=== PATIENT | female | born 1940 | race Caucasian/White ===

== ENCOUNTER 2017-11-05 12:39 | Inpatient (IN) | payer MEDICARE ==
[2017-11-05 13:11] LABS: ABS Basophils 0.1 10^3/ul (0-0.2); ABS Eosinophils 0.2 10^3/ul (0-0.6); ABS Lymphocytes 2.6 10^3/ul (1.0-4.8); ABS Monocytes 0.8 10^3/ul (0-0.8); ABS Nucleated RBC 0 10^3/ul; Eosinophil % 2.6 % (0-6); Hematocrit 32 % (35-47); Hemoglobin 10.9 g/dl (12.0-16.0); Lymphocyte % 29.6 % (25-47); Mean Corpuscular HGB Conc 34 g/dl (31-36); Mean Corpuscular Hemoglobin 32 pg (27-31); Mean Corpuscular Volume 95 fL (80-97); Mean Platelet Volume 9.9 um3 (7.4-10.4); Nucleated Red Blood Cells % 0.1; Platelet Count 163 10^3/ul (150-450); Red Blood Count 3.41 10^6/ul (4.00-5.40); Red Cell Distribution Width 14 % (10.5-15); White Blood Count 8.6 10^3/ul (3.5-10.8)
[2017-11-05 13:16] LABS: INR 0.99 (0.77-1.02)
[2017-11-05 13:34] LABS: EGFR Non-African American 50.7 (>60)
[2017-11-05] MEDS ORDERED: nitroGLYCERIN DRIP* 25,000 MCG/250 ML BTL IV ONE (14:38)
[2017-11-05] MEDS ORDERED: Metoprolol Tartrate IV* 1 MG/ML 5 ML VIAL IV ONE (14:48)
--- NOTE | 2017-11-05 15:03 | RAD ---
Indication: 2 days chest pain and shortness of breath. Coronary artery disease. Comparison: June 11, 2017 CT abdomen and August 30, [address] Technique: Upright AP 1352 hours Report: No focal pulmonary lesion, compelling alveolar consolidation, pleural effusion, pneumothorax. Mild rarefaction of interstitial markings. The heart, pulmonary vasculature, and mediastinal contours are unremarkable. IMPRESSION: #. No evidence for acute intrathoracic disease. #. Rarefaction of the interstitial markings suspicious for potential chronic obstructive pulmonary disease.
[2017-11-05] MEDS ORDERED: Potassium Chloride LIQUID* 20 MEQ PACKET PO ONE (16:05)
[2017-11-05] MEDS ORDERED: Nitroglycerin 2% OINT* 1 GM PAK ONE (16:07)
[2017-11-05] MEDS: Nitroglycerin 2% OINT* 1 GM PAK TOPICAL SCH (16:10)
--- NOTE | 2017-11-05 17:03 | ECHO ---
Patient: DELMA SERNA [facility] Rec#: [id number] : 1940 Date: 11/05/2017 Age: 77y Height: 157.5 cm / 62.0 in Weight: 55.8 kg / 123.0 lbs Sex: F BSA: 1.6 Room#: ED 5 Admit Date#: 11/05/2017 Type: Inpatient Referring: Wyatt Gutierrez MD Reading: Angel Salazar MD Street Light Repairer Helper: Keesha Rodriguez RN RDCS CC: Nadya Zavala MD Transthoracic Echocardiogram Indication: Chest pain BP: 127/66 HR: 74 Rhythm: NSR Findings History: CAD with stent, A. fib, HTN, HLD, hypothyroidism, AAA. Technical Comments: The study quality is fair. Left Ventricle: The left ventricular chamber size is decreased. Mild concentric left ventricular hypertrophy is observed.Sigmoid septum up to 16 mm. There is increased basal septal hypertrophy noted without evidence of an increased gradient across the left ventricular outflow tract. Global left ventricular wall motion and contractility are within normal limits. The left ventricle appears hyperdynamic. The estimated ejection fraction is greater than 65%. Abnormal left ventricular diastolic function is observed. Abnormal left ventricular diastolic filling is observed, consistent with impaired relaxation. Left Atrium: The left atrial chamber size is normal. Right Ventricle: The right ventricular chamber size and systolic function are within normal limits. Right Atrium: The right atrial cavity size is normal. Aortic Valve: The aortic valve is trileaflet. The aortic valve leaflets are mildly thickened. There is no evidence of aortic regurgitation. There is no evidence of aortic stenosis. Mitral Valve: There is mitral annular calcification. The mitral valve leaflets are mildly thickened. There is trace to mild mitral regurgitation. There is no evidence of mitral stenosis. Chordal systolic anterior motion is visualized. Tricuspid Valve: The tricuspid valve leaflets are normal. There is trace to mild tricuspid regurgitation. No pulmonary hypertension is noted. There is no tricuspid stenosis. Pulmonic Valve: The pulmonic valve appears normal. There is a trace pulmonic regurgitation. There is no pulmonic stenosis. Pericardium: There is no significant pericardial effusion. A pericardial fat pad is visualized. Aorta: There is no dilatation of the ascending aorta. The aortic arch is not well visualized. There is no dilation of the aortic root. Pulmonary Artery: The main pulmonary artery appears normal. Venous: The inferior vena cava appears normal in size. There is a greater than 50% respiratory change in the inferior vena cava dimension. Conclusions Mild concentric left ventricular hypertrophy is observed; Sigmoid septum up to 16 mm. The left ventricle appears hyperdynamic. The estimated ejection fraction is greater than 65%. Abnormal left ventricular diastolic filling is observed, consistent with impaired relaxation. The aortic valve leaflets are mildly thickened. There is trace to mild mitral regurgitation. There is trace to mild tricuspid regurgitation. Similar to 4.25.18 Measurements Name Value Normal Range RVDdMajor (2D) 2.8 cm (2.2 - 4.4) RAd ISD 4CH 4.6 cm (3.4 - 4.9) RA (A4C)W 2.7 cm (2.9 - 4.6) IVSd (2D) 1.6 cm (0.6 - 1) LVPWd (2D) 1.2 cm (0.6 - 1) LVIDd (2D) 3.1 cm (3.6 - 5.4) LVIDs (2D) 2.2 cm - LV FS (2D) 29 % (25 - 45) Aortic Annulus 1.6 cm (1.4 - 2.6) Ao root diameter (2D) 2.6 cm (2.1 - 3.5) Ascending Ao 3.1 cm (2.1 - 3.4) LA dimension (AP) 2D 3.2 cm (2.3 - 3.8) LAd ISD 4CH 4.5 cm (2.9 - 5.3) LA ISD 4CH W 3.1 cm (2.5 - 4.5) Name Value Normal Range LA ESV SP 4CH (A/L) 28 ml - LA ESV SP 2CH (A/L) 30 ml - LA ESV BP (A/L) 30 ml - LA ESV BP (A/L) index 19 ml/m2 - LA ESV SP 4CH (MOD) 26 ml - LA ESV SP 2CH (MOD) 29 ml - Name Value Normal Range MV E-wave Vmax 0.7 m/sec - MV deceleration time 286 msec - MV A-wave Vmax 1.2 m/sec - MV E:A ratio 0.6 ratio - LV septal e' Vmax 0.05 m/sec - LV lateral e' Vmax 0.08 m/sec - LV E:e' septal ratio 14 ratio - LV E:e' lateral ratio 8.8 ratio - Name Value Normal Range AV Vmax 1.5 m/sec - AV VTI 33.6 cm - AV peak gradient 8.8 mmHg - AV mean gradient 5.4 mmHg - LVOT Vmax 1.2 m/sec - LVOT VTI 28.7 cm - LVOT peak gradient 5.4 mmHg - LVOT mean gradient 3.7 mmHg - Name Value Normal Range TR Vmax 2.6 m/sec - TR peak gradient 27 mmHg - RAP 3 mmHg - RVSP 30 mmHg - IVC diameter 1.3 cm - Name Value Normal Range PV Vmax 1 m/sec -
[2017-11-05] MEDS ORDERED: Al Hydrox/Mg Hydrox/Simet LIQ* 30 ML UDC PO PRN (17:09)
[2017-11-05] MEDS ORDERED: Ondansetron INJ* 2 MG/ML VIAL IV PRN (17:09)
[2017-11-05] MEDS ORDERED: Iodixanol* (CONTRAST) 320 MG/ML 100 ML SDV IV ONE ×2 (17:40→19:08)
--- NOTE | 2017-11-05 17:47 | ED ---
Rober Nino Angela, scribed for Wyatt Gutierrez MD on 11/05/17 at 1248 . HPI Chest Pain - HPI Summary HPI Summary: This pt is a 77 y/o female presenting to [facility] via EMS c/o chest pain. Pt reports she was ambulating at home today when she suddenly felt SOB at around 12 :00. She notes her chest pain is mid sternal and sometimes radiates to her back between her shoulder blades. EMS administered 324 mg aspirin and nitroglycerin with some relief. Pt notes she has had this chest pain in the past. PMHx includes s/p stent in 2003 (in [place] by Dr. Campbell). Her technical sme is Dr. Salazar. - History of Current Complaint Hx Obtained From: Patient Hx Last Menstrual Period: Years ago. Onset/Duration: Started Hours Ago, Still Present Timing: Lasting Hours Current Severity: Moderate Pain Intensity: 4 Pain Scale Used: 0-10 Numeric Chest Pain Location: Mid Sternal Character: Dull/Aching - Dull Aggravating Factor(s): Nothing Alleviating Factor(s): Nothing Associated Signs and Symptoms: Positive: Chest Pain. Negative: Nausea, Vomiting - Allergy/Home Medications Allergies/Adverse Reactions: Allergies Allergy/AdvReac Type Severity Reaction Status Date / Time albuterol Allergy Intermediate Hives Verified 11/05/17 16:08 tetanus toxoid, adsorbed Allergy Intermediate Rash Verified 11/05/17 16:08 Home Medications: Home Medications Aspirin EC TAB* [Ecotrin EC Low Dose 81 MG*] 81 mg PO DAILY 11/05/17 [History Confirmed 11/05/17] Cholecalciferol TAB* [Vitamin D TAB*] 1,000 unit PO DAILY 11/05/17 [History Confirmed 11/05/17] Digoxin TAB* [Lanoxin TAB*] 0.25 mg PO .FIVE TIMES A WEEK 11/05/17 [History Confirmed 11/05/17] Diltiazem CD CAP* [Cardizem CD CAP*] 240 mg PO DAILY 11/05/17 [History Confirmed 11/05/17] Levothyroxine TAB* [Synthroid TAB*] 75 mcg PO DAILY 11/05/17 [History Confirmed 11/05/17] LoraTADine TAB(NF) [Claritin 10 MG TAB(NF)] 10 mg PO DAILY 11/05/17 [History Confirmed 11/05/17] Rosuvastatin (NF) [Crestor (NF)] 2.5 mg PO QPM 11/05/17 [History Confirmed 11/05] Spironolactone TAB* [Aldactone TAB*] 25 mg PO DAILY 11/05/17 [History Confirmed 11/05/17] Ubidecarenone [Coq10] 100 mg PO DAILY 11/05/17 [History Confirmed 11/05/17] Valsartan TAB* [Diovan TAB*] 40 mg PO BID 11/05/17 [History Confirmed 11/05/17] PMH/Surg Hx/FS Hx/Imm Hx Endocrine/Hematology History: Reports: Hx Anticoagulant Therapy - Asa 81 mg a day. , Hx Thyroid Disease Denies: Hx Diabetes Cardiovascular History: Reports: Hx Angina, Hx Coronary Artery Disease - stent 2003, Hx Hypercholesterolemia, Hx Hypertension, Other Cardiovascular Problems/ Disorders - AORTIC ANEURYSM, HIATAL HERNIA Denies: Hx Congestive Heart Failure, Hx Deep Vein Thrombosis, Hx Myocardial Infarction, Hx Pacemaker/ICD Respiratory History: Denies: Hx Asthma, Hx Chronic Obstructive Pulmonary Disease (COPD), Hx Lung Cancer GI History: Reports: Other GI Disorders - hiatal hernia Denies: Hx Gall Bladder Disease, Hx Gastrointestinal Bleed, Hx Ulcer, Hx Urosepsis History: Denies: Hx Kidney Stones, Hx Renal Disease Musculoskeletal History: Reports: Hx Arthritis Sensory History: Reports: Hx Contacts or Glasses Denies: Hx Hearing Aid Opthamlomology History: Reports: Hx Contacts or Glasses Neurological History: Denies: Hx Dementia, Hx Migraine, Hx Seizures, Hx Transient Ischemic Attacks (TIA) Psychiatric History: Denies: Hx Anxiety, Hx Depression, Hx Panic Disorder, Hx Schizophrenia, Hx Bipolar Disorder - Cancer History Hx Chemotherapy: No Hx Radiation Therapy: No - Surgical History Surgery Procedure, Year, and Place: Right total hip. ACS MULTILINK - cardiac stent - 2003. carotid artery surgery. hiatal hernia repair- Infectious Disease History: Denies: Hx Clostridium Difficile, Hx Hepatitis, Hx Human Immunodeficiency Virus (HIV), Hx of Known/Suspected MRSA, Hx Shingles, Hx Tuberculosis, Hx Known/ Suspected VRE, Hx Known/Suspected VRSA, History Other Infectious Disease - Family History Known Family History: Positive: Cardiac Disease - Mother Family History: Father: CVA - Social History Alcohol Use: Rare Substance Use Type: Reports: None Smoking Status (MU): Never Smoked Tobacco Have You Smoked in the Last Year: No Review of Systems Negative: Fever, Chills Positive: Chest Pain Positive: Shortness Of Breath. Negative: Cough All Other Systems Reviewed And Are Negative: Yes Physical Exam - Summary Physical Exam Summary: Appearance: The patient is well-nourished in no acute distress and in no acute pain. Skin: The skin is warm and dry and skin color reflects adequate perfusion. HEENT: The head is normocephalic and atraumatic. The pupils are equal and reactive. The conjunctivae are clear and without drainage. Nares are patent and without drainage. Mouth reveals moist mucous membranes and the throat is without erythema and exudate. The external ears are intact. The ear canals are patent and without drainage. The tympanic membranes are intact. Neck: the neck is supple with full range of motion and non-tender. There are no carotid bruits. There is no neck vein distension. Respiratory: Chest is non-tender. Lungs are clear to auscultation and breath sounds are symmetrical and equal. Cardiovascular: Heart is regular rate and rhythm. Pt has a systolic ejection murmur. There is no peripheral edema and pulses are symmetrical and equal. Abdomen: The abdomen is soft and non-tender. There are normal bowel sounds heard in all four quadrants and there is no organomegaly palpated. Musculoskeletal: There is no back tenderness noted. Extremities are non-tender with full range of motion. There is good capillary refill. There is no peripheral edema or calf tenderness elicited. Neurological: Patient is alert and oriented to person, place and time. Psychiatric: The patient has an appropriate affect and does not exhibit any anxiety or depression. Triage Information Reviewed: Yes Vital Signs On Initial Exam: Initial Vitals Temp Pulse Resp BP Pulse Ox 97.7 F 89 18 138/81 96 11/05/17 12:58 11/05/17 12:58 11/05/17 12:58 11/05/17 12:58 11/05/17 12:58 Vital Signs Reviewed: Yes Diagnostics - Vital Signs Vital Signs Temp Pulse Resp BP Pulse Ox 11/05/17 17:41 61 18 125/63 96 11/05/17 12:58 97.7 F 89 18 138/81 96 - Laboratory Lab Results: Lab Results 06/29/18 06/29/18 06/29/18 Range/Units 13:01 13:01 13:01 WBC 8.6 (3.5-10.8) 10^3/ul RBC 3.41 L (4.00-5.40) 10^6/ul Hgb 10.9 L (12.0-16.0) g/dl Hct 32 L (35-47) % MCV 95 (80-97) fL MCH 32 H (27-31) pg MCHC 34 (31-36) g/dl RDW 14 (10.5-15) % Plt Count 163 (150-450) 10^3/ul MPV 9.9 (7.4-10.4) um3 Neut % (Auto) 58.5 (38-83) % Lymph % (Auto) 29.6 (25-47) % Gulf % (Auto) 8.7 H (0-7) % Eos % (Auto) 2.6 (0-6) % Baso % (Auto) 0.6 (0-2) % Absolute Neuts (auto) 5.0 (1.5-7.7) 10^3/ul Absolute Lymphs (auto) 2.6 (1.0-4.8) 10^3/ul Absolute Monos (auto) 0.8 (0-0.8) 10^3/ul Absolute Eos (auto) 0.2 (0-0.6) 10^3/ul Absolute Basos (auto) 0.1 (0-0.2) 10^3/ul Absolute Nucleated RBC 0 10^3/ul Nucleated RBC % 0.1 INR (Anticoag Therapy) 0.99 (0.77-1.02) Sodium 137 (135-145) mmol/L Potassium 3.9 (3.5-5.0) mmol/L Chloride 104 (101-111) mmol/L Carbon Dioxide 23 (22-32) mmol/L Anion Gap 10 (2-11) mmol/L BUN 21 (6-24) mg/dL Creatinine 1.05 H (0.51-0.95) mg/dL Est GFR ( Amer) 61.3 (>60) Est GFR (Non-Af Amer) 50.7 (>60) BUN/Creatinine Ratio 20.0 (8-20) Glucose 98 (70-100) mg/dL Lactic Acid (0.5-2.0) mmol/L Calcium 9.4 (8.6-10.3) mg/dL Total Bilirubin 0.50 (0.2-1.0) mg/dL AST 17 (13-39) U/L ALT 11 (7-52) U/L Alkaline Phosphatase 42 (34-104) U/L Troponin I 0.01 (<0.04) ng/mL Total Protein 6.8 (6.4-8.9) g/dL Albumin 3.8 (3.2-5.2) g/dL Globulin 3.0 (2-4) g/dL Albumin/Globulin Ratio 1.3 (1-3) TSH 2.45 (0.34-5.60) mcIU/mL Digoxin 1.2 (0.8-2.0) ng/ml 11/05/17 11/05/17 Range/Units 13:01 15:40 WBC (3.5-10.8) 10^3/ul RBC (4.00-5.40) 10^6/ul Hgb (12.0-16.0) g/dl Hct (35-47) % MCV (80-97) fL MCH (27-31) pg MCHC (31-36) g/dl RDW (10.5-15) % Plt Count (150-450) 10^3/ul MPV (7.4-10.4) um3 Neut % (Auto) (38-83) % Lymph % (Auto) (25-47) % Gulf % (Auto) (0-7) % Eos % (Auto) (0-6) % Baso % (Auto) (0-2) % Absolute Neuts (auto) (1.5-7.7) 10^3/ul Absolute Lymphs (auto) (1.0-4.8) 10^3/ul Absolute Monos (auto) (0-0.8) 10^3/ul Absolute Eos (auto) (0-0.6) 10^3/ul Absolute Basos (auto) (0-0.2) 10^3/ul Absolute Nucleated RBC 10^3/ul Nucleated RBC % INR (Anticoag Therapy) (0.77-1.02) Sodium (135-145) mmol/L Potassium (3.5-5.0) mmol/L Chloride (101-111) mmol/L Carbon Dioxide (22-32) mmol/L Anion Gap (2-11) mmol/L BUN (6-24) mg/dL Creatinine (0.51-0.95) mg/dL Est GFR ( Amer) (>60) Est GFR (Non-Af Amer) (>60) BUN/Creatinine Ratio (8-20) Glucose (70-100) mg/dL Lactic Acid 1.1 (0.5-2.0) mmol/L Calcium (8.6-10.3) mg/dL Total Bilirubin (0.2-1.0) mg/dL AST (13-39) U/L ALT (7-52) U/L Alkaline Phosphatase (34-104) U/L Troponin I 0.01 (<0.04) ng/mL Total Protein (6.4-8.9) g/dL Albumin (3.2-5.2) g/dL Globulin (2-4) g/dL Albumin/Globulin Ratio (1-3) TSH (0.34-5.60) mcIU/mL Digoxin (0.8-2.0) ng/ml Result Diagrams: 11/05/17 13:01 11/05/17 13:01 Lab Statement: Any lab studies that have been ordered have been reviewed, and results considered in the medical decision making process. - Radiology Chest XR Xray Interpretation: No Acute Changes - IMPRESSION: 1. No evidence for acute intrathoracic disease. 2. Rarefaction of the insterstitial markings suspicioius for potential chronic obstructive pulmonary disease. Dr. Gutierrez has reviewed this radiology report. Radiology Interpretation Completed By: Radiologist - EKG 12:40 Cardiac Rate: NL - at 96 bpm EKG Rhythm: Sinus Rhythm EKG Interpretation: Diffuse non-specific ST depressions 16:26 Cardiac Rate: NL - at 63 bpm EKG Rhythm: Sinus Rhythm EKG Interpretation: With resolution of the diffuse ST depressions. - Additional Comments Diagnostic Additional Comments: Transthoracic Echocardiogram, as read by Dr. Angel Salazar CONCLUSIONS: Mild concentric left ventricular hypertrophy is observed; Sigmoid septum up to 16 mm. The left ventricle appears hyperdynamic. The estimated ejection fraction is greater than 65%. Abnormal left ventricular diastolic filling is observed, consistent with impaired relaxation. The aortic valve leaflets are mildly thickened. There is trace to mild mitral regurgitation. There is trace to mild tricuspid regurgitation. Similar to 4.25.18. Chest Pain Course/Dx - Course Course Of Treatment: Ms. Araiza presented to the emergency department after about an hour of chest pain which came on while she was walking outside the house. She got some relief with nitroglycerin and aspirin in the ambulance. On arrival her vitals were stable and she and she had an immediate EKG which showed diffuse ST segment depression. She was on digoxin but has been for a long time and previous EKGs did not show this depression. Initial troponin was 0.[address] Salazar with my concern for ongoing chest pain although was much improved. She was started on nitroglycerin and given a dose of Lopressor and the hospitalist was contacted for admission. A repeat EKG showed normalization of her previous diffuse ST depressions. - Diagnoses Provider Diagnoses: Chest pain - Provider Notifications Discussed Care Of Patient With: Goldy Roy Time Discussed With Above Provider: 14:50 Instructed by Provider To: Admit As Inpatient - Critical Care Time Critical Care Time: 30-74 min Discharge - Sign-Out/Discharge Documenting (check all that apply): Discharge/Admit/Transfer - Admit - Discharge Plan Condition: Stable Disposition: ADMITTED TO [facility] Referrals: Nadya Martinez MD [Primary Care Provider] - - Billing Disposition and Condition Condition: STABLE Disposition: Admitted to [facility] The documentation as recorded by the Rober chavez Angela accurately reflects the service I personally performed and the decisions made by me, Wyatt Gutierrez MD.
[2017-11-05] MEDS ORDERED: Metoprolol Tartrate IV* 1 MG/ML 5 ML VIAL IV SCH (18:00)
[2017-11-05] MEDS ORDERED: Potassium Chlor TAB* 20 MEQ TAB.ER PO ONE (18:43)
--- NOTE | 2017-11-05 19:40 | RAD ---
INDICATION: Chest pain. Midsternal radiating to back. Assess for aortic dissection. COMPARISON: August 31, 2012 CT. TECHNIQUE: Multidetector CT images were obtained from the lung apices to the upper abdomen with 100 mL Visipaque 320 IV contrast. Pulmonary angiogram protocol. Multiplanar reformation including with maximum intensity projection. REPORT: Mild bilateral dependent subsegmental atelectasis. Negative for pleural effusions or pneumothorax. Negative for thoracic lymphadenopathy, cardiomegaly, pericardial effusion. The thoracic aorta measures up to 2.6 cm diameter at the root, 3.1 cm at the ascending segment at the level of the main pulmonary artery, 2.5 cm at the proximal arch, 2.5 cm at the distal arch, and 3.2 cm at the distal descending segment. Atherosclerotic plaque with foci of penetrating ulcers at the distal descending thoracic aorta. No intramural hematoma or periarterial hematoma evident. Negative for arterial dissection. Negative for hemodynamic significant aortic stenosis. Atherosclerotic plaque results in approximate 30% RIGHT and 90% LEFT ostial renal artery stenosis. No filling defects are identified from the main to the subsegmental pulmonary arteries to indicate presence of a pulmonary embolism. No suspicious visceral abnormality is at the visualized upper abdomen. Negative for suspicious focal osseous lesions. IMPRESSION: #. Negative for dissection of the thoracic aorta. Fusiform aneurysm of the distal descending thoracic aorta measuring up to 3.2 cm diameter increased from 3.0 cm previously. Significant atherosclerotic plaque with progression compared with the 2013 exam. Foci of penetrating ulcers at the distal descending thoracic aorta without evidence for intramural hematoma or periarterial hematoma. #. Hemodynamic significant LEFT renal artery stenosis with interval worsening. #. No evidence for pulmonary embolism.
[2017-11-05] MEDS: Metoprolol Tartrate IV* 1 MG/ML 5 ML VIAL IV SCH (20:06)
[2017-11-05] MEDS: Heparin VIAL(*) 5000 UNITS/ML VIAL (FIVE THOUSAND) SUBCUT SCH (20:06)
--- NOTE | 2017-11-05 20:48 | CONS ---
CARDIOLOGY CONSULTATION: ADDENDUM: DATE OF CONSULT: 11/05/17 MEDICATIONS: Her medications at home include: 1. CoQ10, 100 mg a day. 2. Cholecalciferol 1000 units a day. 3. Spironolactone 25 mg a day. 4. Levothyroxine. 5. Synthroid 75 mcg a day. 6. Diltiazem 240 mg a day. 7. Aspirin 81 mg a day. 8. Valsartan 40 mg once a day. 9. Rosuvastatin 2.5 mg daily for the last 2 months. 10. Claritin 10 mg a day. 11. Digoxin 0.25 mg 5 times a week. [id number] #: [id number]
[2017-11-05] MEDS: Valsartan TAB* 40 MG PO SCH ×2 (20:58→21:01)
[2017-11-05] MEDS: CMC:Rosuvastatin (NF) 5 MG TAB PO SCH (20:58)
--- NOTE | 2017-11-05 22:03 | CONS ---
EMR NOTE: DATE OF SERVICE: 11/05/17 REASON FOR EVALUATION: Chest pain, EKG changes. HISTORY OF PRESENT ILLNESS: This is a very pleasant 77-year-old woman, who is known to me from previous evaluation. She has a history of hypertension, coronary artery disease, and vascular disease. She was in her usual state of health until about Wednesday when she had some lettuce, which she felt did not taste right. She said yesterday morning, she had diarrhea and dry heaves and felt chilled, nauseated and sweaty for about 4 to 5 minutes. She felt unsteady as if a vertigo was developing. She took it easy the rest of the day and slept. This morning, she got up and went outside to check on some yard work. She said she felt poorly and was short of breath and had some tightness in her epigastric area. Because of those symptoms, she decided to drive to her house. En route to her house, she decided to stop at our office. She went to the office and was told to get an ambulance and was transported to the hospital. Blood pressure apparently was in the 80s. She got nitroglycerin with some relief of her symptoms, but she has persistent left scapular pain. She said her pain radiated to her back. Currently, her blood pressure is in the 120s. She denies any syncope. No orthopnea. No peripheral edema. No palpitations. She denies any fevers. She did have the chills, diarrhea, and dry heaves yesterday as mentioned above. No diarrhea today. She denies any strokes or mini strokes. No bleeding problems. She had an ultrasound back in September, which revealed a bilobed abdominal aortic aneurysm measuring up to 3.6 cm in transverse dimension, increased from 3.1 on the previous. She had a CT angio of the abdomen, revealed heavy calcification of the abdominal aorta. This was from 10/19/17; this was a CT angio. At the level of the diaphragmatic hiatus, it is aneurysmally dilated to 3.4 x 3.5. There is some circumferential thrombus in the suprarenal abdominal aorta, focal area of high- grade stenosis at the origin of the celiac axis, vfjj-ld-mudtvxge narrowing of the right renal artery, and coegmmeu-zm-jxhz grade stenosis of the left renal artery. PAST MEDICAL/SURGICAL HISTORY: Includes hypertension; hyperlipidemia; paroxysmal SVT; coronary arteriosclerosis, status post stenting of her LAD in 2003. She had recurrent chest pain and had a cath in July of 2011 that revealed a patent stent in her LAD and no significant obstruction. She has history of mitral regurgitation and 2/6 systolic ejection murmur at the left base. She has a history of renal artery stenosis. She had a Cypher stent placed in her LAD in June [address] [facility] [address] Salmeron. She has gastroesophageal reflux; hiatal hernia, status post surgery for the hiatal hernia in 2014; left carotid endarterectomy in March 2004; tonsillectomy; skin lesion resection in 2010 of her ear on the left. She had a right hip replacement in 2014. She had labile blood pressures and had an ambulatory blood pressure monitor in September, which revealed normal average blood pressures. ALLERGIES: Include DIPHTHERIA, ALBUTEROL, ZETIA, and multiple intolerances of statins with Zocor and Lipitor causing fatigue and myalgias. FAMILY HISTORY: Includes father due to a stroke and heart disease at 82. Mother due to heart disease at 77, of an abdominal aneurysm. SOCIAL HISTORY: She is as of last year, lives alone. She has a son, who accompanies her. 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 She reports rare alcohol use. Denies smoking. MEDICATIONS: Her medications at home include: 1. CoQ10, 100 mg a day. 2. Cholecalciferol 1000 units a day. 3. Spironolactone 25 mg a day. 4. Levothyroxine. 5. Synthroid 75 mcg a day. 6. Diltiazem 240 mg a day. 7. Aspirin 81 mg a day. 8. Valsartan 40 mg once a day. 9. Rosuvastatin 2.5 mg daily for the last 2 months. 10. Claritin 10 mg a day. 11. Digoxin 0.25 mg 5 times a week. REVIEW OF SYSTEMS: Review of systems x10 was negative except as above. PHYSICAL EXAM: She is a well-developed, well-nourished female appearing younger than her stated age. Blood pressure 127/78, pulse of 73, afebrile. No significant JVD. Carotids 2+ with a right carotid bruit. Extraocular muscles intact. Sclerae anicteric. Cardiac Exam: S1, S2 with a 2/6 systolic ejection murmur at the base. Chest was clear. No CVAT. Abdomen: Bowel sounds present, nontender. No hepatosplenomegaly. Femoral pulses intact without bruits. Distal pulses intact. No edema. Motor strength 5/5 bilaterally. Deep tendon reflexes 2/4. Alert and oriented x3. Skin turgor normal. DIAGNOSTIC STUDIES/LAB DATA: Include CBC with a hematocrit of 32; white count of 8.6; the hematocrit is down from 41 in April and 40 in March of 2016. Sodium was 139, potassium of 3.9, BUN of 21, creatinine of 1.05. Dig level was 1.2; it was 0.9 in August. Troponin was 0.01 at 1301. Chest x-ray by report revealed possible chronic obstructive pulmonary disease. EKG revealed sinus rhythm at [address]ressions up to 1 mm diffusely, consider ischemia , counterclockwise rotation. These are more pronounced compared to the previous EKG of September, possible dig effect versus ischemia. An echo was being performed at the bedside at the time of this dictation. Preliminary report revealed hyperdynamic LV function, no significant wall motion abnormalities on a quick survey. IMPRESSION AND PLAN: My impression is that Ms. Araiza has chest pain of unclear etiology after recent GI syndrome. She also is anemic and she has new EKG changes. The etiology of her symptoms is unclear. The EKG changes could represent ischemia or rate-related changes or digoxin-related changes; however, I think she deserves to be observed and ischemia needs to be excluded. For the time being, I would recommend the following: Would use p.r.n. IV beta-blockers to try to slow her heart rate and control her angina. We will use nitrates as needed to control her symptoms. consider hydrating her since her blood pressure appeared to be relatively normal to low normal. would try to maintain her potassium over 4 given her history of supraventricular tachycardia. would follow up for hematemesis, hematochezia given her drop in hematocrit. Would obtain an echo as you are doing to evaluate for wall motion abnormalities. If her troponins increase and her symptoms persist, consider cardiac catheterization. We would consider possibility of spasm since she had anginal-type symptoms back in 2011 and a negative cath. We will check blood pressure in the upper extremities. If she has persistent unexplained symptoms, consider CT scan of her chest and abdomen for abdominal aortic aneurysm. [id number]/[id number] #: [id number] [facility] CENTERKathy
[2017-11-06] MEDS: Metoprolol Tartrate IV* 1 MG/ML 5 ML VIAL IV SCH ×4 (00:31→10:23)
[2017-11-06] MEDS ORDERED: NS 0.9% 1000 ML* 1,000 ML IV SCH (00:45)
--- NOTE | 2017-11-06 00:49 | PN ---
Hospitalist Progress Note Date of Service: 11/06/17 Patient seen at the bedside updated on CTA chest exam reports. still waiting on ultrasound report. Patient reports that chest pain has improved since admission. Will continue with current plan. Patient was instructed to notify nursing staff if she develops any changes in her chest pain.
--- NOTE | 2017-11-06 01:09 | HP ---
CC: Dr. Zavala; Dr. Salazar * HISTORY AND PHYSICAL: DATE OF ADMISSION: 11/05/17 PROVIDER: Sybil Alamo NP PRIMARY CARE PHYSICIAN: Dr. Nadya Zavala. MY ATTENDING PHYSICIAN WHILE IN THE HOSPITAL: Dr. Ugo Roy * (dictated by Sybil Alamo NP). CHIEF COMPLAINT: Chest pain. HISTORY OF PRESENT ILLNESS: Ms. Araiza is a 77-year-old female with a past medical history significant for hypertension, coronary artery disease with stenting in the LAD in 2003, dyslipidemia, abdominal aortic aneurysm discovered in 2012, GERD, hypothyroid and paroxysmal SVT nonsustained. She presented to the emergency room today complaining of feeling terrible, states that she felt very fatigued and complained of left-sided chest pain radiating to her left shoulder blade. She reports that the tightness comes and goes in her chest and that she has had this chest pain on and off x2 weeks. She states that on Wednesday night, she was eating salad that did not taste very good and developed diarrhea that started morning at approximately 4 a.m. She reports that she had 5 episodes of diarrhea between 4 a.m. and 7 a.m. on . She reports that she rested the rest of the day, but continued not to feel well. She states that she had the dry heaves. She got dizzy and she broke out in a sweat. She reports that her blood pressure was low at home and her systolic blood pressure was 88. On , she reports that she was able to sleep all night and just took things slowly, she was moving slowly and continued to be fatigued. She does report today that on Wednesday, she went outside as she had people working at her house, she felt dizzy and short of breath with walking and so, she rested against a tree outside until it improved. She reports that at that time, she became very concerned and drove herself to her morphologist's office, Dr. Salazar, who called the ambulance and had her transported to the emergency room for further evaluation. The patient reports that she has just been feeling fatigued and increased shortness of breath over the past couple of days as well as having the episode of diarrhea. She does not report any further diarrhea. She does report that during her episodes of diarrhea, she does have hemorrhoids and that the hemorrhoids were bleeding. She denies any further bleeding. She denies any black or tarry stools. She does report that the bleeding was bright red, but only with the episodes of diarrhea and that the stool was brown in color. She denies any fever or chills. She denies any cough or congestions. She does report chest pain that is left sided, radiates to her left scapula and her posterior back. She also does complain of some right upper quadrant abdominal pain. She does report some nausea and dry heaving. She does report diarrhea that she had yesterday. She denies any LOCs. She denies any rashes or open lesions. Due to her continued chest pain, we were asked to see and evaluate her by the emergency room. PAST MEDICAL HISTORY: Significant for: 1. Hypertension. 2. Coronary artery disease with stent placed in the LAD in 2003. 3. Dyslipidemia. 4. Abdominal aortic aneurysm discovered in 2012. Last reported at 3.6 cm in 2018. 5. GERD. 6. Hypothyroid. 7. Paroxysmal SVT, nonsustained. PAST SURGICAL HISTORY: 1. Left carotid endarterectomy. 2. Hiatal hernia repair in 2012. 3. Right hip replacement. 4. Tonsillectomy. HOME MEDICATIONS: Include: 1. CoQ10. 2. Vitamin D 1000 units daily. 3. Aldactone 25 mg p.o. daily. 4. Levothyroxine 75 mcg p.o. daily. 5. Diltiazem 240 mg p.o. daily. 6. Aspirin 81 mg p.o. daily. 7. Valsartan 40 mg once daily. 8. Crestor 2.5 mg p.o. daily. 9. Claritin 10 mg p.o. daily. 10. Digoxin 0.25 mg 5 times a week. ALLERGIES TO MEDICATIONS: 1. TETANUS. 2. ALBUTEROL. FAMILY HISTORY: She does report mother with a history of coronary artery disease and father with a history of stroke. SOCIAL HISTORY: She denies any tobacco or drug use. She does report rare alcohol intake. She is . Surrogate decision maker in the event she is unable to make her own decisions is her son, Rhett Araiza. CODE STATUS: She is a full code. REVIEW OF SYSTEMS: There is no documented fever. She denies any significant weight change. There was no double vision. There was no ear discharge. She denies any rhinorrhea. She denies sore throat. She does report left-sided chest pain radiating to her left scapula. She denies any orthopnea or nocturnal dyspnea. She does report right upper quadrant abdominal pain and diarrhea, nausea and dry heaves. No vomiting. She denies hematuria or dysuria. She denies any focal weakness or sensory loss. She denies any visual changes. She denies difficulty swallowing. She does report generalized body aches. Denies any rashes or lesions. Denies any depression or anxiety. She does report hemorrhoids that were bleeding when she had her several episodes of diarrhea. No further bleeding has been noted. She does report shortness of breath with walking today. She denies any edema. She does report a loss of appetite x2 days. PHYSICAL EXAMINATION GENERAL: At this time, Ms. Araiza is a 77-year-old female, who appears well, in no acute distress, resting on the stretcher in the emergency room. VITAL SIGNS: Blood pressure 138/81, temperature was 97.7, heart rate was 89, respirations 18, and O2 saturation was 96%. HEENT: Head is atraumatic, normocephalic. Eyes: EOMs are intact. Sclerae anicteric and not pale. Oral mucosa appears to be dry. There is no oropharyngeal erythema. NECK: Supple. LUNGS: Clear to auscultation bilaterally. No rales or rhonchi. CARDIAC: S1, S2. Regular rate and rhythm. There is no rubs or gallops. ABDOMEN: Soft and nontender. Bowel sounds are present x4. She does complain of right upper quadrant pain with palpation. EXTREMITIES: Pulses are +2 throughout. She is able to move all 4 extremities with 5/5 strength. There is no edema. NEUROLOGIC: She is awake, alert and oriented x3. Her speech is clear. There is no focal deficits. SKIN: Intact. DIAGNOSTIC STUDIES AND LABORATORY DATA: WBCs were 8.6, RBCs 3.41, hemoglobin was 10.9, hematocrit was 32, platelet count was 163. INR was 0.99. Sodium 137 , potassium 3.9, chloride 104, carbon dioxide was 23, anion gap was 10, BUN was 21, creatinine 1.05, lactic acid was 1.1, calcium 9.4, TSH was 2.45, troponin was 0.01 and 0.01 on a repeat. Her digoxin level was 1.2. Chest x-ray, no evidence of acute intrathoracic disease, verification of interstitial marking is suspicious for potential chronic obstructive pulmonary disease. She had transthoracic echocardiogram. Conclusion: Mild concentric left ventricular hypertrophy is observed, sigmoid septum up to 16 mm. The left ventricular appears hyperdynamic. The estimated ejection fraction is greater than 65%, abnormal left ventricular diastolic filling is observed consistent with impaired relaxation. The aortic valve leaflets are mildly thickened. There is fxfjs-hm-cojf mitral regurgitation. There is qqsok-lt-aldi tricuspid regurgitation. She had a CTA of the chest and thorax. Radiologist impression: Negative for dissection of the thoracic artery. 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 Hemodynamics, significant left renal artery stenosis with interval worsening, no evidence of pulmonary embolism. EKG showed sinus rhythm at a rate of 63. ASSESSMENT AND PLAN: Ms. Araiza is a 77-year-old female that presented to the emergency room today with complaints of chest pain radiating to left scapula. We were asked to see and evaluate her due to her history of coronary artery disease with stenting and her continued chest pain. She will be admitted an inpatient for: 1. Chest pain. We will continue to trend her troponins to rule out acute coronary syndrome. We will repeat an EKG in the morning. She did have a transthoracic echocardiogram, which shows an ejection fraction of 65%. She will be continued on a beta-ayde, Lopressor 5 mg IV q.4 hours as per Cardiology recommendation. She did have a CT of the chest as per cardiology recommendations to rule out dissection, which was negative for dissection and pulmonary embolism. She will continue her home medications of Aldactone, diltiazem, valsartan and digoxin as well as aspirin 81 mg daily. She will be monitored on telemetry. Cardiology was consulted in the emergency room, Dr. Salazar,evaluated the patient at the bedside in the emergency room. 2. Right upper quadrant abdominal pain. I will do an ultrasound of the right upper quadrant to rule out cholecystitis that may be a contributing factor to her chest and left scapula pain. 3. Hypertension. She will continue on her Aldactone, valsartan, Cardizem and digoxin. 4. Coronary artery disease with stenting. She will continue her Crestor and aspirin. 5. Hypothyroidism. She will continue on levothyroxine 75 mcg p.o. daily. 6. Dyslipidemia. She will continue on her Crestor 2.5 mg p.o. daily. We will repeat a fasting lipid panel in the morning. 7. History of abdominal aortic aneurysm discovered in 2012. Last report was 3.6 cm. At this point, she does not have any abdominal pain, hypotension no further intervention at this time. 8. FEN. She will be placed on a heart-healthy, decaf-okay diet. 9. DVT prophylaxis. I will place her on heparin subcu. 10. Code status. She is a full code. TIME SPENT: Time spent on this admission was 60 minutes, greater than half that time was spent [id number] with the patient obtaining my history and physical, the other half of the time was spent going over my plan of care with the patient and implementing my plan of care. I have discussed this with my attending, Dr. Low Roy, and he is in agreement with my plan. YSBIL ALAMO, JOSE [id number]/[id number] #: [id number] RONNA
[2017-11-06] MEDS: Heparin VIAL(*) 5000 UNITS/ML VIAL (FIVE THOUSAND) SUBCUT SCH ×3 (05:40→20:25)
[2017-11-06] MEDS: Levothyroxine TAB* 75 MCG TAB PO SCH ×2 (05:40→10:26)
[2017-11-06] MEDS: Nitroglycerin 2% OINT* 1 GM PAK TOPICAL SCH ×2 (05:46→13:34)
[2017-11-06] MEDS ORDERED: Nitroglycerin 2% OINT* 1 GM PAK TOPICAL SCH (06:00)
[2017-11-06 06:08] LABS: ABS Basophils 0 10^3/ul (0-0.2); ABS Eosinophils 0.3 10^3/ul (0-0.6); ABS Lymphocytes 2.4 10^3/ul (1.0-4.8); ABS Monocytes 0.4 10^3/ul (0-0.8); ABS Neutrophils 2.8 10^3/ul (1.5-7.7); ABS Nucleated RBC 0 10^3/ul; Eosinophil % 5.1 % (0-6); Hematocrit 26 % (35-47); Hemoglobin 9.2 g/dl (12.0-16.0); Lymphocyte % 39.4 % (25-47); Mean Corpuscular HGB Conc 35 g/dl (31-36); Mean Corpuscular Hemoglobin 33 pg (27-31); Mean Corpuscular Volume 94 fL (80-97); Mean Platelet Volume 9.5 um3 (7.4-10.4); Nucleated Red Blood Cells % 0; Platelet Count 135 10^3/ul (150-450); Red Blood Count 2.77 10^6/ul (4.00-5.40); Red Cell Distribution Width 14 % (10.5-15)
[2017-11-06 06:27] LABS: EGFR Non-African American 67.4 (>60)
[2017-11-06] MEDS ORDERED: Iohexol 350* (CONTRAST) 500 ML MDV IV SCH (08:38)
[2017-11-06] MEDS ORDERED: Levothyroxine TAB* 75 MCG TAB PO SCH (09:00)
--- NOTE | 2017-11-06 09:10 | RAD ---
Indication: Right upper quadrant pain. Real-time sonography of the right upper quadrant was performed. The liver measures 15.5 cm in length. There are no focal lesions or intrahepatic duct dilatation noted. The common duct measures 0.3 cm. Right kidney measures 9.8 x 4.9 x 4.9 cm with no hydronephrosis the pancreas is unremarkable. IMPRESSION: No evidence of cholelithiasis or biliary duct dilatation is noted.
--- NOTE | 2017-11-06 10:00 | RAD ---
Indication: Anemia. Decreased hemoglobin. Contrast: Administered 99.0 ml of OMNIPAQUE 350 mg/ml CTA of the abdomen and pelvis performed after IV contrast administration. Coronal and sagittal reconstructed images were obtained. There is atherosclerotic descending thoracic aorta with multiple plaques noted. The proximal abdominal aorta demonstrates peripheral thrombus and plaque. Atherosclerotic aorta is noted. No evidence of abdominal aortic aneurysm is noted. Renal arteries and superior mesenteric arteries demonstrates atherosclerosis but appear grossly patent. No retroperitoneal adenopathy is noted. No evidence of retroperitoneal hematoma is identified. The liver is normal in size. No focal lesions or intrahepatic ductal dilatation is noted. Vicarious excretion of contrast is noted in gallbladder. Common duct is not dilated. Pancreas demonstrates no mass or pancreatic duct dilatation. Spleen is normal in size. No adrenal masses are noted. The kidneys demonstrate symmetric nephrograms without hydronephrosis. CT of the pelvis demonstrates diverticulosis without definite evidence of diverticulitis. The uterus and ovaries are unremarkable. The urinary bladder is unremarkable. No free fluid is identified. The colon is filled with stool. Patient is status post right hip arthroplasty. IMPRESSION: There is ectasia of the descending thoracic aorta at the inlet measuring up to 3.1 cm in greatest dimension. There is peripheral soft plaque which appears irregular in the distal thoracic and proximal abdominal aorta. No evidence of retroperitoneal hematoma is noted. No other masses or fluid collections are identified. Patient is status post right hip replacement.
[2017-11-06] MEDS: Cholecalciferol TAB* 1000 UNITS PO SCH (10:27)
[2017-11-06] MEDS: Diltiazem CD CAP* 240 MG PO SCH (10:27)
[2017-11-06] MEDS: Aspirin EC TAB* 81 MG TAB.EC PO SCH (10:27)
[2017-11-06] MEDS: Cetirizine* 10 MG TAB PO SCH (10:27)
[2017-11-06] MEDS: Spironolactone TAB* 25 MG PO SCH (10:27)
[2017-11-06] MEDS: COENZYME Q10 ENTER STREGNTH PO SCH (10:28)
[2017-11-06] MEDS: Valsartan TAB* 40 MG PO SCH (10:28)
[2017-11-06] MEDS: DIRECTIONS PO SCH (10:28)
[2017-11-06] MEDS ORDERED: Calcium CHLORIDE 10% SYRINGE* 0.34 GM in D5W 100 ML BAG* 100 ML IV ONE (11:24)
[2017-11-06 14:14] LABS: ABS Basophils 0 10^3/ul (0-0.2); ABS Eosinophils 0.4 10^3/ul (0-0.6); ABS Lymphocytes 2.9 10^3/ul (1.0-4.8); ABS Monocytes 0.5 10^3/ul (0-0.8); ABS Neutrophils 3.6 10^3/ul (1.5-7.7); ABS Nucleated RBC 0 10^3/ul; Eosinophil % 4.9 % (0-6); Hematocrit 27 % (35-47); Hemoglobin 9.4 g/dl (12.0-16.0); Lymphocyte % 39.1 % (25-47); Mean Corpuscular HGB Conc 34 g/dl (31-36); Mean Corpuscular Hemoglobin 33 pg (27-31); Mean Corpuscular Volume 95 fL (80-97); Mean Platelet Volume 9.7 um3 (7.4-10.4); Nucleated Red Blood Cells % 0; Platelet Count 146 10^3/ul (150-450); Red Blood Count 2.89 10^6/ul (4.00-5.40); Red Cell Distribution Width 14 % (10.5-15); White Blood Count 7.3 10^3/ul (3.5-10.8)
[2017-11-06] MEDS: Acetaminophen TAB* 325 MG PO PRN ×2 (15:20→23:21)
[2017-11-06] MEDS: CMC:Rosuvastatin (NF) 5 MG TAB PO SCH (17:58)
--- NOTE | 2017-11-06 18:57 | PN ---
Subjective Date of Service: 11/06/17 Interval History: Pt seen and examined. Meds and labs reviewed. ROS: Denied ANDRADE/dizziness, F/C, N/V, CP, SOB, increased cough, sputum production , abd pain, diarrhea, constipation, dysuria, myalgias, arthralgias, throat pain , and new skin lesions. The rest of the 14 point ROS are unremarkable. PHYSICAL EXAM: GEN APPEARANCE: Awake, not in acute distress HEENT: NC/AT, PERRLA, moist oral mucosa, (-) throat erythema NECK: Soft, supple, (-) cervical LAD, (-)JVD HEART: S1S2 WNL, RRR, No MRG CHEST: CTA, BL, GAE, No W/R/R ABD: Soft, ND/NT, NABS 4x Q EXT: No C/C/E SKIN: Warm to touch PSYCH: No active psychosis, hallucinations, depression, SI/HI Objective Active Medications: Acetaminophen (Tylenol Tab*) 650 mg PO Q4H PRN PRN Reason: FEVER/PAIN Last Admin: 11/06/17 15:20 Dose: 650 mg Al Hydrox/Mg Hydrox/Simethicone (Maalox Plus*) 30 ml PO Q6H PRN PRN Reason: INDIGESTION Aspirin (Aspirin Ec Tab*) 81 mg PO DAILY [facility] Last Admin: 11/06/17 10:27 Dose: 81 mg Cetirizine HCl (Zyrtec*) 10 mg PO DAILY [facility] Last Admin: 11/06/17 10:27 Dose: 10 mg Cholecalciferol (Vitamin D Tab*) 1,000 units PO DAILY [facility] Last Admin: 11/06/17 10:27 Dose: 1,000 units Coenzyme Q10 (Coenzyme Q10 (Nf)) 1 cap PO DAILY [facility] Last Admin: 11/06/17 10:28 Dose: Not Given Digoxin (Lanoxin Tab*) 0.25 mg PO MoTuWeThFr@0900 [facility] Diltiazem HCl (Cardizem Cd Cap*) 240 mg PO DAILY [facility] Last Admin: 11/06/17 10:27 Dose: 240 mg Heparin Sodium (Porcine) (Heparin Vial(*)) 5,000 units SUBCUT Q12HR [facility] Iohexol (Omnipaque 350 (Contrast)-) 100 ml IV ONCE [facility] Stop: 11/08/17 08:37 Last Admin: 11/06/17 09:31 Dose: 100 ml Levothyroxine Sodium (Synthroid Tab*) 75 mcg PO DAILY [facility] Last Admin: 11/06/17 10:26 Dose: Not Given Nitroglycerin (Nitroglycerin 2% Oint*) 1 inch TOPICAL 0600,1200 [facility]; Protocol Last Admin: 11/06/17 13:34 Dose: 1 inch Ondansetron HCl (Zofran Inj*) 4 mg IV Q4H PRN PRN Reason: NAUSEA/VOMITING Rosuvastatin Calcium (Crestor (Nf)) 2.5 mg PO QPM [facility]; Protocol Last Admin: 11/06/17 17:58 Dose: 2.5 mg Spironolactone (Aldactone Tab*) 25 mg PO DAILY [facility] Last Admin: 11/06/17 10:27 Dose: 25 mg Valsartan (Diovan Tab*) 40 mg PO DAILY [facility] Last Admin: 11/06/17 10:28 Dose: 40 mg Vital Signs - 8 hr 11/06/17 11/06/17 11:43 15:33 Temperature 98.0 F 98.0 F Pulse Rate 77 74 Respiratory 12 12 Rate Blood Pressure 128/66 120/65 (mmHg) O2 Sat by Pulse 97 96 Oximetry Oxygen Devices in Use Now: None Result Diagrams: 11/06/17 14:07 11/06/17 05:53 Additional Lab and Data: Lab Results 11/05/17 11/05/17 11/05/17 Range/Units 13:01 13:01 13:01 WBC 8.6 (3.5-10.8) 10^3/ul RBC 3.41 L (4.00-5.40) 10^6/ul Hgb 10.9 L (12.0-16.0) g/dl Hct 32 L (35-47) % MCV 95 (80-97) fL MCH 32 H (27-31) pg MCHC 34 (31-36) g/dl RDW 14 (10.5-15) % Plt Count 163 (150-450) 10^3/ul MPV 9.9 (7.4-10.4) um3 Neut % (Auto) 58.5 (38-83) % Lymph % (Auto) 29.6 (25-47) % [place] % (Auto) 8.7 H (0-7) % Eos % (Auto) 2.6 (0-6) % Baso % (Auto) 0.6 (0-2) % Absolute Neuts (auto) 5.0 (1.5-7.7) 10^3/ul Absolute Lymphs (auto) 2.6 (1.0-4.8) 10^3/ul Absolute Monos (auto) 0.8 (0-0.8) 10^3/ul Absolute Eos (auto) 0.2 (0-0.6) 10^3/ul Absolute Basos (auto) 0.1 (0-0.2) 10^3/ul Absolute Nucleated RBC 0 10^3/ul Nucleated RBC % 0.1 INR (Anticoag Therapy) 0.99 (0.77-1.02) Sodium 137 (135-145) mmol/L Potassium 3.9 (3.5-5.0) mmol/L Chloride 104 (101-111) mmol/L Carbon Dioxide 23 (22-32) mmol/L Anion Gap 10 (2-11) mmol/L BUN 21 (6-24) mg/dL Creatinine 1.05 H (0.51-0.95) mg/dL Est GFR ( Amer) 61.3 (>60) Est GFR (Non-Af Amer) 50.7 (>60) BUN/Creatinine Ratio 20.0 (8-20) Glucose 98 (70-100) mg/dL Lactic Acid (0.5-2.0) mmol/L Calcium 9.4 (8.6-10.3) mg/dL Total Bilirubin 0.50 (0.2-1.0) mg/dL AST 17 (13-39) U/L ALT 11 (7-52) U/L Alkaline Phosphatase 42 (34-104) U/L Troponin I 0.01 (<0.04) ng/mL Total Protein 6.8 (6.4-8.9) g/dL Albumin 3.8 (3.2-5.2) g/dL Globulin 3.0 (2-4) g/dL Albumin/Globulin Ratio 1.3 (1-3) TSH 2.45 (0.34-5.60) mcIU/mL Digoxin 1.2 (0.8-2.0) ng/ml 06/29/18 06/29/18 Range/Units 13:01 15:40 WBC (3.5-10.8) 10^3/ul RBC (4.00-5.40) 10^6/ul Hgb (12.0-16.0) g/dl Hct (35-47) % MCV (80-97) fL MCH (27-31) pg MCHC (31-36) g/dl RDW (10.5-15) % Plt Count (150-450) 10^3/ul MPV (7.4-10.4) um3 Neut % (Auto) (38-83) % Lymph % (Auto) (25-47) % [place] % (Auto) (0-7) % Eos % (Auto) (0-6) % Baso % (Auto) (0-2) % Absolute Neuts (auto) (1.5-7.7) 10^3/ul Absolute Lymphs (auto) (1.0-4.8) 10^3/ul Absolute Monos (auto) (0-0.8) 10^3/ul Absolute Eos (auto) (0-0.6) 10^3/ul Absolute Basos (auto) (0-0.2) 10^3/ul Absolute Nucleated RBC 10^3/ul Nucleated RBC % INR (Anticoag Therapy) (0.77-1.02) Sodium (135-145) mmol/L Potassium (3.5-5.0) mmol/L Chloride (101-111) mmol/L Carbon Dioxide (22-32) mmol/L Anion Gap (2-11) mmol/L BUN (6-24) mg/dL Creatinine (0.51-0.95) mg/dL Est GFR ( Amer) (>60) Est GFR (Non-Af Amer) (>60) BUN/Creatinine Ratio (8-20) Glucose (70-100) mg/dL Lactic Acid 1.1 (0.5-2.0) mmol/L Calcium (8.6-10.3) mg/dL Total Bilirubin (0.2-1.0) mg/dL AST (13-39) U/L ALT (7-52) U/L Alkaline Phosphatase (34-104) U/L Troponin I 0.01 (<0.04) ng/mL Total Protein (6.4-8.9) g/dL Albumin (3.2-5.2) g/dL Globulin (2-4) g/dL Albumin/Globulin Ratio (1-3) TSH (0.34-5.60) mcIU/mL Digoxin (0.8-2.0) ng/ml Assess/Plan/Problems-Billing Assessment: - Patient Problems (1) Chest pain Current Visit: Yes Status: Acute Code(s): R07.9 - CHEST PAIN, UNSPECIFIED SNOMED Code(s): 53709189 Comment: -Resolved -Ruled out for dissection and PE with CTA of chest -For stress test on Wednesday given history of CAD -D/W Dr. Clemente (2) CAD (coronary artery disease) Current Visit: Yes Status: Acute Code(s): I25.10 - ATHSCL HEART DISEASE OF [place] CORONARY ARTERY W/O ANG PCTRS SNOMED Code(s): 09186156 Comment: -Continue ASA, Valsartan, Spirinolactone -Unclear why pt not on Beta-ayde at home; will defer with Dr. Clemente (3) Anemia of chronic disease Current Visit: Yes Status: Acute Code(s): D63.8 - ANEMIA IN OTHER CHRONIC DISEASES CLASSIFIED ELSEWHERE SNOMED Code(s): 544911526 Comment: -Slight drop in H&H discussed with Dr. Clemente is likely dilutional in the setting of anemia of chronic disease -All differentials dropped and I/Os today is +[phone] at the writing of this note -Repeat CBC later in the afternoon shows stable H&H with no report of bleeding -BUN/Crea ratio not suggestive of UGIB and certainly repeat CBC does not seem consistent with significant active bleed without any report of bleeding (4) Hypocalcemia Current Visit: Yes Status: Acute Code(s): E83.51 - HYPOCALCEMIA SNOMED Code(s): 3755351 Comment: -Corrected -Continue watchful waiting (5) RUQ pain Current Visit: Yes Status: Acute Code(s): R10.11 - RIGHT UPPER QUADRANT PAIN SNOMED Code(s): 194000498 Comment: -Resolved -RUQ U/S and LFTs unremarkable (6) Hypothyroidism Current Visit: Yes Status: Acute Code(s): E03.9 - HYPOTHYROIDISM, UNSPECIFIED SNOMED Code(s): 62534512 Comment: -Continue Synthroid (7) DVT prophylaxis Current Visit: Yes Status: Acute Code(s): DVO9091 - SNOMED Code(s): 439746070 Comment: -Given advanced age, will decrease frequency of Heparin SQ to q12 Status and Disposition: -For stress test on Wednesday
[2017-11-07] MEDS: Nitroglycerin 2% OINT* 1 GM PAK TOPICAL SCH ×2 (06:00→12:56)
[2017-11-07] MEDS: DIRECTIONS PO SCH (07:38)
[2017-11-07] MEDS: COENZYME Q10 ENTER STREGNTH PO SCH (07:38)
[2017-11-07] MEDS: Levothyroxine TAB* 75 MCG TAB PO SCH (07:43)
[2017-11-07] MEDS: Aspirin EC TAB* 81 MG TAB.EC PO SCH (08:18)
[2017-11-07] MEDS: Cetirizine* 10 MG TAB PO SCH (08:18)
[2017-11-07] MEDS: Spironolactone TAB* 25 MG PO SCH (08:18)
[2017-11-07] MEDS: Diltiazem CD CAP* 240 MG PO SCH (08:18)
[2017-11-07] MEDS: Valsartan TAB* 40 MG PO SCH (08:18)
[2017-11-07] MEDS: Heparin VIAL(*) 5000 UNITS/ML VIAL (FIVE THOUSAND) SUBCUT SCH ×2 (08:18→19:37)
[2017-11-07] MEDS: Cholecalciferol TAB* 1000 UNITS PO SCH (08:18)
[2017-11-07] MEDS: Acetaminophen TAB* 325 MG PO PRN (08:36)
--- NOTE | 2017-11-07 17:09 | PN ---
Subjective Date of Service: 11/07/17 Interval History: Pt seen and examined. Meds and labs reviewed. ROS: Denied ANDRADE/dizziness, F/C, N/V, CP, SOB, increased cough, sputum production , abd pain, diarrhea, constipation, dysuria, myalgias, arthralgias, throat pain , and new skin lesions. The rest of the 14 point ROS are unremarkable. PHYSICAL EXAM: GEN APPEARANCE: Awake, not in acute distress HEENT: NC/AT, PERRLA, moist oral mucosa, (-) throat erythema NECK: Soft, supple, (-) cervical LAD, (-)JVD HEART: S1S2 WNL, RRR, No MRG CHEST: CTA, BL, GAE, No W/R/R ABD: Soft, ND/NT, NABS 4x Q EXT: No C/C/E SKIN: Warm to touch PSYCH: No active psychosis, hallucinations, depression, SI/HI Objective Active Medications: Acetaminophen (Tylenol Tab*) 650 mg PO Q4H PRN PRN Reason: FEVER/PAIN Last Admin: 11/07/17 08:36 Dose: 650 mg Al Hydrox/Mg Hydrox/Simethicone (Maalox Plus*) 30 ml PO Q6H PRN PRN Reason: INDIGESTION Aspirin (Aspirin Ec Tab*) 81 mg PO DAILY [facility] Last Admin: 11/07/17 08:18 Dose: 81 mg Cetirizine HCl (Zyrtec*) 10 mg PO DAILY [facility] Last Admin: 11/07/17 08:18 Dose: 10 mg Cholecalciferol (Vitamin D Tab*) 1,000 units PO DAILY [facility] Last Admin: 11/07/17 08:18 Dose: 1,000 units Coenzyme Q10 (Coenzyme Q10 (Nf)) 1 cap PO DAILY [facility] Last Admin: 11/07/17 07:38 Dose: Not Given Digoxin (Lanoxin Tab*) 0.25 mg PO MoTuWeThFr@0900 [facility] Diltiazem HCl (Cardizem Cd Cap*) 240 mg PO DAILY [facility] Last Admin: 11/07/17 08:18 Dose: 240 mg Heparin Sodium (Porcine) (Heparin Vial(*)) 5,000 units SUBCUT Q12HR [facility] Last Admin: 11/07/17 08:18 Dose: 5,000 units Iohexol (Omnipaque 350 (Contrast)-) 100 ml IV ONCE [facility] Stop: 11/08/17 08:37 Last Admin: 11/06/17 09:31 Dose: 100 ml Levothyroxine Sodium (Synthroid Tab*) 75 mcg PO 0600 [facility] Nitroglycerin (Nitroglycerin 2% Oint*) 1 inch TOPICAL 0600,1200 [facility]; Protocol Last Admin: 11/07/17 12:56 Dose: 1 inch Ondansetron HCl (Zofran Inj*) 4 mg IV Q4H PRN PRN Reason: NAUSEA/VOMITING Pharmacy Profile Note (Nitro Patch/Oint Remove*) 1 note TOPICAL 1800 [facility]E Rosuvastatin Calcium (Crestor (Nf)) 2.5 mg PO QPM [facility]; Protocol Last Admin: 11/06/17 17:58 Dose: 2.5 mg Spironolactone (Aldactone Tab*) 25 mg PO DAILY [facility] Last Admin: 11/07/17 08:18 Dose: 25 mg Valsartan (Diovan Tab*) 40 mg PO DAILY [facility] Last Admin: 11/07/17 08:18 Dose: 40 mg Vital Signs - 8 hr 11/07/17 11/07/17 11/07/17 12:00 14:25 15:22 Temperature 98.8 F 99.7 F Pulse Rate 66 59 Respiratory 16 16 Rate Blood Pressure 109/97 125/58 102/54 (mmHg) O2 Sat by Pulse 98 97 Oximetry Oxygen Devices in Use Now: None Result Diagrams: 11/06/17 14:07 11/06/17 05:53 Additional Lab and Data: Lab Results 11/05/17 11/05/17 11/05/17 Range/Units 13:01 13:01 13:01 WBC 8.6 (3.5-10.8) 10^3/ul RBC 3.41 L (4.00-5.40) 10^6/ul Hgb 10.9 L (12.0-16.0) g/dl Hct 32 L (35-47) % MCV 95 (80-97) fL MCH 32 H (27-31) pg MCHC 34 (31-36) g/dl RDW 14 (10.5-15) % Plt Count 163 (150-450) 10^3/ul MPV 9.9 (7.4-10.4) um3 Neut % (Auto) 58.5 (38-83) % Lymph % (Auto) 29.6 (25-47) % [place] % (Auto) 8.7 H (0-7) % Eos % (Auto) 2.6 (0-6) % Baso % (Auto) 0.6 (0-2) % Absolute Neuts (auto) 5.0 (1.5-7.7) 10^3/ul Absolute Lymphs (auto) 2.6 (1.0-4.8) 10^3/ul Absolute Monos (auto) 0.8 (0-0.8) 10^3/ul Absolute Eos (auto) 0.2 (0-0.6) 10^3/ul Absolute Basos (auto) 0.1 (0-0.2) 10^3/ul Absolute Nucleated RBC 0 10^3/ul Nucleated RBC % 0.1 INR (Anticoag Therapy) 0.99 (0.77-1.02) Sodium 137 (135-145) mmol/L Potassium 3.9 (3.5-5.0) mmol/L Chloride 104 (101-111) mmol/L Carbon Dioxide 23 (22-32) mmol/L Anion Gap 10 (2-11) mmol/L BUN 21 (6-24) mg/dL Creatinine 1.05 H (0.51-0.95) mg/dL Est GFR ( Amer) 61.3 (>60) Est GFR (Non-Af Amer) 50.7 (>60) BUN/Creatinine Ratio 20.0 (8-20) Glucose 98 (70-100) mg/dL Lactic Acid (0.5-2.0) mmol/L Calcium 9.4 (8.6-10.3) mg/dL Total Bilirubin 0.50 (0.2-1.0) mg/dL AST 17 (13-39) U/L ALT 11 (7-52) U/L Alkaline Phosphatase 42 (34-104) U/L Troponin I 0.01 (<0.04) ng/mL Total Protein 6.8 (6.4-8.9) g/dL Albumin 3.8 (3.2-5.2) g/dL Globulin 3.0 (2-4) g/dL Albumin/Globulin Ratio 1.3 (1-3) TSH 2.45 (0.34-5.60) mcIU/mL Digoxin 1.2 (0.8-2.0) ng/ml 11/05/17 11/05/17 Range/Units 13:01 15:40 WBC (3.5-10.8) 10^3/ul RBC (4.00-5.40) 10^6/ul Hgb (12.0-16.0) g/dl Hct (35-47) % MCV (80-97) fL MCH (27-31) pg MCHC (31-36) g/dl RDW (10.5-15) % Plt Count (150-450) 10^3/ul MPV (7.4-10.4) um3 Neut % (Auto) (38-83) % Lymph % (Auto) (25-47) % [place] % (Auto) (0-7) % Eos % (Auto) (0-6) % Baso % (Auto) (0-2) % Absolute Neuts (auto) (1.5-7.7) 10^3/ul Absolute Lymphs (auto) (1.0-4.8) 10^3/ul Absolute Monos (auto) (0-0.8) 10^3/ul Absolute Eos (auto) (0-0.6) 10^3/ul Absolute Basos (auto) (0-0.2) 10^3/ul Absolute Nucleated RBC 10^3/ul Nucleated RBC % INR (Anticoag Therapy) (0.77-1.02) Sodium (135-145) mmol/L Potassium (3.5-5.0) mmol/L Chloride (101-111) mmol/L Carbon Dioxide (22-32) mmol/L Anion Gap (2-11) mmol/L BUN (6-24) mg/dL Creatinine (0.51-0.95) mg/dL Est GFR ( Amer) (>60) Est GFR (Non-Af Amer) (>60) BUN/Creatinine Ratio (8-20) Glucose (70-100) mg/dL Lactic Acid 1.1 (0.5-2.0) mmol/L Calcium (8.6-10.3) mg/dL Total Bilirubin (0.2-1.0) mg/dL AST (13-39) U/L ALT (7-52) U/L Alkaline Phosphatase (34-104) U/L Troponin I 0.01 (<0.04) ng/mL Total Protein (6.4-8.9) g/dL Albumin (3.2-5.2) g/dL Globulin (2-4) g/dL Albumin/Globulin Ratio (1-3) TSH (0.34-5.60) mcIU/mL Digoxin (0.8-2.0) ng/ml Assess/Plan/Problems-Billing Assessment: - Patient Problems (1) Chest pain Current Visit: Yes Status: Acute Code(s): R07.9 - CHEST PAIN, UNSPECIFIED SNOMED Code(s): 29941653 Comment: -Resolved -Ruled out for dissection and PE with CTA of chest -For stress test on tomorrow given history of CAD -D/W Dr. Clemente (2) CAD (coronary artery disease) Current Visit: Yes Status: Acute Code(s): I25.10 - ATHSCL HEART DISEASE OF [place] CORONARY ARTERY W/O ANG PCTRS SNOMED Code(s): 76162171 Comment: -Continue ASA, Valsartan, Spirinolactone -Unclear why pt not on Beta-ayde at home; will defer with Dr. Clemente (3) Anemia of chronic disease Current Visit: Yes Status: Acute Code(s): D63.8 - ANEMIA IN OTHER CHRONIC DISEASES CLASSIFIED ELSEWHERE SNOMED Code(s): 526085223 Comment: -Slight drop in H&H discussed with Dr. Clemente is likely dilutional in the setting of anemia of chronic disease; please see previous note for details -Repeat CBC in AM after lab holiday (4) Hypocalcemia Current Visit: Yes Status: Acute Code(s): E83.51 - HYPOCALCEMIA SNOMED Code(s): 1892436 Comment: -Corrected -Continue watchful waiting (5) RUQ pain Current Visit: Yes Status: Acute Code(s): R10.11 - RIGHT UPPER QUADRANT PAIN SNOMED Code(s): 410215579 Comment: -Resolved -RUQ U/S and LFTs unremarkable (6) Hypothyroidism Current Visit: Yes Status: Acute Code(s): E03.9 - HYPOTHYROIDISM, UNSPECIFIED SNOMED Code(s): 77111190 Comment: -Continue Synthroid -TSH Normal (7) DVT prophylaxis Current Visit: Yes Status: Acute Code(s): TKA8343 - SNOMED Code(s): 707072202 Comment: -Given advanced age, will decrease frequency of Heparin SQ to q12 Status and Disposition: -For stress test tomorrow
[2017-11-07] MEDS: CMC:Rosuvastatin (NF) 5 MG TAB PO SCH (17:53)
[2017-11-07] MEDS ORDERED: Nitro Patch/OINT Remove TOPICAL SCH (18:00)
--- NOTE | 2017-11-08 02:57 | PN ---
Progress Note - Progress Note Date of Service: 11/08/17 Note: Called with report of 3 loose stools with blood patient reports recent history of the same check CBC now and follow
[2017-11-08 03:52] LABS: ABS Basophils 0.1 10^3/ul (0-0.2); ABS Eosinophils 0.3 10^3/ul (0-0.6); ABS Lymphocytes 3.5 10^3/ul (1.0-4.8); ABS Monocytes 0.5 10^3/ul (0-0.8); ABS Neutrophils 3.9 10^3/ul (1.5-7.7); ABS Nucleated RBC 0 10^3/ul; Eosinophil % 3.7 % (0-6); Hematocrit 27 % (35-47); Lymphocyte % 42.2 % (25-47); Mean Corpuscular HGB Conc 34 g/dl (31-36); Mean Corpuscular Hemoglobin 32 pg (27-31); Mean Corpuscular Volume 95 fL (80-97); Mean Platelet Volume 9.3 um3 (7.4-10.4); Nucleated Red Blood Cells % 0.1; Platelet Count 170 10^3/ul (150-450); Red Cell Distribution Width 14 % (10.5-15); White Blood Count 8.2 10^3/ul (3.5-10.8)
[2017-11-08] MEDS: Levothyroxine TAB* 75 MCG TAB PO SCH (05:07)
[2017-11-08] MEDS: Nitroglycerin 2% OINT* 1 GM PAK TOPICAL SCH (06:30)
[2017-11-08 06:36] LABS: ABS Basophils 0 10^3/ul (0-0.2); ABS Eosinophils 0.2 10^3/ul (0-0.6); ABS Lymphocytes 2.3 10^3/ul (1.0-4.8); ABS Monocytes 0.4 10^3/ul (0-0.8); ABS Neutrophils 3.5 10^3/ul (1.5-7.7); ABS Nucleated RBC 0 10^3/ul; Eosinophil % 3.2 % (0-6); Hematocrit 25 % (35-47); Hemoglobin 8.4 g/dl (12.0-16.0); Lymphocyte % 35.6 % (25-47); Mean Corpuscular HGB Conc 34 g/dl (31-36); Mean Corpuscular Hemoglobin 32 pg (27-31); Mean Corpuscular Volume 95 fL (80-97); Mean Platelet Volume 9.6 um3 (7.4-10.4); Nucleated Red Blood Cells % 0; Platelet Count 147 10^3/ul (150-450); Red Blood Count 2.59 10^6/ul (4.00-5.40); Red Cell Distribution Width 14 % (10.5-15); White Blood Count 6.4 10^3/ul (3.5-10.8)
[2017-11-08 07:08] LABS: EGFR Non-African American 56.2 (>60)
[2017-11-08] MEDS ORDERED: Regadenoson* 0.4 MG/5 ML SYRINGE ONE (07:33)
[2017-11-08] MEDS: Diltiazem CD CAP* 240 MG PO SCH (08:22)
[2017-11-08] MEDS: Valsartan TAB* 40 MG PO SCH (08:22)
[2017-11-08] MEDS: Aspirin EC TAB* 81 MG TAB.EC PO SCH (08:22)
[2017-11-08] MEDS: Cholecalciferol TAB* 1000 UNITS PO SCH (08:23)
[2017-11-08] MEDS: Cetirizine* 10 MG TAB PO SCH (08:23)
[2017-11-08] MEDS: Spironolactone TAB* 25 MG PO SCH (08:24)
[2017-11-08] MEDS: Heparin VIAL(*) 5000 UNITS/ML VIAL (FIVE THOUSAND) SUBCUT SCH (08:26)
[2017-11-08] MEDS: COENZYME Q10 ENTER STREGNTH PO SCH (08:55)
[2017-11-08] MEDS: DIRECTIONS PO SCH (08:55)
[2017-11-08] MEDS: Digoxin TAB* 0.25 MG PO SCH (10:13)
--- NOTE | 2017-11-08 10:32 | RAD ---
Edited for charges. HISTORY: chest pain on presentation COMPARISONS: September 02, 2012 TECHNIQUE: A 1 day stress/rest myocardial perfusion study was performed, with pharmacologic stress. The stress portion was monitored by Dr. Milton. Gated SPECT imaging was performed, with CT-based attenuation correction DOSE: Stress: Technetium 99m tetrofosmin, 25.4 millicuries, injected at 9:11 AM on November 08, 2017 Rest: Technetium 99m tetrofosmin, 1029 millicuries, injected at 6:28 AM on November 08, 2017 Pharmacologic agent: Lexiscan FINDINGS: CARDIAC MONITORING: EKG evidence of ischemia with stress. EF: 86% TID: 1.06 MOTION: Normal motion, with normal wall thickening. PERFUSION: There are no fixed or reversible perfusion defects. OTHER: None IMPRESSION: NO FIXED OR REVERSIBLE PERFUSION DEFECTS. ASSESSMENT: LOW RISK. Based on imaging criteria from ACC/AHA 2002. Guideline Update for the Management of Patient's with Chronic Stable Angina, table 23. Noninvasive Risk Stratification. CPT II Codes: 9976A1Z MTDD
[2017-11-08] MEDS: Omeprazole CAP* 20 MG PO SCH ×2 (11:57→20:35)
[2017-11-08 17:04] LABS: Hematocrit 26 % (35-47); Hemoglobin 8.6 g/dl (12.0-16.0)
[2017-11-08] MEDS: CMC:Rosuvastatin (NF) 5 MG TAB PO SCH (17:33)
--- NOTE | 2017-11-08 17:34 | PN ---
Subjective Date of Service: 11/08/17 Interval History: Patient underwent a stress test without chest pain which was normal. Patient has been having increased fatigue for several weeks with bloody BMs since last week . No known anemia. Denies CP, SOB, F/C, Occasional lower abdominal pain, N/V, dizziness, palpitations or other pain. Continued bloody diarrhea but decreasing. Family History: Unchanged from Admission Social History: Unchanged from Admission Past Medical History: Unchanged from Admission Objective Active Medications: Acetaminophen (Tylenol Tab*) 650 mg PO Q4H PRN PRN Reason: FEVER/PAIN Last Admin: 11/07/17 08:36 Dose: 650 mg Al Hydrox/Mg Hydrox/Simethicone (Maalox Plus*) 30 ml PO Q6H PRN PRN Reason: INDIGESTION Cetirizine HCl (Zyrtec*) 10 mg PO DAILY [facility] Last Admin: 11/08/17 08:23 Dose: 10 mg Cholecalciferol (Vitamin D Tab*) 1,000 units PO DAILY [facility] Last Admin: 11/08/17 08:23 Dose: 1,000 units Coenzyme Q10 (Coenzyme Q10 (Nf)) 1 cap PO DAILY [facility] Last Admin: 11/08/17 08:55 Dose: Not Given Digoxin (Lanoxin Tab*) 0.25 mg PO [id number]@0900 [facility] Last Admin: 11/08/17 10:13 Dose: 0.25 mg Heparin Sodium (Porcine) (Heparin Vial(*)) 5,000 units SUBCUT Q12HR [facility] Last Admin: 11/08/17 08:26 Dose: 5,000 units Levothyroxine Sodium (Synthroid Tab*) 75 mcg PO 0600 [facility] Last Admin: 11/08/17 05:07 Dose: 75 mcg Omeprazole (Prilosec Cap*) 20 mg PO BID [facility] Last Admin: 11/08/17 11:57 Dose: 20 mg Ondansetron HCl (Zofran Inj*) 4 mg IV Q4H PRN PRN Reason: NAUSEA/VOMITING Rosuvastatin Calcium (Crestor (Nf)) 2.5 mg PO QPM [facility]; Protocol Last Admin: 11/07/17 17:53 Dose: 2.5 mg Spironolactone (Aldactone Tab*) 25 mg PO DAILY [facility] Last Admin: 11/08/17 08:24 Dose: 25 mg Valsartan (Diovan Tab*) 40 mg PO DAILY [facility] Last Admin: 11/08/17 08:22 Dose: 40 mg Vital Signs - 8 hr 11/08/17 11/08/17 11/08/17 10:13 11:07 11:44 Temperature 98.4 F Pulse Rate 66 66 71 Respiratory 16 Rate Blood Pressure 101/61 147/52 (mmHg) O2 Sat by Pulse 100 Oximetry 11/08/17 15:42 Temperature 97.7 F Pulse Rate 75 Respiratory 16 Rate Blood Pressure 129/53 (mmHg) O2 Sat by Pulse 100 Oximetry Oxygen Devices in Use Now: None Appearance: Patient is a pale 77yo female who appears stated age and is sitting in the bed in NAD. Eyes: No Scleral Icterus, PERRLA Ears/Nose/Mouth/Throat: NL Teeth, Lips, Gums, Clear Oropharnyx, Mucous Membranes Moist Neck: NL Appearance and Movements; NL JVP, Trachea Midline Respiratory: Symmetrical Chest Expansion and Respiratory Effort, Clear to Auscultation Cardiovascular: NL Sounds; No Murmurs; No JVD, RRR, No Edema Abdominal: NL Sounds; No Tenderness; No Distention, No Hepatosplenomegaly, - - Rectal exam shows no hemorrhoids, fissures, mass, or red blood. Loose maroon stool in rectal vault. Lymphatic: No Cervical Adenopathy Extremities: No Edema, No Clubbing, Cyanosis Skin: No Rash or Ulcers, No Nodules or Sclerosis Neurological: Alert and Oriented x 3, NL Sensation, NL Muscle Strength and Tone , - - CN II-XII intact. Result Diagrams: 11/08/17 16:59 11/08/17 06:16 Additional Lab and Data: Lab Results 11/05/17 11/05/17 11/05/17 Range/Units 13:01 13:01 13:01 WBC 8.6 (3.5-10.8) 10^3/ul RBC 3.41 L (4.00-5.40) 10^6/ul Hgb 10.9 L (12.0-16.0) g/dl Hct 32 L (35-47) % MCV 95 (80-97) fL MCH 32 H (27-31) pg MCHC 34 (31-36) g/dl RDW 14 (10.5-15) % Plt Count 163 (150-450) 10^3/ul MPV 9.9 (7.4-10.4) um3 Neut % (Auto) 58.5 (38-83) % Lymph % (Auto) 29.6 (25-47) % Mingo % (Auto) 8.7 H (0-7) % Eos % (Auto) 2.6 (0-6) % Baso % (Auto) 0.6 (0-2) % Absolute Neuts (auto) 5.0 (1.5-7.7) 10^3/ul Absolute Lymphs (auto) 2.6 (1.0-4.8) 10^3/ul Absolute Monos (auto) 0.8 (0-0.8) 10^3/ul Absolute Eos (auto) 0.2 (0-0.6) 10^3/ul Absolute Basos (auto) 0.1 (0-0.2) 10^3/ul Absolute Nucleated RBC 0 10^3/ul Nucleated RBC % 0.1 INR (Anticoag Therapy) 0.99 (0.77-1.02) Sodium 137 (135-145) mmol/L Potassium 3.9 (3.5-5.0) mmol/L Chloride 104 (101-111) mmol/L Carbon Dioxide 23 (22-32) mmol/L Anion Gap 10 (2-11) mmol/L BUN 21 (6-24) mg/dL Creatinine 1.05 H (0.51-0.95) mg/dL Est GFR ( Amer) 61.3 (>60) Est GFR (Non-Af Amer) 50.7 (>60) BUN/Creatinine Ratio 20.0 (8-20) Glucose 98 (70-100) mg/dL Lactic Acid (0.5-2.0) mmol/L Calcium 9.4 (8.6-10.3) mg/dL Total Bilirubin 0.50 (0.2-1.0) mg/dL AST 17 (13-39) U/L ALT 11 (7-52) U/L Alkaline Phosphatase 42 (34-104) U/L Troponin I 0.01 (<0.04) ng/mL Total Protein 6.8 (6.4-8.9) g/dL Albumin 3.8 (3.2-5.2) g/dL Globulin 3.0 (2-4) g/dL Albumin/Globulin Ratio 1.3 (1-3) TSH 2.45 (0.34-5.60) mcIU/mL Digoxin 1.2 (0.8-2.0) ng/ml 11/05/17 11/05/17 Range/Units 13:01 15:40 WBC (3.5-10.8) 10^3/ul RBC (4.00-5.40) 10^6/ul Hgb (12.0-16.0) g/dl Hct (35-47) % MCV (80-97) fL MCH (27-31) pg MCHC (31-36) g/dl RDW (10.5-15) % Plt Count (150-450) 10^3/ul MPV (7.4-10.4) um3 Neut % (Auto) (38-83) % Lymph % (Auto) (25-47) % Mingo % (Auto) (0-7) % Eos % (Auto) (0-6) % Baso % (Auto) (0-2) % Absolute Neuts (auto) (1.5-7.7) 10^3/ul Absolute Lymphs (auto) (1.0-4.8) 10^3/ul Absolute Monos (auto) (0-0.8) 10^3/ul Absolute Eos (auto) (0-0.6) 10^3/ul Absolute Basos (auto) (0-0.2) 10^3/ul Absolute Nucleated RBC 10^3/ul Nucleated RBC % INR (Anticoag Therapy) (0.77-1.02) Sodium (135-145) mmol/L Potassium (3.5-5.0) mmol/L Chloride (101-111) mmol/L Carbon Dioxide (22-32) mmol/L Anion Gap (2-11) mmol/L BUN (6-24) mg/dL Creatinine (0.51-0.95) mg/dL Est GFR ( Amer) (>60) Est GFR (Non-Af Amer) (>60) BUN/Creatinine Ratio (8-20) Glucose (70-100) mg/dL Lactic Acid 1.1 (0.5-2.0) mmol/L Calcium (8.6-10.3) mg/dL Total Bilirubin (0.2-1.0) mg/dL AST (13-39) U/L ALT (7-52) U/L Alkaline Phosphatase (34-104) U/L Troponin I 0.01 (<0.04) ng/mL Total Protein (6.4-8.9) g/dL Albumin (3.2-5.2) g/dL Globulin (2-4) g/dL Albumin/Globulin Ratio (1-3) TSH (0.34-5.60) mcIU/mL Digoxin (0.8-2.0) ng/ml Microbiology and Other Data: Microbiology 11/08/17 12:00 Stool Occult Blood (RAOUL) - Final Stool Assess/Plan/Problems-Billing Assessment: Patient is a 78yo female with a PMH of CAD, HTN, SVT here with chest pain radiating to her back with a negative stress test who is having BRBPR and anemia and is currently being treated conservatively for lower GI bleed. - Patient Problems (1) GI bleed Current Visit: Yes Status: Acute Code(s): K92.2 - GASTROINTESTINAL HEMORRHAGE, UNSPECIFIED SNOMED Code(s): 08876663 Comment: Painless BRBPR. Hemoglobin 8.6 in evening check, baseline around 13.1. Recent ASA use for shoulder pain. Baby aspirin held due to bleeding. Trending up, bleeding slowing down. Likely Diverticular source. Distant colonoscopy with recent multiple negative Cologard testing. Outpatient Colonoscopy if no intervention needed in hospital. PPI and Hold anticoagulants. (2) CAD (coronary artery disease) Current Visit: Yes Status: Acute Code(s): I25.10 - ATHSCL HEART DISEASE OF [place] CORONARY ARTERY W/O ANG PCTRS SNOMED Code(s): 39575715 Comment: Continue Valsartan, Spirinolactone Low risk stress test. History of Stent. ASA held in setting of GI bleed. Discussed with Dr. Clemente. (3) SVT (supraventricular tachycardia) Current Visit: Yes Status: Acute Code(s): I47.1 - SUPRAVENTRICULAR TACHYCARDIA SNOMED Code(s): 7478341 Comment: No recurrences. Unknown etiology. (4) Chest pain Current Visit: Yes Status: Acute Code(s): R07.9 - CHEST PAIN, UNSPECIFIED SNOMED Code(s): 64450987 Comment: Resolved, Low risk stress test. Possibly due to strain from anemia. (5) Hypothyroidism Current Visit: Yes Status: Acute Code(s): E03.9 - HYPOTHYROIDISM, UNSPECIFIED SNOMED Code(s): 39874922 Comment: Continue Synthroid TSH Normal (6) DVT prophylaxis Current Visit: Yes Status: Acute Code(s): ZOE6773 - SNOMED Code(s): 387928398 Comment: SCDs in setting of GI bleed. Status and Disposition: Inpatient for GI bleed.
--- NOTE | 2017-11-08 22:54 | PN ---
Progress Note - Progress Note Date of Service: 11/08/17 Note: Called with decreased BP Start NS 150cc/hr for 1 liter Follow
[2017-11-08] MEDS ORDERED: NS 0.9% 1000 ML* 1,000 ML IV SCH (23:00)
[2017-11-09] MEDS: Levothyroxine TAB* 75 MCG TAB PO SCH (06:14)
[2017-11-09 06:15] LABS: ABS Basophils 0 10^3/ul (0-0.2); ABS Eosinophils 0.2 10^3/ul (0-0.6); ABS Lymphocytes 2.3 10^3/ul (1.0-4.8); ABS Monocytes 0.5 10^3/ul (0-0.8); ABS Neutrophils 3.7 10^3/ul (1.5-7.7); ABS Nucleated RBC 0 10^3/ul; Eosinophil % 3.6 % (0-6); Hematocrit 19 % (35-47); Hemoglobin 6.6 g/dl (12.0-16.0); Lymphocyte % 34.2 % (25-47); Mean Corpuscular HGB Conc 34 g/dl (31-36); Mean Corpuscular Hemoglobin 33 pg (27-31); Mean Corpuscular Volume 96 fL (80-97); Mean Platelet Volume 9.8 um3 (7.4-10.4); Nucleated Red Blood Cells % 0.1; Platelet Count 134 10^3/ul (150-450); Red Blood Count 2.02 10^6/ul (4.00-5.40); Red Cell Distribution Width 14 % (10.5-15); White Blood Count 6.7 10^3/ul (3.5-10.8)
[2017-11-09] MEDS: Omeprazole CAP* 20 MG PO SCH (08:16)
[2017-11-09] MEDS: Cholecalciferol TAB* 1000 UNITS PO SCH (08:16)
[2017-11-09] MEDS: Cetirizine* 10 MG TAB PO SCH (08:17)
[2017-11-09] MEDS: COENZYME Q10 ENTER STREGNTH PO SCH (08:18)
[2017-11-09] MEDS: DIRECTIONS PO SCH (08:18)
[2017-11-09] MEDS: Digoxin TAB* 0.25 MG PO SCH (08:23)
[2017-11-09] MEDS ORDERED: Diltiazem CD CAP* 240 MG PO SCH (09:00)
[2017-11-09] MEDS ORDERED: Magnesium Sulfate 2 GM IV* 2 GM/50 ML BAG IVPB ONE (09:31)
[2017-11-09] MEDS ORDERED: Iodixanol* (CONTRAST) 320 MG/ML 100 ML SDV IV ONE ×2 (12:40→13:31)
[2017-11-09] MEDS ORDERED: Midazolam* 1 MG/ML 10 ML VIAL (10 MG) ONE (12:43)
[2017-11-09] MEDS ORDERED: fentaNYL* 50 MCG/ML 2 ML VIAL (100 MCG VIAL) ONE (12:43)
[2017-11-09 15:43] VITALS: BP 124/48
--- NOTE | 2017-11-09 16:46 | TRS ---
CC: Dr. Willy Treviño, [facility]; Dr. Nadya Martinez* DATE OF ADMISSION: 11/05/2017. DATE OF TRANSFER: 11/09/2017. PRIMARY CARE PHYSICIAN: Dr. Nadya Martinez. MY ATTENDING PHYSICIAN WHILE IN THE HOSPITAL: Dr. Tracie Gómez* (dictated by IZAIAH Knowles). ACCEPTING PHYSICIAN: Dr. Willy Treviño, [facility]. PRIMARY DISCHARGE DIAGNOSES: 1. Acute GI bleed. 2. Chest pain. SECONDARY DISCHARGE DIAGNOSES: 1. History of coronary artery disease, status post stenting. 2. Hypertension. 3. Dyslipidemia. 4. Abdominal aortic aneurysm, 3.6 cm. 5. GERD. 6. Hypothyroidism. 7. Paroxysmal SVT. 8. Status post left carotid endarterectomy. 9. Renal artery stenosis. STUDIES DONE WHILE IN THE HOSPITAL: 1. Chest x-ray, 11/05/2017, read as: No evidence for acute intrathoracic disease. Rarefaction of the interstitial markings suspicious for potential chronic obstructive pulmonary disease. 2. Electrocardiogram, 11/05/2017, showed normal sinus rhythm, ST segment depression in V2, V3, V4, V5, and V6, approximately 1 mV, as well as 1, 2, and aVL, normal axis, rate of 96, QTC 431, ST depressions were not present on previous examination. 3. Repeat EKG showed resolution of ST segment depressions, no other changes. 4. Repeat EKG from 11/06/2017 showed no significant changes from previous exam. 5. Transthoracic echocardiogram from 11/05/2017, read as: Mild concentric left ventricular hypertrophy is observed. Sigmoid septum up to 16 mm. The left ventricle appears hyperdynamic. The estimated ejection fraction is greater than 65%. Abnormal left ventricular diastolic filling is observed, consistent with impaired relaxation. The aortic valve leaflets are mildly thickened. There is trace to mild mitral regurgitation. There is trace to mild tricuspid regurgitation. Similar to 09/01/2017. 6. Chest/thorax CT from 11/05/2017, read as: Negative for dissection of the thoracic aorta. Fusiform aneurysm of the distal descending thoracic aorta measuring up to 3.2 cm in diameter, increased from 3.0 cm previously. Significant atherosclerotic plaque with progression compared with the 2013 exam. Foci of penetrating ulcers at the distal descending thoracic aorta without evidence for intramural hematoma or periarterial hematoma. Hemodynamic significant left renal artery stenosis with interval worsening. No evidence for pulmonary embolism. 7. Gallbladder ultrasound from 11/05/2017, read as: No evidence of cholelithiasis or biliary duct dilatation is noted. 8. Abdomen and pelvis CTA from 11/06/2017, read as: There is ectasia of the descending thoracic aorta at the inlet measuring up to 3.1 cm in greatest dimension. There is peripheral soft plaque which appears irregular in the distal thoracic and proximal abdominal aorta. No evidence of retroperitoneal hematoma is noted. There are no other masses or fluid collections identified. Patient is status post right hip replacement. 9. Nuclear medicine scan from 11/08/2017, read as: Low risk. No fixed or reversible perfusion defects. ER 86 percent. Normal motion, normal wall thickening. MEDICATIONS AT TRANSFER: 1. CoQ10 100 mg p.o. daily. 2. Vitamin D 1,000 units p.o. daily. 3. Spironolactone 25 mg p.o. daily. 4. Levothyroxine 75 mcg p.o. daily. 5. Diltiazem 240 mg p.o. daily. 6. Rosuvastatin 2.5 mg p.o. q.p.m. 7. Loratadine 10 mg p.o. daily. 8. Digoxin 0.25 mg p.o. 5 times a week. 9. Tylenol 650 mg p.o. q.4 hours as needed. 10. Maalox 30 ml p.o. q.6 hours as needed. 11. Omeprazole 20 mg p.o. b.i.d. 12. Zofran 4 mg IV q.4 hours as needed. Medications discontinued at transfer: 1. Valsartan 40 mg p.o. b.i.d. 2. Aspirin 81 mg p.o. daily. 3. Spironolactone 25 mg p.o. daily. HOSPITAL COURSE: This is a brief summary of the patient's presentation, for more details please see the history and physical from Sybil Alamo NP on . In brief, the patient is a 77-year-old female with a past medical history stated above who presented to the emergency department after feeling terrible. She had left-sided chest pain radiating to her left shoulder blade. On Wednesday night, November 03, she had a salad that she thought might have been spoiled and developed diarrhea on morning. She had five episodes of diarrhea in the morning. She did not feel well after this. She had dry heaves , broke out into a sweat. Her blood pressure was low with her systolic being 88. On , she has shortness of breath with walking and felt dizzy and needed to rest, much decreased interval to her normal ability. With her previous episode of diarrhea, she had several episodes which were mixed with bright red blood which she attributed to hemorrhoidal bleeding. The patient stopped at her director of teaching and learning's office, Dr. Salazar, and her blood pressure was found to be very high with her systolic blood pressure around 220 per patient report. The patient has intermittent right upper quadrant pain and intermittent lower abdominal pain. The patient's blood pressure was brought down with Lopressor IV. The patient was continued on her home medications of Aldactone, Diltiazem, Losartan, Digoxin, and aspirin. The patient was seen in consultation by Dr. Angel Salazar who believed that her chest pain might have been ischemic in origin. The patient was started on a nitro patch. The patient's chest pain resolved with administration of the nitro patch. The patient was continued on the nitro patch during this stay and had no repeat chest pain. The patient was kept in the hospital over the weekend for a stress test on Wednesday. The patient had no episodes of bright red blood per rectum. On her first day in the hospital, the patient's hemoglobin decreased from initially 10.9 to 9.2 with a repeat of 9.4. The patient had no events from November 06 to November 07, including no bright red blood per rectum. The patient had bright red blood per rectum again in the draft roller picker of 11/08/2017. The patient's hemoglobin dropped from 9.0 to 8.4 on 06/2017. A repeat in the evening showed an increase to 8.6. The patient was asymptomatic at this time. The patient had a nuclear medicine stress test which did not provoke chest pain and was read as above. One 11/08/2017, the patient continued to have small amounts of blood in her stool, but no diarrhea. The patient had had recent Cologuard testing with previous negative colonoscopy. The patient's aspirin and Heparin were held. The patient was monitored on the morning of November 09. The patient overnight from November 08 to November 09 had hypotension with her blood pressure dropping as low as 88/47 on the evening of 11/08/2017. The patient responded to fluid and the patient's blood pressure normalized. The patient's hemoglobin in the morning of 2017 was 6.6. The patient was started on Omeprazole b.i.d. GI consult was obtained with Dr. Jitendra Lopez. The patient started to have increasing amounts of bright red blood per rectum, likely of diverticular origin and had a flexible sigmoidoscopy which showed blood between the hepatic flexure and the rectum. The patient was hypotensive with systolics in the 70s after she was initially sedated for her sigmoidoscopy. This resolved with fluid administration. In the afternoon of 11/09/2017, the patient was stable, but necessitated transfer to a higher level of care due to the possible need for emergent interventional radiology or surgical intervention for her lower GI bleed. This was discussed with Dr. Willy Treviño of the hospitalists at [facility] who accepted the patient for transfer. PHYSICAL EXAMINATION ON THE DATE OF DISCHARGE: General: The patient is a 77- year-old, pale female who appears stated age and sitting comfortably in the bed in no acute distress. Vital Signs at the time of discharge: Temperature 97.8, pulse rate 66, respiratory rate 16, oxygen saturation 100 percent on room air, blood pressure 102/46. HEENT: Head normocephalic, atraumatic. Sclerae anicteric. No conjunctival injection. Nasal mucosa moist. Oral mucosa moist. No pharyngeal erythema, discharge, or exudate. Oral mucosa pale. Neck: Supple , nontender. No lymphadenopathy. No carotid bruit auscultated. No JVD. Cardiac: Regular rate and rhythm. No clicks, murmurs, gallops, and rubs. Pulses 2+ in bilateral dorsalis pedis, posterior tibialis, and radial areas. Respiratory: Clear to auscultation bilaterally. No wheezes, rales, or rhonchi. Good air exchange bilaterally. Abdomen: Soft, nontender, nondistended with bowel sounds present. Normoactive in all four quadrants. No hepatosplenomegaly. No abdominal bruits auscultated. No hepatojugular reflux. Genitourinary: No suprapubic or CVA tenderness. Skin: Clean, dry, intact. No rash. Neuro: Cranial nerves II through XII intact. No focal deficits. Alert and oriented times three. Psychiatric: Very pleasant and cooperative. LABORATORY DATA ON THE DAY OF DISCHARGE: White blood cell count 6.7, hemoglobin 6.6, hematocrit 19, MCV 96, MCH 33, platelet count 134; sodium 141, potassium 4.1, chloride 112, carbon dioxide 24, anion gap 5, BUN 18, creatinine 0.92, glucose 103, calcium 7.7, magnesium 1.8. DISCHARGE PLAN: The patient will be transferred to [facility]. The patient is currently being transfused her third unit of four ordered. The patient will continue to receive transfusion while on transport. The patient has bleeding of lower GI origin, likely diverticular. This will likely self- resolve; however, gastroenterology and general surgery, as well as possible interventional radiology should be available. Of note, the patient had known atherosclerotic vascular disease in her femoral arteries which may make interventional radiology intervention difficult. Would recommend obtaining records from [facility] for records if intervention is planned. A CTA of the abdomen to further characterize bleeding was deferred due to possible need for it to be repeated at [facility]. Tagged RBC scan unable to be performed due until the morning of due to recent nuclear stress test. The patient is currently on a clear liquid diet. The patient should follow-up with her primary care provider within one week from discharge. The patient should be monitored closely for decompensation. The patient has been discussed with the director of teaching and learning prescription eyeglass maker, Dr. Demond Clemente, and he is in agreement with plan. The patient should engage in activity as tolerated. TIME SPENT: Approximately 60 minutes were spent on this discharge, 30 of which were spent [id number] with the patient obtaining a history and physical and discussing treatment plan. IZAIAH KNOWLES [id number]/[facility] #: [id number] RONNA
--- NOTE | 2017-11-09 16:54 | CONS ---
GASTROENTEROLOGY CONSULT: DATE: 11/09/17 CONSULTING PHYSICIANS: Dr. Nadya Martinez, Dr. Angel Salazar.* REASON FOR CONSULT: Rectal bleeding over the last 5 days. HISTORY OF PRESENT ILLNESS: This 77-year-old woman says she awakened early morning, 11/04/17, with an explosive stool that had lots of blood come out. She had a second and then a third passage, each seeming voluminous to her. Later in the morning, she was sweaty and had a feeling of "knots in my chest." She also had some dry heaves and was dizzy. During the day, her blood pressure was 88 systolic and she consulted with cardiology office and rested. She had no more stools that day. Overnight, she was okay, but then in the manufacturing quality manager hours, again she had more loose bloody stools and was dizzy. She again complained of a knot in the chest. She was sent to the emergency room by ambulance and was admitted. She did have a span of 18 or 24 hours where she did not have any bloody stools. As an inpatient, she had a cardiac workup and her nuclear stress test was negative. There were no acute cardiac findings. She reports she has continued to have some intermittent bloody stools. Her hemoglobin, which had been 13.9 on 05/05/17 and 10.9 on admission, drifted down to 8.4 the morning of 11/08/17. However, it was slightly up the next draw 12 hours later. She had a bloody stool around 4 a.m. on 11/09/17, but none in the next 6 hours. She says the pattern has been in the manufacturing quality manager hours to have a crescencio of loose bloody stools. This morning, her hemoglobin was 6.6. She has not been transfused. She states she has had a colonoscopy many years ago in the [facility] system. She had a flexible sigmoidoscopy with Dr. Bowden in 1997. Intolerant of the oral preps. After that, she elected to just have stool test done, results of which are not immediately available. PAST MEDICAL HISTORY: 1. Left carotid endarterectomy - she follows with Dr. Emery in [place]. 2. Coronary disease, status post LAD stent, 2003. 3. Right total hip replacement, January 2015, and she was transfused after that. 4. Hiatal hernia repair, 2012, at [facility] in [place]. 5. Tonsillectomy. 6. Abdominal aortic aneurysm - being followed, 3.6 cm in 2018. 7. Hypothyroidism. 8. Episodic paroxysmal SVT. MEDICATIONS: As an outpatient of GI relevance: Aspirin 81; diltiazem 240; digoxin 0.25 five days a week; Crestor 2.5. FAMILY HISTORY: Her mother had coronary disease and father with CVA. SOCIAL HISTORY: She is , her dying of malignancy last year. 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 REVIEW OF SYSTEMS: No history of seizures, CVA, TB, hemoptysis, hepatitis, colon polyps, renal stones, recent falls or fractures. PHYSICAL EXAM: She is a slightly pale woman, lying in bed, conversing with her [id number], in no acute distress. She is somewhat pale, but completely dressed and prepared for the day and alert and preferring to talk about social interactions that are relevant to her. HEENT exam is unremarkable. She has no adenopathy. Her lungs are clear. Heart sounds are regular. The abdomen is symmetric with increased bowel sounds, soft, and without focal tenderness. Rectal shows bloody secretions. Extremities show no edema. Neurologic is nonfocal. DIAGNOSTIC STUDIES/LAB DATA: This morning, hemoglobin 6.6, hematocrit 19, platelets 134. BUN 18 and values since admission have been uniformly 21 or below, unchanged from a long established baseline. Troponins have been 0.01 x3. LFTs normal. Ferritin 102, saturation 19%, iron 58. Creatinine 0.92. TSH 2.45. Digoxin 1.2. Imaging - CTA showed her vascular ectasia of the abdominal aorta with soft plaque. There is no focal lesion in organs. IMPRESSION: This 77-year-old woman has had off-again, on-again lower gastrointestinal bleed. There is no sign of an upper gastrointestinal component and she does not have any peptic symptoms to begin with. When she was first seen mid morning, it was possibly bleeding had diminished. A couple of hours later, she accelerated to pass a crescencio of loose bloody stools and an unprepped colonoscopy is planned as paradoxically the more voluminous bleed sometimes self- prepare the colon for diagnostic findings to be present. [id number]/[facility] #: [id number] RONNA
--- NOTE | 2017-11-09 19:47 | PRO ---
DATE: 11/09/17 REFERRING PHYSICIAN: Dr. Martinez.* PROCEDURE: Colonoscopy to the ileocecal level. INDICATION: This 77-year-old woman noted rectal bleeding on the morning of . It has occurred sporadically since then chiefly in the morning as a crescencio of loose frankly bloody stools. Her BUN has not gone up. ENDOSCOPIST: Dr. Lopez. MEDICATIONS: Midazolam 6, fentanyl 75. FINDINGS: She is a slightly pale, older woman, not complaining of any abdominal pain. She has active bowel sounds. The abdomen is soft. There is no focal tenderness. Rectal is normal. Initial views show normal rectal mucosa with a scant amount of bloody mucus covering may be 5% of mucosa. Sigmoid is rather narrow and convoluted with fair amount of maneuvering required to get around. There is 2+ diverticulosis in the sigmoid and the extent of bloody secretions increases. It coats the thomas increasingly as the estimated descending is entered. Near the estimated splenic, there is more freshness to the blood in the lumen. It has scattered throughout and there is no focality to it. No acute area of blood clot or acute welling up of blood is seen. There is just a sense of freshness to the blood in the region either in the proximal descending splenic or transverse. Nursing hand checks were helpful. Abruptly in the estimated proximal transverse, normal unstained mucosa is seen and normal greenish brown stool is seen. This is clearly somewhere in the proximal transverse, possibly mid transverse. The scope was straightened and passed into the right colon where again there was no fresh blood. There was no mass. Views of cecum were minimal, but there was no blood standing there. Coming back, attempt to lavage and suction repeatedly was done to see if there could be isolated fresh adherent clot or acute welling up of blood. Nothing of that sort could be identified. There was just a sense that the fresh blood was somewhere 15 cm either side of the splenic flexure. Coming back through the sigmoid colon, the diverticula were seen clearly there ( not actually in the transverse ?) and there was no acute blood clot. The rectum appeared normal. IMPRESSION: 1. Sigmoid diverticulosis - cannot rule out involvement of other sites. 2. Gastrointestinal bleed - estimated to be from the mid sigmoid to the mid to proximal transverse. Exact site not specified. A nuclear medicine bleeding scan was considered, but nuclear cardiac stress test was done yesterday precluding that. A CT angiogram is being considered, but she will be transferred to a facility where therapeutic angiography is available and that test is left for them to consider. [id number]/[facility] #: [id number] MTDD
== END 2017-11-09 16:34 | disposition short-term general hospital (02) | DRG 378 ==
LOC: ED 12:39 → MEDTELE 17:09
PROVIDERS: ADMIT Internal Medicine; ATTEND Internal Medicine
PROC: 30233N1 Transfusion of Nonautologous Red Blood Cells into Peripheral Vein, Percutaneous Approach (ICD-10-PCS; principal; 2017-11-05)
PROC: 0DJD8ZZ Inspection of Lower Intestinal Tract, Via Natural or Artificial Opening Endoscopic (ICD-10-PCS; 2017-11-05)
DX: K57.31 Diverticulosis of large intestine without perforation or abscess with bleeding (principal); I47.1 Supraventricular tachycardia; R07.9 Chest pain, unspecified; I25.10 Atherosclerotic heart disease of native coronary artery without angina pectoris; J44.9 Chronic obstructive pulmonary disease, unspecified; I10 Essential (primary) hypertension; M19.90 Unspecified osteoarthritis, unspecified site; Z96.641 Presence of right artificial hip joint; E78.5 Hyperlipidemia, unspecified; K21.9 Gastro-esophageal reflux disease without esophagitis; E03.9 Hypothyroidism, unspecified; K64.9 Unspecified hemorrhoids; I08.1 Rheumatic disorders of both mitral and tricuspid valves; I70.1 Atherosclerosis of renal artery; D63.8 Anemia in other chronic diseases classified elsewhere; I71.4 Abdominal aortic aneurysm, without rupture; I71.2 Thoracic aortic aneurysm, without rupture; I95.9 Hypotension, unspecified; E83.51 Hypocalcemia; Z82.49 Family history of ischemic heart disease and other diseases of the circulatory system; Z85.118 Personal history of other malignant neoplasm of bronchus and lung; Z72.89 Other problems related to lifestyle; Z82.3 Family history of stroke; Z95.5 Presence of coronary angioplasty implant and graft; Z88.7 Allergy status to serum and vaccine; Z88.8 Allergy status to other drugs, medicaments and biological substances
CPT/HCPCS: 36415; 71045; 71275; 74174; 76705; 78452; 80048; 80053; 80061; 80162; 82272; 82330; 82607; 82728; 82746; 83540; 83550; 83605; 83735; 84100; 84443; 84484; 85014; 85018; 85025; 85610; 86850; 86900; 86901; 86922; 93005; 93017; 93306; 99156; 99157; 99284; A9270-GY; A9502; J1644; J2250; J2785; J3010; J3475; J3490; P9040; Q9967

== ENCOUNTER 2018-07-06 09:35 | Emergency (ER) | payer MEDICARE ==
--- OUTSIDE RECORDS SUMMARY | 2018-07-06 09:43 | XMS REPORT | Continuity of Care Document ---
:1940 External Reference #:[id number] Author Name Zac Miller Care Team Providers Name Role Phone Nadya Zavala MD Primary Care Physician Unavailable Payers Date Identification Numbers Payment Provider Subscriber Effective: 2006 Policy Number: [id number] Medicare [place] PayID: [id number] [address] [place] [address] Policy Number: [id number] [facility] [place] PayID: [id number] [address] [place] [address] Effective: 2006 Policy Number: [id number] Medicare Blue Ppo [place] Expires: 2007 PayID: [id number] [address] [address] [place] [address] Advance Directives Description No Information Available Problems Date Description Provider Status Onset: 04/21/2011 Benign essential hypertension Angel Nguyen M.D. Active Onset: 08/27/2011 Tachycardia Cathie Zavala N.P. Active Onset: 08/31/2011 Mitral valve disorder Angel Nguyen M.D. Active Onset: 08/31/2011 Chest pain Angel Nguyen M.D. Active Onset: 08/31/2011 Palpitations Angel Nguyen M.D. Active Onset: 09/02/2011 Coronary arteriosclerosis Angel Nguyen M.D. Active Onset: 12/07/2011 Paroxysmal supraventricular Angel Nguyen M.D. Active tachycardia Onset: 01/13/2012 Hyperlipidemia Cathie Zavala N.P. Active Onset: 09/07/2012 Essential hypertension Angel Nguyen M.D. Active Onset: 11/06/2017 Right upper quadrant pain Abhinav Blackburn MD Onset: 11/07/2017 Anemia of chronic disease Abhinav Blackburn MD Onset: 11/08/2017 Gastrointestinal hemorrhage IZAIAH Marino Active Onset: 11/08/2017 Hypothyroidism IZAIAH Marino Active Family History Date Family Member(s) Observation Comments Father due to Stroke () : (age 82 Father due to Heart Years) Disease Mother due to Heart () Disease : (age 77 Mother due to Vascular htn of Abdominal Years) Disease Aneurysm Siblings 2 Social History Type Date Description Comments Sex Unknown Marital Status 2017 Lives With Alone Occupation Retired ETOH Use Rarely consumes alcohol Tobacco Use Start: Unknown Patient has never smoked Recreational Drug Use Denies Drug Use Smoking Status Reviewed: 07/04/18 Patient has never smoked Exercise Type/Frequency Exercises regularly Allergies, Adverse Reactions, Alerts Date Description Reaction Status Severity Comments 05/20/2005 DT vaccination Active 12/10/2011 Albuterol heart racing Active 04/04/2012 Zetia myalgias Active Medications Medication Date Status Form Strength Qnty SIG Indications Ordering Provider Rosuvastatin Calcium 12/02 Active Tablets 5mg 90tab 1 tablet E78.00 s by mouth F. every Mauser, night M.DKalli Co Q10 Maximum 06/11 Active Capsules 200mg 200ca 1 by Angel ps mouth F. daily Jimi Nguyen Digoxin 06/19 Active Tablets 250mcg 100ta take 1 bs tablet F. by mouth Marie, 3 times M.DKalli a week wed Diovan 09/07 Active Tablets 40mg 180ta 1 by Angel bs mouth F. daily Jimi Nguyen Levothyroxine Sodium Active Tablets 75mcg 1 po qd Diltiazem CD Active Caps ER 240mg 90cap 1 po qd 24HR s F. Mauser, M.D. Vitamin D3 Active Capsules 60cap 1 po qd Unknown / s Meclizine HCL Active Tablets 12.5mg as / needed Repatha 06/21 Hx Soln 140mg/ml 6ml inject Prefill once F. - Syringe every 2 Mauser, 06/21 weeks. M.D Spironolactone 08/26 Hx Tablets 25mg 90tab 2 by s mouth F. - every Mauser, 09/19 day .D. Pravastatin Sodium 04/08 Hx Tablets 20mg 90tab 05/11 s tablet F. - by mouth user, 12/02 once M.D. every other day Atorvastatin Calcium 06/11 Hx Tablets 10mg 90tab 2 by s mouth F. - every Mauser, 04/03 day at .D. bedtime (pt held for past 3 days due to myalgias ) Atorvastatin Calcium 10/23 Hx Tablets 10mg 90tab 1 by s mouth F. - every Mauser, 06/11 day .D Atorvastatin Calcium 08/26 Hx Tablets 20mg 60tab take 2 s tablet F. - at , 10/23 bedtime .D Digoxin 02/28 Hx Tablets 125mcg 90tab Take 1 s tab by F. - mouth on , 06/19 odd days M.D. and 2 tabs by mouth on even days. Klor-Con 10 02/28 Hx Tablets 10Meq 90tab 3 tabs ER s by mouth F. - every Mauser, 03/30 day ( . last taken 4 months ago) Atorvastatin Calcium 07/07 Hx Tablets 10mg 90tab 2 by s mouth F. - every Mauser, 08/27 day M.D. Losartan Potassium 09/07 Hx Tablets 160mg 90tab 1 po qd s F. - Mauser, 09/07 M.D. Aspirin 09/07 Hx Tablets 81mg 1 po qd Ordering - Provider 12/06 Diovan 07/07 Hx Tablets 40mg 100ta 1 po qd bs Valeria Nguyen, 09/05 M.D. Lipitor 06/23 Hx Tablets 10mg 1 po qhs FKalli Nguyen, 09/05 M.D. Diovan 06/10 Hx Tablets 40mg 90tab 1 po qod s Valeria Nguyen, 07/07 M.D. Lipitor 04/04 Hx Tablets 20mg 90tab 1 po qhs s hold as Valeria Winkler, 06/23 2.1. M.D. Calan SR 12/20 Hx Tablets 120mg 30tab 1 po qd ER s Valeria Nguyen, 12/20 M.D. Calan SR 12/20 Hx Tablets 180mg 90tab 1 tab po ER s qam Valeria Nguyen, 04/04 M.D. Micro-K 12/17 Hx Capsules 10Meq 60cap 2 po qd ER s Valeria Nguyen, 01/12 M.D. Diltiazem CD 12/06 Hx Caps ER 120mg 200ca 2 po qd 24HR ps Valeria Nguyen, 12/20 M.D. Levothyroxine Sodium 12/06 Hx Tablets 75mcg 1 po qd Kalli Tonia Campbell M.D. 12/06 Atenolol 09/08 Hx Tablets 25mg 30tab 1/2 po s qd Valeria Nguyen, 12/06 M.D. Diltiazem CD 08/30 Hx Caps ER 120mg 100ca 1 po qd 24HR ps Valeria Nguyen, 12/06 M.D. Atenolol 08/30 Hx Tablets 25mg 100ta 1 po qd bs Valeria Nguyen, 09/08 M.D. Levoxyl 08/16 Hx Tablets 75mcg 1 po qd Tonia Campbell M.D. 12/06 Atenolol 08/16 Hx Tablets 25mg 60tab 1 po qd s 08/18/11 F. - and Mauser, 08/3008/19/11 M.D. and then 1 / tablets qd Digoxin 08/16 Hx Tablets 0.125mg 90tab Take 1 s tab by F. - mouth on Mause, 02/28 odd days M.D. and 2 tabs by mouth on even days. Atenolol 07/30 Hx Tablets 25mg 60tab 2 po qd s F. - Mauser, 08/16.D Atenolol 07/15 Hx Tablets 25mg 100ta 1 po qd bs F. - Mauser, 07/30.D Crestor 06/15 Hx Tablets 10mg 45tab 1 and s 05/11 F. - tablets Mauser, 04/04 po qd . Crestor 06/12 Hx Tablets 5mg 1 05/11 tablets F. - po qd Mauser, 06/15.D Atenolol 04/13 Hx Tablets 50mg 100ta 05/11 po bs qd F. - Mauser, 07/15.D Crestor 04/13 Hx Tablets 10mg 1 po qd F. - Mauser, 06/12.D Isosorbide 02/27 Hx Tablets 30mg 30tab 1 po qd Angel Mononitrate ER ER 24HR s F. - Mauser, 04/13.D. Septra DS 08/13 Hx Tablets 800-160mg 6tabs 1 po bid 599.0 Jose Angel King Tonia Campbell M.D. 12/11 Amoxicillin 08/29 Hx Capsules 250mg 30cap tid po Jose Angel King s for 10 Shannan, - tejinder M.D. 01/06 Crestor 03/08 Hx Tablets 10mg 90tab 1 po qd s Valeria Nguyen, 04/13 M.D. Hydrochlorothiazide 01/16 Hx Tablets 12.5mg 1 po qam prshadia Nguyen, 01/06 M.D. Crestor 12/31 Hx Tablets 5mg 30tab 1 po qd Jose Angel E. Tonia Connor M.D. 03/08 Nexium 12/04 Hx Capsules 40mg 90cap [address] shaun Nguyen, 04/04 M.D. Hydrochlorothiazide 11/20 Hx Tablets 12.5mg 30tab 1 po qd shaun Nguyen, 01/16 M.D. Exforge 10/15 Hx Tablets 10-160mg 90tab 1 po qd shaun Nguyen, 08/30 M.D. Crestor 10/15 Hx Tablets 20mg / po qd Valeria Nguyen, 11/20 M.D. Allopurinol 07/09 Hx Tablets 100mg 90tab 1 po qd Jose Angel E. Tonia Connor M.D. 07/09 Aspirin 07/09 Hx Chewtabs 81mg 1 po qd Jose Angel E. Tonia Campbell M.D. 09/01 Crestor 02/02 Hx Tablets 20mg 90tab 1 po qd shaun Nguyen, 10/15 M.D. Lotrel 07/05 Hx Capsules 5-10mg 90cap 1 po qd shaun Nguyen, 07/06 M.D. Exforge 06/06 Hx Tablets 5-160mg 90tab 1 po qd shaun Nguyen, 10/15 M.D. Cozaar 12/21 Hx Tablets 100mg 45tab 100 mg Jose Angel E. s in am Shannan, - and 50 M.D. 06/06 mg in Niaspan 12/09 Hx Tablets 1000mg 90tab 1 PO qd ER s pt Valeria Nguyen, 12/11 for now M.D. Avapro 09/27 Hx Tablets 150mg 30tab 1 po qd s FKalli - Mauser, 12/21 M.D. Norvasc 07/12 Hx Tablets 5mg 4tabs 1 po am 2 days F. - and 1 Mauser, 11/30 day M.D. before the stress teset and the day of stress test. Niaspan Extended 04/30 Hx Tablets 500mg 30tab 1 po qpm s F. - Mauseandrew, 12/09 M.D. Lipitor 07/27 Hx Tablets 80mg 90tab 1 po qd s FKalli Nguyen, 02/02 M.D. Cozaar 05/20 Hx Tablets 50mg 30tab 1 PO qd s FKalli Nguyen, 09/27 M.D. Atenolol 05/20 Hx Tablets 50mg 90tab 1 po qd Jose Angel E. Tonia Connor M.D. 04/13 Lipitor 05/20 Hx Tablets 20mg 30tab 1 po qd s FKalli Randall Mauser, 05/20 M.D. Zetia 05/20 Hx Tablets 10mg 90tab 1 PO qd s FKalli Nguyen, 06/01 M.D. Aspirin Enteric 05/20 Hx Tablets 81mg 1 po qD Angel F. Tonia Nguyen, 07/09 M.D. Lipitor 05/20 Hx Tablets 40mg 90tab 1 po qpm s FKalli Nguyen, 07/27 M.D. Plavix Hx Tablets 75mg 90tab 1 PO qd Angel s Valeria Nguyen, 07/07 M.D. Nexium Hx Capsules 40mg 90cap 1 PO qd Jose Angel E. /0000 Tonia Connor M.D. 01/16 Levoxyl Hx Tablets 50mcg 90tab 1 PO qd Joes Angel E. /0000 Tonia Connor M.D. 08/16 Nexium Hx Packet 40mg 90uni 1 PO qd Jose Angel E. /0000 Tonia Trinidad M.D. 06/06 Klor-Con M20 Hx Tablets 20Meq 30tab 1 po qd Angel /0000 ER s FKalli Nguyen, 04/04 M.D. Aloa Hx OTC acid Unknown 0000 buffer - daily 04/04 Diovan Hx Tablets 160mg 90tab 1 po qd Angel /0000 s hold as F. - of Marie, 06/13 2.1.13 M.D. Aspirin Hx Tablets 81mg 90tab 1 po qd Angel /0000 s F. - Marie, 09/05 M.D. Famotidine Hx Tablets 40mg 30tab 1 po qd Unknown / s - 06/10 Ondansetron HCL Hx Tablets 4mg 30tab one by Unknown /0000 s mouth - every 8 06/10 hours needed for nausea Tums Hx Chewtabs 500mg prn Unknown /0000 - 06/10 [facility] Lutein Hx Capsules 40mg 1 by Unknown /0000 mouth - every /2018 Amoxicillin Hx Tablets 875mg take one Unknown /0000 tablet - by mouth 09/27 twice a day (will be done in two days) Immunizations Description No Information Available Vital Signs Date Vital Result Comment 07/04/2018 3:02pm Height 63 inches 5'3" Heart Rate 72 /min BP Systolic Sitting 148 mmHg BP Diastolic Sitting 80 mmHg Ejection Fraction 65% 11/05/17 echo 06/17/2018 2:16pm Height 63 inches 5'3" Weight 122.00 lb per weight watcher scale. Declined weight Heart Rate 68 /min BP Systolic Sitting 150 mmHg right arm BP Diastolic Sitting 60 mmHg right arm BP Systolic Standing 150 mmHg right arm BP Diastolic Standing 68 mmHg right arm BMI (Body Mass Index) 21.6 kg/m2 Ejection Fraction >65% Echocardiogram 11/05/17 12/07/2017 8:11am Height 63 inches 5'3" Weight 123.00 lb Heart Rate 64 /min BP Systolic 124 mmHg BP Diastolic 64 mmHg BMI (Body Mass Index) 21.8 kg/m2 Ejection Fraction >65 echo 11/05/17 09/28/2017 1:57pm Height 63 inches 5'3" Weight 124.00 lb Heart Rate 72 /min reg BP Systolic Sitting 110 mmHg BP Diastolic Sitting 60 mmHg Respiratory Rate 16 /min BMI (Body Mass Index) 22.0 kg/m2 Ejection Fraction 65-70% as of 08/2017 echo 09/02/2017 1:40pm Height 63 inches 5'3" Heart Rate 68 /min BP Systolic Sitting 122 mmHg Rue reg cuff BP Diastolic Sitting 80 mmHg Rue reg cuff BP Systolic Standing 124 mmHg Rue reg cuff BP Diastolic Standing 80 mmHg Rue reg cuff Respiratory Rate 16 /min 08/26/2017 8:18am Height 63 inches 5'3" Weight 124.00 lb Heart Rate 68 /min BP Systolic 180 mmHg BP Diastolic 120 mmHg BMI (Body Mass Index) 22.0 kg/m2 Ejection Fraction 60-65% echo 04-04-2014 04/05/2017 8:29am Height 63 inches 5'3" Weight 121.00 lb per pt Heart Rate 76 /min BP Systolic Sitting 158 mmHg LA reg cuff BP Diastolic Sitting 96 mmHg LA reg cuff BP Systolic Standing 152 mmHg la repeat sitting BP Diastolic Standing 72 mmHg la repeat sitting BMI (Body Mass Index) 21.4 kg/m2 Ejection Fraction 60%-65% echo 04/04/14 12/02/2016 11:05am Height 63 inches 5'3" Heart Rate 62 /min BP Systolic Sitting 134 mmHg LA reg cuff BP Diastolic Sitting 82 mmHg LA reg cuff Ejection Fraction 60% - 65% echo 04/04/14 10/26/2016 9:01am Height 63 inches 5'3" Weight 119.00 lb with shoes Heart Rate 66 /min BP Systolic 152 mmHg LA reg cuff BP Diastolic 96 mmHg LA reg cuff BMI (Body Mass Index) 21.1 kg/m2 Ejection Fraction 60% - 65% echocardiogram 04/04/14 03/31/2016 12:58pm Height 63 inches 5'3" Weight 121.25 lb per pt Heart Rate 66 /min BP Systolic Sitting 104 mmHg LA reg cuff BP Diastolic Sitting 58 mmHg LA reg cuff BMI (Body Mass Index) 21.5 kg/m2 12/31/2015 10:14am Height 63 inches 5'3" Weight 123.38 lb with shoes Heart Rate 80 /min BP Systolic Sitting 160 mmHg LA reg cuff BP Diastolic Sitting 90 mmHg LA reg cuff BP Systolic Standing 152 mmHg La reg cuff BP Diastolic Standing 90 mmHg La reg cuff Respiratory Rate 17 /min BMI (Body Mass Index) 21.9 kg/m2 Ejection Fraction 60-65% date 04/04/14 ECHO 06/11/2015 12:43pm Height 63 inches 5'3" Weight 123.00 lb without shoes Heart Rate 70 /min BP Systolic Sitting 130 mmHg Ra reg cuff BP Diastolic Sitting 60 mmHg Ra reg cuff Respiratory Rate 17 /min BMI (Body Mass Index) 21.8 kg/m2 08/27/2014 1:19pm Height 63 inches 5'3" Weight 124.00 lb Heart Rate 74 /min BP Systolic 130 mmHg LA reg BP Diastolic 62 mmHg LA reg BMI (Body Mass Index) 22.0 kg/m2 04/10/2014 11:04am Height 63 inches 5'3" Weight 124.00 lb without shoes Heart Rate 64 /min regular BP Systolic Sitting 116 mmHg right arm reg cuff BP Diastolic Sitting 72 mmHg right arm reg cuff BP Systolic Standing 118 mmHg right arm reg cuff BP Diastolic Standing 70 mmHg right arm reg cuff Respiratory Rate 18 /min BMI (Body Mass Index) 22.0 kg/m2 02/26/2014 3:33pm Height 63 inches 5'3" Weight 124.00 lb Heart Rate 68 /min BP Systolic 152 mmHg LA reg BP Diastolic 72 mmHg LA reg BMI (Body Mass Index) 22.0 kg/m2 07/07/2013 3:19pm Height 63 inches 5'3" Weight 123.00 lb per pt at weight watcher Heart Rate 68 /min BP Systolic Sitting 180 mmHg BP Diastolic Sitting 80 mmHg BMI (Body Mass Index) 21.8 kg/m2 12/30/2012 12:11pm Height 63 inches 5'3" Weight 123.00 lb Heart Rate 72 /min BP Systolic Sitting 150 mmHg BP Diastolic Sitting 70 mmHg Respiratory Rate 16 /min BMI (Body Mass Index) 21.8 kg/m2 09/07/2012 11:20am Height 63 inches 5'3" Weight 125.00 lb Heart Rate 70 /min BP Systolic 124 mmHg BP Diastolic 66 mmHg BMI (Body Mass Index) 22.1 kg/m2 07/14/2012 10:28am Height 63 inches 5'3" Heart Rate 63 /min BP Systolic 150 mmHg BP Diastolic 80 mmHg 07/07/2012 11:51am Height 63 inches 5'3" Heart Rate 68 /min BP Systolic 140 mmHg BP Diastolic 68 mmHg Respiratory Rate 16 /min 06/10/2012 9:43am Height 63 inches 5'3" Weight 129.00 lb Heart Rate 72 /min BP Systolic 118 mmHg BP Diastolic 64 mmHg BMI (Body Mass Index) 22.8 kg/m2 05/13/2012 10:51am Height 63 inches 5'3" Weight 137.25 lb per pt Heart Rate 76 /min BP Systolic 120 mmHg BP Diastolic 68 mmHg BMI (Body Mass Index) 24.3 kg/m2 04/04/2012 3:55pm Height 63 inches 5'3" Heart Rate 77 /min BP Systolic 160 mmHg BP Diastolic 68 mmHg Respiratory Rate 16 /min 01/13/2012 9:55am Height 63 inches 5'3" Weight 149.00 lb per pt Heart Rate 88 /min BP Systolic 124 mmHg BP Diastolic 70 mmHg BMI (Body Mass Index) 26.4 kg/m2 12/30/2011 1:53pm Height 63 inches 5'3" Heart Rate 78 /min reg BP Systolic Sitting 160 mmHg BP Diastolic Sitting 90 mmHg 12/07/2011 1:06pm Height 63 inches 5'3" Weight 152.00 lb pt would not let me weigh her Heart Rate 72 /min BP Systolic Sitting 168 mmHg BP Diastolic Sitting 70 mmHg Respiratory Rate 20 /min BMI (Body Mass Index) 26.9 kg/m2 09/28/2011 10:20am Height 63 inches 5'3" Weight 153.00 lb per pt Heart Rate 66 /min BP Systolic 130 mmHg BP Diastolic 76 mmHg BMI (Body Mass Index) 27.1 kg/m2 09/09/2011 1:14pm Height 63 inches 5'3" Weight 153.00 lb stated Heart Rate 64 /min BP Systolic Sitting 144 mmHg BP Diastolic Sitting 82 mmHg BMI (Body Mass Index) 27.1 kg/m2 09/02/2011 10:30am Height 63 inches 5'3" Weight 154.00 lb stated Heart Rate 54 /min BP Systolic 130 mmHg BP Diastolic 60 mmHg Respiratory Rate 16 /min BMI (Body Mass Index) 27.3 kg/m2 08/31/2011 11:44am Height 63 inches 5'3" Heart Rate 63 /min BP Systolic Sitting 154 mmHg BP Diastolic Sitting 86 mmHg 08/27/2011 2:32pm Heart Rate 48 /min regularly irregular BP Systolic Sitting 110 mmHg BP Diastolic Sitting 62 mmHg 08/17/2011 2:58pm Height 62 inches 5'2" Weight 151.00 lb per pt did not want to weight today Heart Rate 59 /min BP Systolic 112 mmHg BP Diastolic 64 mmHg BMI (Body Mass Index) 27.6 kg/m2 07/16/2011 10:02am Height 62 inches 5'2" Weight 155.00 lb per pt at weight watchers Heart Rate 63 /min BP Systolic 120 mmHg BP Diastolic 72 mmHg BMI (Body Mass Index) 28.3 kg/m2 04/13/2011 2:20pm Height 62 inches 5'2" Weight 150.00 lb Heart Rate 58 /min BP Systolic 130 mmHg BP Diastolic 82 mmHg BMI (Body Mass Index) 27.4 kg/m2 12/11/2010 1:39pm Height 62 inches 5'2" Weight 155.00 lb at weight watchers Heart Rate 61 /min BP Systolic Sitting 124 mmHg BP Diastolic Sitting 80 mmHg BMI (Body Mass Index) 28.3 kg/m2 08/13/2010 11:29am Heart Rate 68 /min BP Systolic Sitting 128 mmHg BP Diastolic Sitting 70 mmHg 01/06/2010 9:01am Heart Rate 78 /min BP Systolic Sitting 130 mmHg BP Diastolic Sitting 72 mmHg 09/25/2009 11:13am Heart Rate 56 /min BP Systolic 134 mmHg BP Diastolic 72 mmHg Respiratory Rate 16 /min 08/29/2009 2:11pm Heart Rate 64 /min BP Systolic Sitting 140 mmHg BP Diastolic Sitting 86 mmHg Body Temperature 98.6 F 01/16/2009 10:10am Height 62 inches 5'2" Heart Rate 64 /min BP Systolic Sitting 124 mmHg L BP Diastolic Sitting 74 mmHg L 01/03/2009 9:16am Height 62 inches 5'2" Weight 150.00 lb Heart Rate 60 /min BP Systolic Sitting 144 mmHg BP Diastolic Sitting 76 mmHg BMI (Body Mass Index) 27.4 kg/m2 11/20/2008 10:05am Height 62 inches 5'2" Weight 154.50 lb Heart Rate 70 /min BP Systolic Sitting 140 mmHg BP Diastolic Sitting 80 mmHg BP Systolic Standing 140 mmHg BP Diastolic Standing 80 mmHg BMI (Body Mass Index) 28.3 kg/m2 10/15/2008 8:42am Height 62 inches 5'2" Weight 151.00 lb Heart Rate 63 /min BP Systolic Sitting 144 mmHg BP Diastolic Sitting 84 mmHg BP Systolic Standing 140 mmHg BP Diastolic Standing 80 mmHg BMI (Body Mass Index) 27.6 kg/m2 10/20/2007 9:21am Height 62 inches 5'2" Weight 150.00 lb Heart Rate 60 /min BP Systolic Sitting 138 mmHg BP Diastolic Sitting 70 mmHg BMI (Body Mass Index) 27.4 kg/m2 07/11/2007 10:07am Height 62 inches 5'2" Heart Rate 68 /min BP Systolic Sitting 150 mmHg BP Diastolic Sitting 82 mmHg Respiratory Rate 16 /min 06/06/2007 2:07pm Height 62 inches 5'2" Heart Rate 60 /min BP Systolic Sitting 180 mmHg BP Diastolic Sitting 94 mmHg Respiratory Rate 16 /min 04/20/2007 3:45pm Height 62 inches 5'2" Heart Rate 72 /min BP Systolic Sitting 148 mmHg BP Diastolic Sitting 76 mmHg 11/30/2006 8:59am Height 62 inches 5'2" Heart Rate 62 /min reg BP Systolic Sitting 180 mmHg BP Diastolic Sitting 100 mmHg 05/31/2006 3:37pm Height 62 inches 5'2" Heart Rate 62 /min BP Systolic Sitting 150 mmHg BP Diastolic Sitting 90 mmHg BP Systolic Standing 160 mmHg BP Diastolic Standing 94 mmHg 05/20/2005 9:59am Height 62 inches 5'2" Weight 150.00 lb patient declines to be weighed. Weight at Heart Rate 64 /min weight watchers 10 150 lbs BP Systolic Sitting 170 mmHg left arm, right arm 180/90 BP Diastolic Sitting 90 mmHg left arm, right arm 180/90 BP Systolic Standing 170 mmHg BP Diastolic Standing 96 mmHg BMI (Body Mass Index) 27.4 kg/m2 Results Test Date Facility Test Result H/L Range Note Laboratory test 06/17/2018 [facility] Digoxin 1.1 ng/ml N 0.8- 2.[address] [place] [address] [phone] CBC Auto Diff 06/17/2018 [facility] White Blood 8.9 10^3/uL N 3.5-10.[address] [place] [address] [phone] Red Blood Count 4.28 10^6/uL N 4.00-5.40 Hemoglobin 13.4 g/dL N 12.0-16.0 Hematocrit 40 % N 35-47 Mean Corpuscular Volume 94 fL N 80-97 Mean Corpuscular Hemoglobin 31 pg N 27-31 Mean Corpuscular HGB Conc 33 g/dL N 31-36 Red Cell Distribution Width 15 % N 10.5-15 Platelet Count 205 10^3/uL N 150-450 Mean Platelet Volume 10.0 fL N 7.4-10.4 Abs Neutrophils 4.9 10^3/uL N 1.5-7.7 Abs Lymphocytes 2.9 10^3/uL N 1.0-4.8 Abs Monocytes 0.7 10^3/uL N 0-0.8 Abs Eosinophils 0.3 10^3/uL N 0-0.6 Abs Basophils 0.1 10^3/uL N 0-0.2 Abs Nucleated RBC 0 10^3/uL Granulocyte % 55.0 % Lymphocyte % 32.9 % Monocyte % 8.1 % Eosinophil % 3.4 % Basophil % 0.6 % Nucleated Red Blood Cells % 0.1 Laboratory test 06/17/2018 [facility] TSH (Thyroid 1.97 mcIU/mL N 0.34-5.[address] Stim Horm) [place] [address] [phone] Lipid Panel - 06/17/2018 [facility] Creatine 92 U/L N 10-[address] Kinase(CK) [place] [address] [phone] Comp Metabolic 06/17/2018 [facility] Sodium 139 mmol/L N 135- [address] [place] [address] [phone] Potassium 3.9 mmol/L N 3.5-5.0 Chloride 103 mmol/L N 101-111 Co2 Carbon Dioxide 28 mmol/L N 22-32 Anion Gap 8 mmol/L N 2-11 Glucose 80 mg/dL N 70-100 Blood Urea Nitrogen 20 mg/dL N 6-24 Creatinine 0.84 mg/dL N 0.51-0.95 BUN/Creatinine Ratio 23.8 High 8-20 Calcium 9.7 mg/dL N 8.6-10.3 Total Protein 7.2 g/dL N 6.4-8.9 Albumin 4.5 g/dL N 3.2-5.2 Globulin 2.7 g/dL N 2-4 Albumin/Globulin Ratio 1.7 N 1-3 Total Bilirubin 0.40 mg/dL N 0.2-1.0 Alkaline Phosphatase 51 U/L N 34-104 Alt 14 U/L N 7-52 Ast 17 U/L N 13-39 Egfr Non- 65.4 >60 Egfr 79.1 >60 1 Lipid Profile 06/17/2018 [facility] Triglycerides 153 mg/dL 2 (Trig/Chol/HDL) [address] [place] [address] [phone] Cholesterol 180 mg/dL 3 HDL Cholesterol 42.1 mg/dL 4 LDL Cholesterol 107 mg/dL 5 BUN/Creat/GFR 06/14/2018 [facility] Poc Blood Urea 17 mg/dL N 8-[address] [place] [address] [phone] Poc Creatinine 0.8 mg/dL N 0.6-1.3 6 Poc BUN/Creatinine Ratio 21.3 High 8-20 Egfr Non- 69.2 >60 Egfr 83.7 >60 7 CBC Auto Diff 12/08/2017 [facility] White Blood 5.9 10^3/uL N 3.5-10.[address] [place] [address] [phone] Red Blood Count 3.81 10^6/uL Low 4.00-5.40 Hemoglobin 11.9 g/dL Low 12.0-16.0 Hematocrit 35 % N 35-47 Mean Corpuscular Volume 93 fL N 80-97 Mean Corpuscular Hemoglobin 31 pg N 27-31 Mean Corpuscular HGB Conc 34 g/dL N 31-36 Red Cell Distribution Width 15 % N 10.5-15 Platelet Count 210 10^3/uL N 150-450 Mean Platelet Volume 10.0 um3 N 7.4-10.4 Abs Neutrophils 3.4 10^3/uL N 1.5-7.7 Abs Lymphocytes 1.7 10^3/uL N 1.0-4.8 Abs Monocytes 0.5 10^3/uL N 0-0.8 Abs Eosinophils 0.2 10^3/uL N 0-0.6 Abs Basophils 0.1 10^3/uL N 0-0.2 Abs Nucleated RBC 0 10^3/uL Granulocyte % 58.4 % N 38-83 Lymphocyte % 28.6 % N 25-47 Monocyte % 7.8 % High 0-7 Eosinophil % 4.1 % N 0-6 Basophil % 1.1 % N 0-2 Nucleated Red Blood Cells % 0 Lipid Panel - 12/08/2017 [facility] Creatine 49 U/L N 10-[address] Kinase(CK) [place] [address] [phone] Comp Metabolic 12/08/2017 [facility] Sodium 141 N 135-145 Panel 101 mmol/[place] [address] [phone] Potassium 4.3 mmol/L N 3.5-5.0 Chloride 107 mmol/L N 101-111 Co2 Carbon Dioxide 29 mmol/L N 22-32 Anion Gap 5 mmol/L N 2-11 Glucose 88 mg/dL N 70-100 Blood Urea Nitrogen 13 mg/dL N 6-24 Creatinine 0.85 mg/dL N 0.51-0.95 BUN/Creatinine Ratio 15.3 N 8-20 Calcium 9.3 mg/dL N 8.6-10.3 Total Protein 7.0 g/dL N 6.4-8.9 Albumin 4.1 g/dL N 3.2-5.2 Globulin 2.9 g/dL N 2-4 Albumin/Globulin Ratio 1.4 N 1-3 Total Bilirubin 0.40 mg/dL N 0.2-1.0 Alkaline Phosphatase 55 U/L N 34-104 Alt 10 U/L N 7-52 Ast 15 U/L N 13-39 Egfr Non- 64.7 >60 Egfr 78.3 >60 8 Lipid Profile 12/08/2017 [facility] Triglycerides 92 mg/dL 9 (Trig/Chol/HDL) [address] [place] [address] [phone] Cholesterol 154 mg/dL 10 HDL Cholesterol 40.1 mg/dL 11 LDL Cholesterol 96 mg/dL 12 Laboratory test 12/08/2017 [facility] Magnesium 2.1 mg/dL N 1.9-2.[address] [place] [address] [phone] Digoxin 1.2 ng/ml N 0.8-2.0 Catecholamines Plasma 09/03/2017 [facility] Norepinephrine 682 pg/mL 13 [address] [place] [address] [phone] Epinephrine <25 pg/mL 14 Dopamine <25 pg/mL 15 Laboratory 09/02/2017 [facility] TSH (Thyroid 2.60 N 0.34- 5.60 16, 17 test finding [facility] Stim Horm) mcIU/mL [place], [place] [id number] [phone] Free T4 (Free Thyroxine) 1.12 ng/dL N 0.61-1.12 18 Laboratory test 09/02/2017 [facility] Digoxin 0.9 ng/ml N 0.8- 2.0 19 finding [address] [place] [address] [phone] Cortisol 16.43 g/dL 20 Basic Metabolic Panel 09/02/2017 [facility] Sodium 141 mmol/L N 139-145 [address] [place] [address] [phone] Potassium 4.6 mmol/L N 3.5-5.0 Chloride 107 mmol/L N 101-111 Co2 Carbon Dioxide 27 mmol/L N 22-32 Anion Gap 7 mmol/L N 2-11 Glucose 97 mg/dL N 70-100 Blood Urea Nitrogen 24 mg/dL N 6-24 Creatinine 0.82 mg/dL N 0.51-0.95 BUN/Creatinine Ratio 29.3 High 8-20 Calcium 9.2 mg/dL N 8.6-10.3 Egfr Non- 67.4 >60 Egfr 86.7 >60 21 Lipid Profile 09/02/2017 [facility] Triglycerides 124 mg/dL 22 (Trig/Chol/HDL) [address] [place] [address] [phone] Cholesterol 187 mg/dL 23 HDL Cholesterol 35.8 mg/dL 24 LDL Cholesterol 126 mg/dL 25 Laboratory test 08/26/2017 [facility] Digoxin <pending> finding [address] [place] [address] [phone] Laboratory test 08/26/2017 [facility] Cortisol <pending> finding [address] [place] [address] [phone] CBC Auto Diff 05/05/2017 [facility] White Blood 7.1 10^3/uL N 3.5-10 [facility] Count .[address] [place] [address] [phone] Red Blood Count 4.29 10^6/uL N 4.0-5.4 Hemoglobin 13.9 g/dL N 12.0-16.0 Hematocrit 41 % N 35-47 Mean Corpuscular Volume 95 fL N 80-97 Mean Corpuscular Hemoglobin 32 pg High 27-31 Mean Corpuscular HGB Conc 34 g/dL N 31-36 Red Cell Distribution Width 14 % N 10.5-15 Platelet Count 196 10^3/uL N 150-450 Mean Platelet Volume 10 um3 N 7.4-10.4 Abs Neutrophils 4.2 10^3/uL N 1.5-7.7 Abs Lymphocytes 2.0 10^3/uL N 1.0-4.8 Abs Monocytes 0.5 10^3/uL N 0-0.8 Abs Eosinophils 0.3 10^3/uL N 0-0.6 Abs Basophils 0.1 10^3/uL N 0-0.2 Abs Nucleated RBC 0 10^3/uL Granulocyte % 58.8 % N 38-83 Lymphocyte % 28.7 % N 25-47 Monocyte % 7.7 % N 1-9 Eosinophil % 4.0 % N 0-6 Basophil % 0.8 % N 0-2 Nucleated Red Blood Cells % 0 Lipid Profile 05/05/2017 [facility] Triglycerides 122 mg/dL 26 (Trig/Chol/HDL) [address] [place] [address] [phone] Cholesterol 196 mg/dL 27 HDL Cholesterol 42.5 mg/dL 28 LDL Cholesterol 129 mg/dL 29 Comp Metabolic Panel 05/05/2017 [facility] Sodium 137 mmol/L N 133-145 [address] [place] [address] [phone] Potassium 4.5 mmol/L N 3.5-5.0 Chloride 103 mmol/L N 101-111 Co2 Carbon Dioxide 31 mmol/L N 22-32 Anion Gap 3 mmol/L N 2-11 Glucose 93 mg/dL N 70-100 Blood Urea Nitrogen 19 mg/dL N 6-24 Creatinine 0.86 mg/dL N 0.51-0.95 BUN/Creatinine Ratio 22.1 High 8-20 Calcium 9.1 mg/dL N 8.6-10.3 Total Protein 7.0 g/dL N 6.4-8.9 Albumin 4.1 g/dL N 3.2-5.2 Globulin 2.9 g/dL N 2-4 Albumin/Globulin Ratio 1.4 N 1-3 Total Bilirubin 0.60 mg/dL N 0.2-1.0 Alkaline Phosphatase 55 U/L N 34-104 Alt 13 U/L N 7-52 Ast 17 U/L N 13-39 Egfr Non- 63.8 >60 Egfr 82.1 >60 30 Lipid Panel - JFM 05/05/2017 [facility] Creatine 73 U/L N 10- [address] Kinase(CK) [place] [address] [phone] Laboratory test 10/26/2016 [facility] Digoxin 0.8 ng/ml N 0.8- 2.[address] [place] [address] [phone] Basic Metabolic 10/26/2016 [facility] Sodium 134 N 133-[address] mmol/[place] [address] [phone] Potassium 5.1 mmol/L High 3.5-5.0 Chloride 105 mmol/L N 101-111 Co2 Carbon Dioxide 22 mmol/L N 22-32 Anion Gap 7 mmol/L N 2-11 Glucose 106 mg/dL High 70-100 Blood Urea Nitrogen 22 mg/dL N 6-24 Creatinine 0.86 mg/dL N 0.51-0.95 BUN/Creatinine Ratio 25.6 High 8-20 Calcium 8.8 mg/dL N 8.6-10.3 Egfr Non- 64.0 N >60 Egfr 82.3 N >60 31 Lipid Panel - 05/28/2016 [facility] Creatine 62 U/L N 10-[address] Kinase(CK) [place] [address] [phone] Comp Metabolic 05/28/2016 [facility] Sodium 140 N 133-[address] mmol/[place] [address] [phone] Potassium 4.0 mmol/L N 3.5-5.0 Chloride 107 mmol/L N 101-111 Co2 Carbon Dioxide 27 mmol/L N 22-32 Anion Gap 6 mmol/L N 2-11 Glucose 99 mg/dL N 70-100 Blood Urea Nitrogen 23 mg/dL N 6-24 Creatinine 0.87 mg/dL N 0.51-0.95 BUN/Creatinine Ratio 26.4 High 8-20 Calcium 8.8 mg/dL N 8.6-10.3 Total Protein 6.3 g/dL Low 6.4-8.9 Albumin 3.8 g/dL N 3.2-5.2 Globulin 2.5 g/dL N 2-4 Albumin/Globulin Ratio 1.5 N 1-3 Total Bilirubin 0.30 mg/dL N 0.2-1.0 Alkaline Phosphatase 44 U/L N 34-104 Alt 11 U/L N 7-52 Ast 13 U/L N 13-39 Egfr Non- 63.1 N >60 Egfr 81.2 N >60 32 Lipid Profile 05/28/2016 [facility] Triglycerides 70 mg/dL N 33 (Trig/Chol/HDL) [address] [place] [address] [phone] Cholesterol 150 mg/dL N 34 HDL Cholesterol 38.0 mg/dL N 35 LDL Cholesterol 98 mg/dL N 36 Laboratory test 05/28/2016 [facility] Digoxin 1.3 ng/ml N 0.8- 2.[address] [place] [address] [phone] Laboratory test 03/25/2016 [facility] TSH (Thyroid 2.61 N 0.34 -5.[address] Stim Horm) mcIU/[place] [address] [phone] Digoxin 0.9 ng/ml N 0.8-2.0 38 CBC Auto Diff 03/25/2016 [facility] White Blood 7.0 10^3/uL N 3.5-10.8 [place] [address] [phone] Red Blood Count 4.24 10^6/uL N 4.0-5.4 Hemoglobin 13.3 g/dL N 12.0-16.0 Hematocrit 40 % N 35-47 Mean Corpuscular Volume 94 fL N 80-97 Mean Corpuscular Hemoglobin 31 pg N 27-31 Mean Corpuscular HGB Conc 33 g/dL N 31-36 Red Cell Distribution Width 14 % N 10.5-15 Platelet Count 192 10^3/uL N 150-450 Mean Platelet Volume 10 um3 N 7.4-10.4 Abs Neutrophils 3.7 10^3/uL N 1.5-7.7 Abs Lymphocytes 2.3 10^3/uL N 1.0-4.8 Abs Monocytes 0.6 10^3/uL N 0-0.8 Abs Eosinophils 0.4 10^3/uL N 0-0.6 Abs Basophils 0.1 10^3/uL N 0-0.2 Abs Nucleated RBC 0 10^3/uL N Granulocyte % 53.1 % N 38-83 Lymphocyte % 33.0 % N 25-47 Monocyte % 7.9 % N 1-9 Eosinophil % 5.1 % N 0-6 Basophil % 0.9 % N 0-2 Nucleated Red Blood Cells % 0 N Laboratory test 03/25/2016 [facility] Magnesium 2.2 mg/dL N 1.9-2.7 39 finding [address] [place] [address] [phone] Lipid Profile 03/25/2016 [facility] Triglycerides 87 mg/dL N 40 (Trig/Chol/HDL) [address] [place] [address] [phone] Cholesterol 173 mg/dL N 41 HDL Cholesterol 40.4 mg/dL N 42 LDL Cholesterol 115 mg/dL N 43 Comp Metabolic Panel 03/25/2016 [facility] Sodium 139 mmol/L N 133-145 [address] [place] [address] [phone] Potassium 4.1 mmol/L N 3.5-5.0 Chloride 106 mmol/L N 101-111 Co2 Carbon Dioxide 27 mmol/L N 22-32 Anion Gap 6 mmol/L N 2-11 Glucose 101 mg/dL High 70-100 Blood Urea Nitrogen 17 mg/dL N 6-24 Creatinine 0.84 mg/dL N 0.51-0.95 BUN/Creatinine Ratio 20.2 High 8-20 Calcium 9.0 mg/dL N 8.6-10.3 Total Protein 6.7 g/dL N 6.4-8.9 Albumin 3.9 g/dL N 3.2-5.2 Globulin 2.8 g/dL N 2-4 Albumin/Globulin Ratio 1.4 N 1-3 Total Bilirubin 0.60 mg/dL N 0.2-1.0 Alkaline Phosphatase 51 U/L N 34-104 Alt 11 U/L N 7-52 Ast 17 U/L N 13-39 Egfr Non- 65.7 N >60 Egfr 84.6 N >60 44 Lipid Panel - 03/25/2016 [facility] Creatine 105 U/L N 10-223 [address] Kinase(CK) [place] [address] [phone] Lipid Panel - 07/02/2015 [facility] Creatine 58 U/L N 10-223 [address] Kinase(CK) [place] [address] [phone] Comp Metabolic 07/02/2015 [facility] Sodium 137 N 133-[address] mmol/[place] [address] [phone] Potassium 4.5 mmol/L N 3.5-5.0 Chloride 103 mmol/L N 101-111 Co2 Carbon Dioxide 26 mmol/L N 22-32 Anion Gap 8 mmol/L N 2-11 Glucose 91 mg/dL N 70-100 Blood Urea Nitrogen 16 mg/dL N 6-24 Creatinine 0.87 mg/dL N 0.51-0.95 BUN/Creatinine Ratio 18.4 N 8-20 Calcium 8.9 mg/dL N 8.6-10.3 Total Protein 6.8 g/dL N 6.4-8.9 Albumin 4.1 g/dL N 3.2-5.2 Globulin 2.7 g/dL N 2-4 Albumin/Globulin Ratio 1.5 N 1-3 Total Bilirubin 0.60 mg/dL N 0.2-1.0 Alkaline Phosphatase 48 U/L N 34-104 Alt 11 U/L N 7-52 Ast 14 U/L N 13-39 Egfr Non- 63.3 N >60 Egfr 81.4 N >60 47 Lipid Profile 07/02/2015 [facility] Triglycerides 115 mg/dL N 48 (Trig/Chol/HDL) [address] [place] [address] [phone] Cholesterol 171 mg/dL N 49 HDL Cholesterol 36.7 mg/dL N 50 LDL Cholesterol 111 mg/dL N 51 Laboratory test 07/02/2015 [facility] Digoxin 0.7 ng/ml Low 0.8-2.[address] [place] [address] [phone] Laboratory test 10/03/2014 [facility] Digoxin 0.8 ng/ml N 0.8- 2.[address] [place] [address] [phone] Basic Metabolic 09/21/2014 Sodium 137 mmol/L N 133-145 Panel Potassium 4.2 mmol/L N 3.5-5.0 Chloride 105 mmol/L N 101-111 Co2 Carbon Dioxide 24 mmol/L N 22-32 Anion Gap 8 mmol/L N 2-11 Glucose 80 mg/dL N 70-100 Blood Urea Nitrogen 18 mg/dL N 6-24 Creatinine 0.76 mg/dL N 0.51-0.95 BUN/Creatinine Ratio 23.7 High 8-20 Calcium 9.0 mg/dL N 8.6-10.3 Egfr Non- 74.2 N >60 Egfr 95.4 N >60 53 Vitamin B12 And Folate Serum 09/21/2014 Vitamin B12 321 pg/mL N 180-914 54 Folic Acid (Folate) 15.47 ng/mL N >3.99 Laboratory test finding 09/21/2014 Magnesium 2.0 mg/dL N 1.9-2.7 Basic Metabolic Panel 07/19/2014 Sodium 139 mmol/L N 133-145 Potassium 4.3 mmol/L N 3.5-5.0 Chloride 105 mmol/L N 101-111 Co2 Carbon Dioxide 27 mmol/L N 22-32 Anion Gap 7 mmol/L N 2-11 Glucose 81 mg/dL N 70-100 Blood Urea Nitrogen 16 mg/dL N 6-24 Creatinine 0.81 mg/dL N 0.51-0.95 BUN/Creatinine Ratio 19.8 N 8-20 Calcium 9.2 mg/dL N 8.6-10.3 Egfr Non- 68.9 N >60 Egfr 88.6 N >60 55 Laboratory test finding 07/19/2014 Digoxin 1.1 ng/ml N 0.8-2.0 Laboratory test finding 05/01/2014 Digoxin 0.7 ng/ml Low 0.8-2.0 Basic Metabolic Panel 05/01/2014 Sodium 138 mmol/L N 133-145 Potassium 4.3 mmol/L N 3.5-5.0 Chloride 105 mmol/L N 101-111 Co2 Carbon Dioxide 25 mmol/L N 22-32 Anion Gap 8 mmol/L N 2-11 Glucose 76 mg/dL N 70-100 Blood Urea Nitrogen 17 mg/dL N 6-24 Creatinine 0.73 mg/dL N 0.51-0.95 BUN/Creatinine Ratio 23.3 High 8-20 Calcium 9.2 mg/dL N 8.6-10.3 Egfr Non- 77.7 N >60 Egfr 100.0 N >60 56 Basic Metabolic Panel 03/20/2014 Sodium 138 mmol/L N 133-145 Potassium 4.2 mmol/L N 3.5-5.0 57 Chloride 105 mmol/L N 101-111 Co2 Carbon Dioxide 26 mmol/L N 22-32 Anion Gap 7 mmol/L N 2-11 Glucose 92 mg/dL N 70-100 Blood Urea Nitrogen 16 mg/dL N 6-24 Creatinine 0.69 mg/dL N 0.51-0.95 BUN/Creatinine Ratio 23.2 High 8-20 Calcium 9.4 mg/dL N 8.6-10.3 Egfr Non- 82.9 N >60 Egfr 106.7 N >60 58 Laboratory test finding 03/20/2014 Digoxin 0.9 ng/ml N 0.8-2.0 Magnesium 2.0 mg/dL N 1.9-2.7 Basic Metabolic Panel 02/27/2014 Sodium 136 mmol/L N 133-145 Potassium 4.1 mmol/L N 3.7-5.6 Chloride 104 mmol/L N 101-111 Co2 Carbon Dioxide 26 mmol/L N 22-32 Anion Gap 6 mmol/L N 2-11 Glucose 77 mg/dL N 70-100 Blood Urea Nitrogen 18 mg/dL N 6-24 Creatinine 0.76 mg/dL N 0.51-0.95 BUN/Creatinine Ratio 23.7 High 8-20 Calcium 9.0 mg/dL N 8.6-10.3 Egfr Non- 74.4 N >60 Egfr 95.7 N >60 59 Laboratory test finding 02/27/2014 TSH (Thyroid 0.99 IU/mL N 0.34-5.60 Stimulating Horm) CBC Auto Diff 02/27/2014 White Blood Count 7.2 10^3/uL N 4.8-10.8 Red Blood Count 4.09 10^6/uL N 4.0-5.4 Hemoglobin 13.3 g/dL N 12.0-16.0 Hematocrit 39 % N 35-47 Mean Corpuscular Volume 96 fL N 80-97 Mean Corpuscular Hemoglobin 33 pg High 27-31 Mean Corpuscular HGB Conc 34 g/dL N 31-36 Red Cell Distribution Width 13 % N 10.5-15 Platelet Count 189 10^3/uL N 150-450 Mean Platelet Volume 10 um3 N 7.4-10.4 Abs Neutrophils 4.0 10^3/uL N 1.5-7.7 Abs Lymphocytes 2.4 10^3/uL N 1.0-4.8 Abs Monocytes 0.6 10^3/uL N 0-0.8 Abs Eosinophils 0.2 10^3/uL N 0-0.6 Abs Basophils 0 10^3/uL N 0-0.2 Abs Nucleated RBC 0 10^3/uL N Granulocyte % 56.2 % N 38-83 Lymphocyte % 32.8 % N 25-47 Monocyte % 7.7 % N 1-9 Eosinophil % 2.7 % N 0-6 Basophil % 0.6 % N 0-2 Nucleated Red Blood Cells % 0 N Laboratory test finding 02/27/2014 Magnesium 2.0 mg/dL N 1.9-2.7 Digoxin 0.7 ng/ml Low 0.8-2.0 Basic Metabolic Panel 12/06/2012 [facility] Sodium 139 mmol/L 133-145 [address] [place] [address] [phone] Potassium 3.9 mmol/L 3.5-5.0 Chloride 107 mmol/L 101-111 Co2 Carbon Dioxide 26.0 mmol/L 22-32 Anion Gap 6.0 mmol/L 2-11 Glucose 115 mg/dL High 70-100 Blood Urea Nitrogen 15 mg/dL 6-24 Creatinine 0.70 mg/dL 0.50-1.40 BUN/Creatinine Ratio 21.4 High 8-20 Calcium 9.0 mg/dL 8.1-9.9 Egfr Non- 82.0 >60 Egfr 105.5 >60 60 Laboratory test 07/05/2012 [facility] Creatine Kinase 41 U/L 0-200 finding [address] [place] [address] [phone] Lipid Profile 07/05/2012 [facility] Triglycerides 86 mg/dL 40 -200 (Trig/Chol/HDL) [address] [place] [address] [phone] Cholesterol 180 mg/dL Less than 200 HDL Cholesterol 42 mg/dL 40-60 61 Cholesterol/HDL Ratio 4.3 Average 1-4.44 LDL Cholesterol 120.8 mg/dL High Less Than 100 62 Comp Metabolic Panel 07/05/2012 [facility] Sodium 143 mmol/L 133-145 [address] [place] [address] [phone] Potassium 4.0 mmol/L 3.5-5.0 Chloride 110 mmol/L 101-111 Co2 Carbon Dioxide 27.0 mmol/L 22-32 Anion Gap 6.0 mmol/L 2-11 Glucose 94 mg/dL 70-100 Blood Urea Nitrogen 12 mg/dL 6-24 Creatinine 0.70 mg/dL 0.50-1.40 BUN/Creatinine Ratio 17.1 8-20 Calcium 8.9 mg/dL 8.1-9.9 Total Protein 5.8 g/dL Low 6.2-8.1 Albumin 3.5 g/dL 3.2-5.2 Globulin 2.3 g/dL 2-4 Albumin/Globulin Ratio 1.5 1-3 Total Bilirubin 0.6 mg/dL 0.4-1.5 Alkaline Phosphatase 55 U/L 30-110 Alt 13 U/L Low 14-54 Ast 16 U/L 12-42 Egfr Non- 82.0 >60 Egfr 105.5 >60 63 Basic Metabolic Panel 02/10/2012 [facility] Sodium 138 mmol/L 133-145 [address] [place] [address] [phone] Potassium 4.0 mmol/L 3.5-5.0 Chloride 107 mmol/L 101-111 Co2 Carbon Dioxide 25.0 mmol/L 22-32 Anion Gap 6.0 mmol/L 2-11 Glucose 111 mg/dL High 70-100 Blood Urea Nitrogen 14 mg/dL 6-24 Creatinine 0.80 mg/dL 0.50-1.40 BUN/Creatinine Ratio 17.5 8-20 Calcium 8.9 mg/dL 8.1-9.9 Egfr Non- 70.5 >60 Egfr 90.7 >60 64 Laboratory test 02/10/2012 [facility] Digoxin < 0.1 Low 0.5- 1.5 [address] NG/[place] [address] [phone] Lipid Panel - 01/12/2012 [facility] CPK (Creatine 57 U/L 0- 170 JFM [address] [facility] Kinase) [place] [address] [phone] Comp Metabolic 01/12/2012 [facility] Sodium 140 mmol/L 135- 145 Panel [address] [place] [address] [phone] Potassium 4.2 mmol/L 3.5-5.0 Chloride 107 mmol/L 101-111 Co2 (Carbon Dioxide) 27.0 mmol/L 22-32 Anion Gap 6.0 mmol/L 2-11 66 Glucose 89 mg/dL 70-100 BUN 12 mg/dL 6-24 Creatinine 0.8 mg/dL 0.50-1.40 One Over Creatinine 1.25 BUN/Creatinine Ratio 15.0 8-20 Calcium 9.1 mg/dL 8.1-9.9 Total Protein 6.0 GM/DL Low 6.2-8.1 Albumin 3.6 GM/DL 3.2-5.2 Globulin 2.4 GM/DL 2-4 Albumin/Globulin Ratio 1.5 1-3 Bilirubin Total 0.6 mg/dL 0.4-1.5 67 Alkaline Phosphatase 62 U/L 30-110 Alt (SGPT) 14 U/L 14-54 Ast (Sgot) 17 U/L 12-42 eGFR Non- 70.5 > 60 eGFR 90.7 > 60 68 Lipid Profile 01/12/2012 [facility] Triglyceride 82 mg/dL 40- 200 (Trig/Chol/HDL) [address] [place] [address] [phone] Cholesterol 146 mg/dL Less Than 200 69 High Density Lipoprotein 35 mg/dL Low 40-60 70 Cholesterol/HDL Ratio 4.17 AVERAGE 1-4.44 Low Density Lipoprotein 95 mg/dL Less Than 100 71 Laboratory test 01/12/2012 [facility] Magnesium 2.2 mg/dL 1.7 -2.6 finding [address] [place] [address] [phone] Basic Metabolic 12/16/2011 [facility] Sodium 135 mmol/L 135- 145 Panel [address] [place] [address] [phone] Potassium 3.9 mmol/L 3.5-5.0 Chloride 105 mmol/L 101-111 Co2 (Carbon Dioxide) 24.0 mmol/L 22-32 Anion Gap 6.0 mmol/L 2-11 72 Glucose 118 mg/dL High 70-100 BUN 14 mg/dL 6-24 Creatinine 0.9 mg/dL 0.50-1.40 One Over Creatinine 1.11 BUN/Creatinine Ratio 15.6 8-20 Calcium 8.9 mg/dL 8.1-9.9 eGFR Non- 61.5 > 60 eGFR 79.2 > 60 73 Laboratory test 12/16/2011 [facility] Digoxin < 0.1 NG/ML Low 0.5-1.5 74 finding [address] [place] [address] [phone] Laboratory test 09/11/2011 [facility] Digoxin < 0.1 NG/ML Low 0.5-1.5 [address] [place] [address] [phone] Laboratory test 08/31/2011 [facility] Troponin-I 0 NG/ML 0- 0.06 76 finding [address] [place] [address] [phone] Basic Metabolic 08/31/2011 [facility] Sodium 142 mmol/L 135- [address] [place] [phone] Potassium 4.3 mmol/L 3.5-5.0 Chloride 107 mmol/L 101-111 Co2 (Carbon Dioxide) 26.0 mmol/L 22-32 Anion Gap 9.0 mmol/L 2-11 77 Glucose 87 mg/dL 70-100 BUN 19 mg/dL 6-24 Creatinine 0.8 mg/dL 0.50-1.40 One Over Creatinine 1.25 BUN/Creatinine Ratio 23.8 High 8-20 Calcium 9.6 mg/dL 8.1-9.9 eGFR Non- 70.5 > 60 eGFR 90.7 > 60 78 Laboratory test 08/31/2011 [facility] Magnesium 2.1 mg/dL 1.7 -2.6 finding [address] [place] [address] [phone] CBC Auto Diff 08/31/2011 [facility] White Blood 6.5 CUMM 4.8- 10.8 [address] [facility] [place] [address] [phone] Red Cell Count 3.98 CUMM Low 4.2-5.4 Hemoglobin 13.1 g/dL 12.0-16.0 Hematocrit 38 % 35-47 Mean Corpuscular Volume 94 um3 79-97 Mean Corpuscular Hemoglob 33 pg High 27-31 Mean Corpuscular HGB Cone 35 g/dL 32-36 Redcell Distribution WDTH 14 % 10.5-15 Platelet Count 185 CUMM 150-450 Mean Platelet Volume 11.6 um3 High 7.4-10.4 Gran % 61.9 % 38-83 Lymph % 28.3 % 25-47 Mononuclear % 7.4 % 1-9 Eosinophil % 1.8 % 0-6 Basophil % 0.6 % 0-2 Abs Lymphs 1.8 1.0-4.8 Abs Mononuclear 0.5 0-0.8 Absolute Neutrophil Count 4.0 1.5-7.7 Abs Eosinophils 0.1 0-0.6 Abs Basophils 0 0-0.2 Laboratory test 08/31/2011 [facility] TSH 0.84 MIU/ML 0.34- 5.60 finding [address] [place] [address] [phone] Digoxin 0.2 NG/ML Low 0.5-1.5 79 Lipid Profile 07/24/2011 [facility] Triglyceride 106 mg/dL 40 -200 (Trig/Chol/HDL) [address] [place] [address] [phone] Cholesterol 150 mg/dL Less Than 200 80 High Density Lipoprotein 39 mg/dL Low 40-60 81 Cholesterol/HDL Ratio 3.85 AVERAGE 1-4.44 Low Density Lipoprotein 90 mg/dL Less Than 100 82 Laboratory test finding 06/11/2011 [facility] Alt (SGPT) 14 U/L 14-54 [address] [place] [address] [phone] Ast (Sgot) 18 U/L 12-42 Lipid Profile 06/11/2011 [facility] Triglyceride 80 mg/dL 40- 200 (Trig/Chol/HDL) [address] [place] [address] [phone] Cholesterol 168 mg/dL Less Than 200 83 High Density Lipoprotein 41 mg/dL 40-60 84 Cholesterol/HDL Ratio 4.10 AVERAGE 1-4.44 Low Density Lipoprotein 111 mg/dL High Less Than 100 85 CBC Auto Diff 06/11/2011 [facility] White Blood 5.8 CUMM 4.8- 10.[address] [place] [address] [phone] Red Cell Count 4.00 CUMM Low 4.2-5.4 Hemoglobin 12.9 g/dL 12.0-16.0 Hematocrit 37 % 35-47 Mean Corpuscular Volume 93 um3 79-97 Mean Corpuscular Hemoglob 32 pg High 27-31 Mean Corpuscular HGB Cone 35 g/dL 32-36 Redcell Distribution WDTH 14 % 10.5-15 Platelet Count 167 CUMM 150-450 Mean Platelet Volume 10.6 um3 High 7.4-10.4 Gran % 60.8 % 38-83 Lymph % 26.6 % 25-47 Mononuclear % 8.5 % 1-9 Eosinophil % 3.3 % 0-6 Basophil % 0.8 % 0-2 Abs Lymphs 1.5 1.0-4.8 Abs Mononuclear 0.5 0-0.8 Absolute Neutrophil Count 3.5 1.5-7.7 Abs Eosinophils 0.2 0-0.6 Abs Basophils 0 0-0.2 Laboratory test 06/11/2011 [facility] CPK (Creatine 84 U/L 0- [address] Kinase) [place] [address] [phone] Comp Metabolic 06/11/2011 [facility] Sodium 139 135-[address] mmol/[place] [address] [phone] Potassium 4.2 mmol/L 3.5-5.0 Chloride 104 mmol/L 101-111 Co2 (Carbon Dioxide) 27.0 mmol/L 22-32 Anion Gap 8.0 mmol/L 2-11 86 Glucose 90 mg/dL 70-100 BUN 16 mg/dL 6-24 Creatinine 0.8 mg/dL 0.50-1.40 One Over Creatinine 1.25 BUN/Creatinine Ratio 20.0 8-20 Calcium 8.7 mg/dL 8.1-9.9 Total Protein 6.4 GM/DL 6.2-8.1 Albumin 3.7 GM/DL 3.2-5.2 Globulin 2.7 GM/DL 2-4 Albumin/Globulin Ratio 1.4 1-3 Bilirubin Total 0.5 mg/dL 0.4-1.5 87 Alkaline Phosphatase 55 U/L 30-110 Alt (SGPT) 13 U/L Low 14-54 Ast (Sgot) 18 U/L 12-42 eGFR Non- 70.5 > 60 eGFR 90.7 > 60 88 Laboratory test 12/05/2010 [facility] CPK (Creatine 102 U/L 0 -[address] Kinase) [place] [address] [phone] Lipid Profile 12/05/2010 [facility] Triglyceride 73 mg/dL 40- 200 (Trig/Chol/HDL) [address] [place] [address] [phone] Cholesterol 152 mg/dL Less Than 200 89 High Density Lipoprotein 40 mg/dL 40-60 90 Cholesterol/HDL Ratio 3.80 AVERAGE 1-4.44 Low Density Lipoprotein 97 mg/dL Less Than 100 91 CBC Auto Diff 12/05/2010 [facility] White Blood 6.5 CUMM 4.8- 10.[address] [place] [address] [phone] Red Cell Count 4.13 CUMM Low 4.2-5.4 Hemoglobin 13.7 g/dL 12.0-16.0 Hematocrit 40 % 35-47 Mean Corpuscular Volume 97 um3 79-97 Mean Corpuscular Hemoglob 33 pg High 27-31 Mean Corpuscular HGB Cone 34 g/dL 32-36 Redcell Distribution WDTH 14 % 10.5-15 Platelet Count 166 CUMM 150-450 Mean Platelet Volume 11.2 um3 High 7.4-10.4 Gran % 62.6 % 38-83 Lymph % 26.8 % 25-47 Mononuclear % 6.9 % 1-9 Eosinophil % 3.2 % 0-6 Basophil % 0.5 % 0-2 Abs Lymphs 1.7 1.0-4.8 Abs Mononuclear 0.5 0-0.8 Absolute Neutrophil Count 4.1 1.5-7.7 Abs Eosinophils 0.2 0-0.6 Abs Basophils 0 0-0.2 Comp Metabolic Panel 12/05/2010 [facility] Sodium 140 mmol/L 135-[address] [place] [address] [phone] Potassium 3.9 mmol/L 3.5-5.0 Chloride 108 mmol/L 101-111 Co2 (Carbon Dioxide) 27.0 mmol/L 22-32 Anion Gap 5.0 mmol/L 2-11 92 Glucose 93 mg/dL 70-100 BUN 16 mg/dL 6-24 Creatinine 0.80 mg/dL 0.50-1.40 One Over Creatinine 1.20 BUN/Creatinine Ratio 20.0 8-20 Calcium 8.9 mg/dL 8.1-9.9 Total Protein 6.5 GM/DL 6.2-8.1 Albumin 3.9 GM/DL 3.2-5.2 Globulin 2.6 GM/DL 2-4 Albumin/Globulin Ratio 1.5 1-3 Bilirubin Total 0.6 mg/dL 0.4-1.5 93 Alkaline Phosphatase 67 U/L 30-110 Alt (SGPT) 15 U/L 14-54 Ast (Sgot) 21 U/L 12-42 eGFR Non- 70.7 > 60 eGFR 90.9 > 60 94 Urine Culture & 08/13/2010 [facility] Urine Culture NG [address] [place] [address] [phone] Urinalysis 08/13/2010 [facility] Ua Color ORANGE Yellow W/Microscopic [address] [place] [address] [phone] Appearance-Urine CLEAR Clear Specific [place]-Ur 1.005 Low 1.010-1.030 Esterase-Urine 3+ Abnormal Negative Nitrite POSITIVE Abnormal Negative [id number] NEGATIVE Negative Protein-Urine NEGATIVE Negative PH-Urine 7.0 5-9 Blood-Urine 2+ Abnormal Negative Ketones-Urine NEGATIVE Negative Bilirubin-Ur NEGATIVE Negative Glucose-Urine NEGATIVE Negative WBC-Urine TNTC Abnormal 0-5 RBC-Urine 5-10 Abnormal 0-2 Epith Cells-Ur RARE None Bacteria-Urine 1+ None Laboratory test 01/06/2010 [facility] Thyroxine Free 0.88 NG/ML 0.61-1.24 finding [address] [place] [address] [phone] TSH 1.48 MIU/ML 0.34-5.60 Laboratory test 10/10/2009 [facility] Alt (SGPT) 15 U/L 14- [address] [place] [address] [phone] Lipid Profile 10/10/2009 [facility] Triglyceride 50 mg/dL 40- 200 (Trig/Chol/HDL) [address] [place] [address] [phone] Cholesterol 151 mg/dL Less Than 200 96 High Density Lipoprotein 47 mg/dL 40-60 97 Cholesterol/HDL Ratio 3.21 AVERAGE 1-4.44 Low Density Lipoprotein 94 mg/dL Less Than 100 98 Comp Metabolic Panel 10/10/2009 [facility] Sodium 138 mmol/L 135-[address] [place] [address] [phone] Potassium 4.0 mmol/L 3.5-5.0 Chloride 105 mmol/L 101-111 Co2 (Carbon Dioxide) 28.0 mmol/L 22-32 Anion Gap 5.0 mmol/L 2-11 99 Glucose 96 mg/dL 70-100 100 BUN 10 mg/dL 6-24 Creatinine 0.80 mg/dL 0.50-1.40 One Over Creatinine 1.20 BUN/Creatinine Ratio 12.5 8-20 Calcium 8.9 mg/dL 8.1-9.9 101 Total Protein 5.8 GM/DL Low 6.2-8.1 Albumin 3.9 GM/DL 3.2-5.2 Globulin 1.9 GM/DL Low 2-4 Albumin/Globulin Ratio 2.1 1-3 Bilirubin Total 0.5 mg/dL 0.4-1.5 102 Alkaline Phosphatase 55 U/L 30-110 Ast (Sgot) 23 U/L 12-42 eGFR Non- 75.4 > 60 eGFR 91.2 > 60 103 Lipid Panel - 10/10/2009 [facility] CPK (Creatine 125 U/L 0- [address] Kinase) [place] [address] [phone] Lipid Panel - 06/12/2009 [facility] CPK (Creatine 145 U/L 0- [address] Kinase) [place] [address] [phone] Comp Metabolic 06/12/2009 [facility] Sodium 136 135-[address] mmol/[place] [address] [phone] Potassium 4.5 mmol/L 3.5-5.0 Chloride 103 mmol/L 101-111 Co2 (Carbon Dioxide) 29.0 mmol/L 22-32 Anion Gap 4.0 mmol/L 2-11 104 Glucose 100 mg/dL 70-100 105 BUN 12 mg/dL 6-24 Creatinine 0.90 mg/dL 0.50-1.40 One Over Creatinine 1.10 BUN/Creatinine Ratio 13.3 8-20 Calcium 9.1 mg/dL 8.1-9.9 106 Total Protein 6.3 GM/DL 6.2-8.1 Albumin 3.8 GM/DL 3.2-5.2 Globulin 2.5 GM/DL 2-4 Albumin/Globulin Ratio 1.5 1-3 Bilirubin Total 0.8 mg/dL 0.4-1.5 107 Alkaline Phosphatase 56 U/L 30-110 Alt (SGPT) 20 U/L 14-54 Ast (Sgot) 27 U/L 12-42 eGFR Non- 65.8 > 60 eGFR 79.6 > 60 108 Lipid Profile 06/12/2009 [facility] Triglyceride 60 mg/dL 40- 200 (Trig/Chol/HDL) [address] [place] [address] [phone] Cholesterol 155 mg/dL Less Than 200 109 High Density Lipoprotein 51 mg/dL 40-60 110 Cholesterol/HDL Ratio 3.04 AVERAGE 1-4.44 Low Density Lipoprotein 92 mg/dL Less Than 100 111 Lipid Panel - 03/06/2009 [facility] CPK (Creatine 133 U/L 0- [address] Kinase) [place] [address] [phone] Comp Metabolic 03/06/2009 [facility] Sodium 141 135-[address] mmol/L [place], [place] [id number] [phone] Potassium 4.4 mmol/L 3.5-5.0 Chloride 105 mmol/L 101-111 Co2 (Carbon Dioxide) 30.0 mmol/L 22-32 Anion Gap 6.0 mmol/L 2-11 112 Glucose 94 mg/dL 70-100 113 BUN 12 mg/dL 6-24 Creatinine 0.70 mg/dL 0.50-1.40 One Over Creatinine 1.40 BUN/Creatinine Ratio 17.1 8-20 Calcium 9.1 mg/dL 8.1-9.9 114 Total Protein 6.8 GM/DL 6.2-8.1 Albumin 4.0 GM/DL 3.2-5.2 Globulin 2.8 GM/DL 2-4 Albumin/Globulin Ratio 1.4 1-3 Bilirubin Total 0.9 mg/dL 0.4-1.5 115 Alkaline Phosphatase 66 U/L 30-110 Alt (SGPT) 21 U/L 14-54 Ast (Sgot) 25 U/L 12-42 eGFR Non- 88.2 > 60 eGFR 106.7 > 60 116 Lipid Profile 03/06/2009 [facility] Triglyceride 81 mg/dL 40- 200 (Trig/Chol/HDL) [address] [place] [address] [phone] Cholesterol 187 mg/dL Less Than 200 117 High Density Lipoprotein 54 mg/dL 40-60 118 Cholesterol/HDL Ratio 3.46 AVERAGE 1-4.44 Low Density Lipoprotein 117 mg/dL High Less Than 100 119 CBC With 12/26/2008 [facility] White Blood 5.9 CUMM 4.8-10.8 120 Electronic Diff [address] [place] [address] [phone] Red Cell Count 3.87 CUMM Low 4.2-5.4 Hemoglobin 13.0 g/dL 12.0-16.0 Hematocrit 39 % 35-47 Mean Corpuscular Volume 100 um3 High 79-97 Mean Corpuscular Hemoglob 34 pg High 27-31 Mean Corpuscular HGB Cone 34 g/dL 32-36 Redcell Distribution WDTH 14 % 10.5-15 Platelet Count 154 CUMM 150-450 Mean Platelet Volume 9.7 um3 7.4-10.4 Gran % 63.2 % 38-83 Lymph % 26.0 % 25-47 Mononuclear % 8.9 % 1-9 Eosinophil % 1.5 % 0-6 Basophil % 0.4 % 0-2 Abs Lymphs 1.5 1.0-4.8 Abs Mononuclear 0.5 0-0.8 Absolute Neutrophil Count 3.8 1.5-7.7 Abs Eosinophils 0.1 0-0.6 Abs Basophils 0 0-0.2 Comp Metabolic Panel 12/26/2008 [facility] Sodium 138 mmol/L 135-[address] [place] [address] [phone] Potassium 4.7 mmol/L 3.5-5.0 Chloride 102 mmol/L 101-111 Co2 (Carbon Dioxide) 30.0 mmol/L 22-32 Anion Gap 6.0 mmol/L 2-11 121 Glucose 92 mg/dL 70-100 122 BUN 14 mg/dL 6-24 Creatinine 0.72 mg/dL 0.50-1.40 One Over Creatinine 1.30 BUN/Creatinine Ratio 19.4 8-20 Calcium 8.8 mg/dL 8.1-9.9 123 Total Protein 6.8 GM/DL 6.2-8.1 Albumin 3.7 GM/DL 3.2-5.2 Globulin 3.1 GM/DL 2-4 Albumin/Globulin Ratio 1.2 1-3 Bilirubin Total 0.9 mg/dL 0.4-1.5 124 Alkaline Phosphatase 62 U/L 30-110 Alt (SGPT) 20 U/L 14-54 Ast (Sgot) 24 U/L 12-42 eGFR Non- 85.4 > 60 eGFR 103.3 > 60 125 Lipid Profile 12/26/2008 [facility] Triglyceride 68 mg/dL 40- 200 (Trig/Chol/HDL) [address] [place] [address] [phone] Cholesterol 267 mg/dL High Less Than 200 126 High Density Lipoprotein 48 mg/dL 40-60 127 Cholesterol/HDL Ratio 5.56 AVERAGE High 1-4.44 Low Density Lipoprotein 205 mg/dL High Less Than 100 128 Laboratory test 12/26/2008 [facility] TSH 2.21 MIU/ML 0.34- 5.60 finding [address] [place] [address] [phone] Lipid Profile 10/10/2008 [facility] Triglyceride 65 mg/dL 40- 200 129 (Trig/Chol/HDL) [address] [place] [address] [phone] Cholesterol 149 mg/dL Less Than 200 130 High Density Lipoprotein 46 mg/dL 40-60 131 Cholesterol/HDL Ratio 3.24 AVERAGE 1-4.44 Low Density Lipoprotein 90 mg/dL Less Than 100 132 Liver Function 10/10/2008 [facility] Total Protein 6.1 GM/DL Low 6.2-8.1 Panel [address] [place] [address] [phone] Albumin 3.7 GM/DL 3.2-5.2 Globulin 2.4 GM/DL 2-4 Albumin/Globulin Ratio 1.5 1-3 Bilirubin Total 0.8 mg/dL 0.4-1.5 133 Bilirubin Direct < 0.1 mg/dL Low 0.1-0.5 Indirect Bilirubin (SEE NOTE) mg/dL 0.1-0.75 134 Alkaline Phosphatase 66 U/L 30-110 Alt (SGPT) 19 U/L 14-54 Ast (Sgot) 23 U/L - Lipid Profile 04/24/2008 [facility] Triglyceride 52 mg/dL 40- 200 (Trig/Chol/HDL) [address] [place] [address] [phone] Cholesterol 132 mg/dL Less Than 200 135 High Density Lipoprotein 43 mg/dL 40-60 136 Cholesterol/HDL Ratio 3.07 AVERAGE 1-4.44 Low Density Lipoprotein 79 mg/dL Less Than 100 137 Comp Metabolic Panel 04/24/2008 [facility] Sodium 136 mmol/L 135-[address] [place] [address] [phone] Potassium 4.7 mmol/L 3.5-5.0 Chloride 105 mmol/L 101-111 Co2 (Carbon Dioxide) 29.0 mmol/L 22-32 Anion Gap 2.0 mmol/L 2-11 138 Glucose 93 mg/dL 70-100 139 BUN 11 mg/dL 6-24 Creatinine 0.80 mg/dL 0.50-1.40 One Over Creatinine 1.20 BUN/Creatinine Ratio 13.8 8-20 Calcium 8.7 mg/dL 8.1-9.9 140 Total Protein 6.0 GM/DL Low 6.2-8.1 Albumin 3.4 GM/DL 3.2-5.2 Globulin 2.6 GM/DL 2-4 Albumin/Globulin Ratio 1.3 1-3 Bilirubin Total 0.7 mg/dL 0.4-1.5 Alkaline Phosphatase 62 U/L 30-110 Alt (SGPT) 19 U/L 14-54 Ast (Sgot) 23 U/L Lipid Panel - 04/24/2008 [facility] CPK (Creatine 90 U/L 0- [address] Kinase) [place] [address] [phone] Lipid Panel - 01/31/2008 [facility] CPK (Creatine 93 U/L 0- [address] Kinase) [place] [address] [phone] Comp Metabolic 01/31/2008 [facility] Sodium 139 135-[address] mmol/[place] [address] [phone] Potassium 4.1 mmol/L 3.5-5.0 Chloride 105 mmol/L 101-111 Co2 (Carbon Dioxide) 29.0 mmol/L 22-32 Anion Gap 5.0 mmol/L 2-11 141 Glucose 92 mg/dL 70-100 142 BUN 12 mg/dL 6-24 Creatinine 0.8 mg/dL 0.5-1.4 One Over Creatinine 1.25 BUN/Creatinine Ratio 15.0 8-20 Calcium 8.6 mg/dL 8.1-9.9 143 Total Protein 6.4 GM/DL 6.2-8.1 Albumin 3.8 GM/DL 3.2-5.2 Globulin 2.6 GM/DL 2-4 Albumin/Globulin Ratio 1.5 1-3 Bilirubin Total 0.8 mg/dL 0.4-1.5 Alkaline Phosphatase 64 U/L 30-110 Alt (SGPT) 21 U/L 14-54 Ast (Sgot) 24 U/L 12-42 Lipid Profile 01/31/2008 [facility] Triglyceride 57 mg/dL 40- 200 (Trig/Chol/HDL) [address] [place] [address] [phone] Cholesterol 142 mg/dL Less Than 200 144 High Density Lipoprotein 35 mg/dL Low 40-60 145 Cholesterol/HDL Ratio 4.06 AVERAGE 1-4.44 Low Density Lipoprotein 96 mg/dL Less Than 100 146 CBC With 10/13/2007 [facility] White Blood 5.2 CUMM 4.8-10.8 Electronic Diff [address] [place] [address] [phone] Red Cell Count 4.06 CUMM Low 4.2-5.4 Hemoglobin 13.5 g/dL 12.0-16.0 Hematocrit 40 % 35-47 Mean Corpuscular Volume 98 um3 High 79-97 Mean Corpuscular Hemoglob 33 pg High 27-31 Mean Corpuscular HGB Cone 34 g/dL 32-36 Redcell Distribution WDTH 14 % 10.5-15 Platelet Count 164 CUMM 150-450 Mean Platelet Volume 11.2 um3 High 7.4-10.4 Gran % 50.3 % 38-83 Lymph % 36.3 % 20-45 Mononuclear % 9.8 % High 1-9 Eosinophil % 3.1 % 0-6 Basophil % 0.5 % 0-2 Abs Lymphs 1.9 1.0-4.8 Abs Mononuclear 0.5 0-0.8 Absolute Neutrophil Count 2.6 1.5-7.7 Abs Eosinophils 0.2 0-0.6 Abs Basophils 0 0-0.2 Comp Metabolic Panel 10/13/2007 [facility] Sodium 136 mmol/L 135-145 [address] [place] [address] [phone] Potassium 4.1 mmol/L 3.5-5.0 Chloride 109 mmol/L 101-111 Co2 (Carbon Dioxide) 31.0 mmol/L 22-32 Anion Gap -4.0 mmol/L Low 2-11 147 Glucose 97 mg/dL 70-105 BUN 13 mg/dL 6-24 Creatinine 0.9 mg/dL 0.5-1.4 One Over Creatinine 1.11 BUN/Creatinine Ratio 14.4 8-20 Calcium 8.4 mg/dL 8.1-9.9 148 Total Protein 6.7 GM/DL 6.2-8.1 Albumin 3.8 GM/DL 3.2-5.2 Globulin 2.9 GM/DL 2-4 Albumin/Globulin Ratio 1.3 1-3 Bilirubin Total 0.7 mg/dL 0.4-1.5 Alkaline Phosphatase 63 U/L 30-110 Alt (SGPT) 24 U/L 14-54 Ast (Sgot) 30 U/L 12-42 Lipid Profile 10/13/2007 [facility] Triglyceride 56 mg/dL 40- 200 (Trig/Chol/HDL) [address] [place] [address] [phone] Cholesterol 120 mg/dL Less Than 200 149 High Density Lipoprotein 40 mg/dL 40-60 150 Cholesterol/HDL Ratio 3.00 AVERAGE 1-4.44 Low Density Lipoprotein 69 mg/dL Less Than 100 151 Laboratory test 10/13/2007 [facility] TSH 2.97 MIU/ML 0.34- 5.[address] [place] [address] [phone] Lipid Panel - 08/01/2007 [facility] CPK (Creatine 114 U/L 0- [address] Kinase) [place] [address] [phone] Comp Metabolic 08/01/2007 [facility] One Over 1.[address] [place] [address] [phone] Anion Gap 3.0 mmol/L 2-11 152 Albumin/Globulin Ratio 1.2 1-3 Albumin 3.6 GM/DL 3.2-5.2 Alkaline Phosphatase 61 U/L 30-110 Alt (SGPT) 24 U/L 14-54 Ast (Sgot) 25 U/L 12-42 BUN 18 mg/dL 6-24 Calcium 8.7 mg/dL 8.7-10.2 Chloride 105 mmol/L 101-111 Co2 (Carbon Dioxide) 31.0 mmol/L 22-32 Globulin 3.0 GM/DL 2-4 Glucose 92 mg/dL 70-105 Potassium 4.5 mmol/L 3.5-5.0 Sodium 139 mmol/L 135-145 Bilirubin Total 0.9 mg/dL 0.4-1.5 Total Protein 6.6 GM/DL 6.2-8.1 BUN/Creatinine Ratio 20.0 8-20 Creatinine 0.9 mg/dL 0.5-1.4 Lipid Profile 08/01/2007 [facility] Cholesterol/HDL 3.40 1- 4.44 (Trig/Chol/HDL) [address] [place] [address] [phone] Cholesterol 136 mg/dL Less Than 200 153 Triglyceride 66 mg/dL 40-200 High Density Lipoprotein 40 mg/dL 40-60 Low Density Lipoprotein 83 mg/dL Less Than 100 154 Laboratory test 03/09/2007 [facility] TSH 3.17 MIU/ML 0.34- 5.60 [address] [place] [address] [phone] CBC W/ 03/09/2007 [facility] White Blood 6.0 CUMM 4.8-10.8 [address] [place] [address] [phone] Abs Basophils 0 0-0.2 Abs Eosinophils 0.1 0-0.6 Absolute Neutrophil Count 3.4 1.5-7.7 Abs Lymphs 1.9 1.0-4.8 Abs Mononuclear 0.6 0-0.8 Basophil % 0.2 % 0-2 Hematocrit 42 % 35-47 Hemoglobin 13.7 g/dL 12.0-16.0 Eosinophil % 2.5 % 0-6 Gran % 56.2 % 38-83 Lymph % 31.2 % 20-45 Mean Corpuscular HGB Cone 33 g/dL 32-36 Mean Corpuscular Hemoglob 32 pg High 27-31 Mean Corpuscular Volume 97 um3 79-97 Mean Platelet Volume 10.2 um3 7.4-10.4 Mononuclear % 9.9 % High 1-9 Platelet Count 190 CUMM 150-450 Red Cell Count 4.35 CUMM 4.2-5.4 Redcell Distribution WDTH 13 % 10.5-15 Lipid Profile 03/09/2007 [facility] Cholesterol/HDL 3.00 1- 4.44 157 (Trig/Chol/HDL) [address] Ratio AVERAGE [place], [place] [id number] [phone] Cholesterol 114 mg/dL Less Than 200 158 Triglyceride 61 mg/dL 40-200 High Density Lipoprotein 38 mg/dL Low 40-60 159 Low Density Lipoprotein 64 mg/dL Less Than 100 160 Comp Metabolic Panel 03/09/2007 [facility] One Over Creatinine 1.[address] [place], [place] [id number] [phone] Anion Gap 4.0 mmol/L 2-11 161 Albumin/Globulin Ratio 1.2 1-3 Albumin 3.9 GM/DL 3.2-5.2 Alkaline Phosphatase 68 U/L 30-110 Alt (SGPT) 23 U/L 14-54 Ast (Sgot) 24 U/L 12-42 BUN 22 mg/dL 6-24 Calcium 9.0 mg/dL 8.7-10.2 Chloride 105 mmol/L 101-111 Co2 (Carbon Dioxide) 29.0 mmol/L 22-32 Globulin 3.3 GM/DL 2-4 Glucose 97 mg/dL 70-105 Potassium 4.6 mmol/L 3.5-5.0 Sodium 138 mmol/L 135-145 Bilirubin Total 1.0 mg/dL 0.4-1.5 Total Protein 7.2 GM/DL 6.2-8.1 BUN/Creatinine Ratio 22.0 High 8-20 Creatinine 1.0 mg/dL 0.5-1.4 Lipid Panel - [facility] 03/09/2007 [facility] CPK (Creatine 122 U/L 0-[address] Kinase) [place] [address] [phone] Lipid Panel - [facility] 12/08/2006 [facility] CPK (Creatine 90 U/L 0-[address] Kinase) [place] [address] [phone] Comp Metabolic 12/08/2006 [facility] One Over 1.[address] [place] [address] [phone] Anion Gap 6.0 mmol/L 2-11 162 Albumin/Globulin Ratio 1.2 1-3 Albumin 3.8 GM/DL 3.2-5.2 Alkaline Phosphatase 64 U/L 30-110 Alt (SGPT) 19 U/L 14-54 Ast (Sgot) 23 U/L 12-42 BUN 20 mg/dL 6-24 Calcium 8.9 mg/dL 8.7-10.2 Chloride 104 mmol/L 101-111 Co2 (Carbon Dioxide) 28.0 mmol/L 22-32 Globulin 3.3 GM/DL 2-4 Glucose 104 mg/dL 70-105 Potassium 4.8 mmol/L 3.5-5.0 Sodium 138 mmol/L 135-145 Bilirubin Total 0.9 mg/dL 0.4-1.5 Total Protein 7.1 GM/DL 6.2-8.1 BUN/Creatinine Ratio 20.0 8-20 Creatinine 1.0 mg/dL 0.5-1.4 Lipid Profile 12/08/2006 [facility] Cholesterol/HDL 3.46 1- 4.44 (Trig/Chol/HDL) [address] Ratio AVERAGE [place], [place] [id number] [phone] Cholesterol 135 mg/dL Less Than 200 163 Triglyceride 72 mg/dL 40-200 High Density Lipoprotein 39 mg/dL Low 40-60 164 Low Density Lipoprotein 82 mg/dL Less Than 100 165 Lipid Profile 10/07/2005 [facility] Cholesterol 124 mg/dL Less 166, (Trig/Chol/HDL) [address] Than [address] [place] [address] [phone] Triglyceride 62 mg/dL 40-200 High Density Lipoprotein 38 mg/dL Low 40-60 168 Low Density Lipoprotein 74 mg/dL Less Than 100 169 Cholesterol/HDL Ratio 3.26 AVERAGE 1-4.44 Liver Function 10/07/2005 [facility] Albumin/Globulin Ratio 1.4 1-[address] [place] [address] [phone] Albumin 3.9 GM/DL 3.2-5.2 Alkaline Phosphatase 69 U/L 30-110 Alt (SGPT) 23 U/L 14-54 Ast (Sgot) 25 U/L 12-42 Bilirubin Direct 0.1 mg/dL 0.1-0.5 Globulin 2.7 GM/DL 2-4 Indirect Bilirubin 0.6 mg/dL 0.1-0.75 Bilirubin Total 0.7 mg/dL 0.4-1.5 Total Protein 6.6 GM/DL 6.2-8.1 1 Because ethnic data is not always readily available, this report includes an eGFR for both -Americans and non- Americans. The National Kidney Disease Education Program (NKDEP) does not endorse the use of the MDRD equation for patients that are not between the ages of 18 and 70, are , have extremes of body size, muscle mass, or nutritional status, or are non- or non-. According to the National Kidney Foundation, irrespective of diagnosis, the stage of the disease is based on the level of kidney function: Stage Description GFR(mL/min/1.73 m(2)) 1 Kidney damage with normal or decreased GFR 90 2 Kidney damage with mild decrease in GFR 60-89 3 Moderate decrease in GFR 30-59 4 Severe decrease in GFR 15-29 5 Kidney failure <15 (or dialysis) 2 Desirable: <150 Borderline High: 150-199 High: 200-499 Very High: >500 3 Desirable: <200 Borderline High: 200-239 High: >239 4 Low: <40 Desirable: 40-60 High: >60 5 Desirable: <100 Near Optimal: 100-129 Borderline High: 130-159 High: 160-189 Very High: >189 6 Feed Project Engineer: [id number] Because ethnic data is not always readily available, this report includes an eGFR for both -Americans and non- Americans. The National Kidney Disease Education Program (NKDEP) does not endorse the use of the MDRD equation for patients that are not between the ages of 18 and 70, are , have extremes of body size, muscle mass, or nutritional status, or are non- or non-. According to the National Kidney Foundation, irrespective of diagnosis, the stage of the disease is based on the level of kidney function: Stage Description GFR(mL/min/1.73 m(2)) 1 Kidney damage with normal or decreased GFR 90 2 Kidney damage with mild decrease in GFR 60-89 3 Moderate decrease in GFR 30-59 4 Severe decrease in GFR 15-29 5 Kidney failure <15 (or dialysis) 8 Because ethnic data is not always readily available, this report includes an eGFR for both -Americans and non- Americans. The National Kidney Disease Education Program (NKDEP) does not endorse the use of the MDRD equation for patients that are not between the ages of 18 and 70, are , have extremes of body size, muscle mass, or nutritional status, or are non- or non-. According to the National Kidney Foundation, irrespective of diagnosis, the stage of the disease is based on the level of kidney function: Stage Description GFR(mL/min/1.73 m(2)) 1 Kidney damage with normal or decreased GFR 90 2 Kidney damage with mild decrease in GFR 60-89 3 Moderate decrease in GFR 30-59 4 Severe decrease in GFR 15-29 5 Kidney failure <15 (or dialysis) 9 Desirable: <150 Borderline High: 150-199 High: 200-499 Very High: >500 10 Desirable: <200 Borderline High: 200-239 High: >239 11 Low: <40 Desirable: 40-60 High: >60 12 Desirable: <100 Near Optimal: 100-129 Borderline High: 130-159 High: 160-189 Very High: >189 13 REFERENCE VALUE 70-750 (Supine) 200-1700 (Standing) 14 REFERENCE VALUE <111 (Supine) <141 (Standing) 15 REFERENCE VALUE <30 (no postural change) ADDITIONAL INFORMATION PLEASE NOTE: High/Low flagging is based on supine normal values. This test was developed and its performance characteristics determined by [facility] in a manner consistent with CLIA requirements. This test has not been cleared or approved by the U.S. Food and Drug Administration. Test Performed by: [facility] [address] [place] [address] 16 FASTING 17 FASTING 18 FASTING 19 FASTING 20 AM 8.7-22.4 PM <10 21 Because ethnic data is not always readily available, this report includes an eGFR for both -Americans and non- Americans. The National Kidney Disease Education Program (NKDEP) does not endorse the use of the MDRD equation for patients that are not between the ages of 18 and 70, are , have extremes of body size, muscle mass, or nutritional status, or are non- or non-. According to the National Kidney Foundation, irrespective of diagnosis, the stage of the disease is based on the level of kidney function: Stage Description GFR(mL/min/1.73 m(2)) 1 Kidney damage with normal or decreased GFR 90 2 Kidney damage with mild decrease in GFR 60-89 3 Moderate decrease in GFR 30-59 4 Severe decrease in GFR 15-29 5 Kidney failure <15 (or dialysis) 22 Desirable: <150 Borderline High: 150-199 High: 200-499 Very High: >500 23 Desirable: <200 Borderline High: 200-239 High: >239 24 Low: <40 Desirable: 40-60 High: >60 25 Desirable: <100 Near Optimal: 100-129 Borderline High: 130-159 High: 160-189 Very High: >189 26 Desirable: <150 Borderline High: 150-199 High: 200-499 Very High: >500 27 Desirable: <200 Borderline High: 200-239 High: >239 28 Low: <40 Desirable: 40-60 High: >60 29 Desirable: <100 Near Optimal: 100-129 Borderline High: 130-159 High: 160-189 Very High: >189 30 Because ethnic data is not always readily available, this report includes an eGFR for both -Americans and non- Americans. The National Kidney Disease Education Program (NKDEP) does not endorse the use of the MDRD equation for patients that are not between the ages of 18 and 70, are , have extremes of body size, muscle mass, or nutritional status, or are non- or non-. According to the National Kidney Foundation, irrespective of diagnosis, the stage of the disease is based on the level of kidney function: Stage Description GFR(mL/min/1.73 m(2)) 1 Kidney damage with normal or decreased GFR 90 2 Kidney damage with mild decrease in GFR 60-89 3 Moderate decrease in GFR 30-59 4 Severe decrease in GFR 15-29 5 Kidney failure <15 (or dialysis) 31 Because ethnic data is not always readily available, this report includes an eGFR for both -Americans and non- Americans. The National Kidney Disease Education Program (NKDEP) does not endorse the use of the MDRD equation for patients that are not between the ages of 18 and 70, are , have extremes of body size, muscle mass, or nutritional status, or are non- or non-. According to the National Kidney Foundation, irrespective of diagnosis, the stage of the disease is based on the level of kidney function: Stage Description GFR(mL/min/1.73 m(2)) 1 Kidney damage with normal or decreased GFR 90 2 Kidney damage with mild decrease in GFR 60-89 3 Moderate decrease in GFR 30-59 4 Severe decrease in GFR 15-29 5 Kidney failure <15 (or dialysis) 32 Because ethnic data is not always readily available, this report includes an eGFR for both -Americans and non- Americans. The National Kidney Disease Education Program (NKDEP) does not endorse the use of the MDRD equation for patients that are not between the ages of 18 and 70, are , have extremes of body size, muscle mass, or nutritional status, or are non- or non-. According to the National Kidney Foundation, irrespective of diagnosis, the stage of the disease is based on the level of kidney function: Stage Description GFR(mL/min/1.73 m(2)) 1 Kidney damage with normal or decreased GFR 90 2 Kidney damage with mild decrease in GFR 60-89 3 Moderate decrease in GFR 30-59 4 Severe decrease in GFR 15-29 5 Kidney failure <15 (or dialysis) 33 Desirable <150 Borderline high 150-199 High 200-499 Very High >500 34 Desirable <200 Borderline high 200-239 High >239 35 Low <40 Desirable: 40-60 High: >60 36 Desirable: <100 mg/dL Near Optimal: 100-129 mg/dL Borderline High: 130-159 mg/dL High: 160-189 mg/dL Very High: >189 mg/dL 37 FASTING cc pmd 38 FASTING cc pmd 39 FASTING cc pmd 40 Desirable <150 Borderline high 150-199 High 200-499 Very High >500 41 Desirable <200 Borderline high 200-239 High >239 42 Low <40 Desirable: 40-60 High: >60 43 Desirable: <100 mg/dL Near Optimal: 100-129 mg/dL Borderline High: 130-159 mg/dL High: 160-189 mg/dL Very High: >189 mg/dL 44 Because ethnic data is not always readily available, this report includes an eGFR for both -Americans and non- Americans. The National Kidney Disease Education Program (NKDEP) does not endorse the use of the MDRD equation for patients that are not between the ages of 18 and 70, are , have extremes of body size, muscle mass, or nutritional status, or are non- or non-. According to the National Kidney Foundation, irrespective of diagnosis, the stage of the disease is based on the level of kidney function: Stage Description GFR(mL/min/1.73 m(2)) 1 Kidney damage with normal or decreased GFR 90 2 Kidney damage with mild decrease in GFR 60-89 3 Moderate decrease in GFR 30-59 4 Severe decrease in GFR 15-29 5 Kidney failure <15 (or dialysis) 45 FASTING cc pmd 46 cc pmd in 3-4 weeks cc pmd 47 Because ethnic data is not always readily available, this report includes an eGFR for both -Americans and non- Americans. The National Kidney Disease Education Program (NKDEP) does not endorse the use of the MDRD equation for patients that are not between the ages of 18 and 70, are , have extremes of body size, muscle mass, or nutritional status, or are non- or non-. According to the National Kidney Foundation, irrespective of diagnosis, the stage of the disease is based on the level of kidney function: Stage Description GFR(mL/min/1.73 m(2)) 1 Kidney damage with normal or decreased GFR 90 2 Kidney damage with mild decrease in GFR 60-89 3 Moderate decrease in GFR 30-59 4 Severe decrease in GFR 15-29 5 Kidney failure <15 (or dialysis) 48 Desirable <150 Borderline high 150-199 High 200-499 Very High >500 49 Desirable <200 Borderline high 200-239 High >239 50 Low <40 Desirable: 40-60 High: >60 51 Desirable: <100 mg/dL Near Optimal: 100-129 mg/dL Borderline High: 130-159 mg/dL High: 160-189 mg/dL Very High: >189 mg/dL 52 cc pmd in 3-4 weeks cc pmd 53 Because ethnic data is not always readily available, this report includes an eGFR for both -Americans and non- Americans. The National Kidney Disease Education Program (NKDEP) does not endorse the use of the MDRD equation for patients that are not between the ages of 18 and 70, are , have extremes of body size, muscle mass, or nutritional status, or are non- or non-. According to the National Kidney Foundation, irrespective of diagnosis, the stage of the disease is based on the level of kidney function: Stage Description GFR(mL/min/1.73 m(2)) 1 Kidney damage with normal or decreased GFR 90 2 Kidney damage with mild decrease in GFR 60-89 3 Moderate decrease in GFR 30-59 4 Severe decrease in GFR 15-29 5 Kidney failure <15 (or dialysis) 54 Normal Range 180 to 914 Indeterminate Range 145 to 180 Deficient Range <145 55 Because ethnic data is not always readily available, this report includes an eGFR for both -Americans and non- Americans. The National Kidney Disease Education Program (NKDEP) does not endorse the use of the MDRD equation for patients that are not between the ages of 18 and 70, are , have extremes of body size, muscle mass, or nutritional status, or are non- or non-. According to the [employer], irrespective of diagnosis, the stage of the disease is based on the level of kidney function: Stage Description GFR(mL/min/1.73 m(2)) 1 Kidney damage with normal or decreased GFR 90 2 Kidney damage with mild decrease in GFR 60-89 3 Moderate decrease in GFR 30-59 4 Severe decrease in GFR 15-29 5 Kidney failure <15 (or dialysis) 56 Because ethnic data is not always readily available, this report includes an eGFR for both -Americans and non- Americans. The National Kid[employer] Disease Education Program (NKDEP) does not endorse the use of the MDRD equation for patients that are not between the ages of 18 and 70, are , have extremes of body size, muscle mass, or nutritional status, or are non- or non-. According to the [employer], irrespective of diagnosis, the stage of the disease is based on the level of kidney function: Stage Description GFR(mL/min/1.73 m(2)) 1 Kidney damage with normal or decreased GFR 90 2 Kidney damage with mild decrease in GFR 60-89 3 Moderate decrease in GFR 30-59 4 Severe decrease in GFR 15-29 5 Kidney failure <15 (or dialysis) 57 Potassium reference range changed effective 03/11/14 58 Because ethnic data is not always readily available, this report includes an eGFR for both -Americans and non- Americans. The National Kid[employer] Disease Education Program (NKDEP) does not endorse the use of the MDRD equation for patients that are not between the ages of 18 and 70, are , have extremes of body size, muscle mass, or nutritional status, or are non- or non-. According to the National [employer], irrespective of diagnosis, the stage of the disease is based on the level of kidney function: Stage Description GFR(mL/min/1.73 m(2)) 1 Kidney damage with normal or decreased GFR 90 2 Kidney damage with mild decrease in GFR 60-89 3 Moderate decrease in GFR 30-59 4 Severe decrease in GFR 15-29 5 Kidney failure <15 (or dialysis) 59 Because ethnic data is not always readily available, this report includes an eGFR for both -Americans and non- Americans. The National Kid[employer] Disease Education Program (NKDEP) does not endorse the use of the MDRD equation for patients that are not between the ages of 18 and 70, are , have extremes of body size, muscle mass, or nutritional status, or are non- or non-. According to the National [employer], irrespective of diagnosis, the stage of the disease is based on the level of kidney function: Stage Description GFR(mL/min/1.73 m(2)) 1 Kidney damage with normal or decreased GFR 90 2 Kidney damage with mild decrease in GFR 60-89 3 Moderate decrease in GFR 30-59 4 Severe decrease in GFR 15-29 5 Kidney failure <15 (or dialysis) 60 Because ethnic data is not always readily available, this report includes an eGFR for both -Americans and non- Americans. The National Kidney Disease Education Program (NKDEP) does not endorse the use of the MDRD equation for patients that are not between the ages of 18 and 70, are , have extremes of body size, muscle mass, or nutritional status, or are non- or non-. According to the National [employer], irrespective of diagnosis, the stage of the disease is based on the level of kidney function: Stage Description GFR(mL/min/1.73 m(2)) 1 Kidney damage with normal or decreased GFR 90 2 Kidney damage with mild decrease in GFR 60-89 3 Moderate decrease in GFR 30-59 4 Severe decrease in GFR 15-29 5 Kidney failure <15 (or dialysis) 61 HDL Interpretation: Undesirable: High Risk: Less than 40 MG/DL Desirable: Low Risk: Greater than 60 MG/DL 62 LDL Interpretation: Low Risk Optimal Level: LDL Less than 100 MG/DL Near or Above Optimal: LDL 100-129 MG/DL Borderline High Risk: LDL 130-159 MG/DL High Risk: LDL 160-189 MG/DL Very High Risk: LDL Greater than 189 MG/DL 63 Because ethnic data is not always readily available, this report includes an eGFR for both -Americans and non- Americans. The National Kidney Disease Education Program (NKDEP) does not endorse the use of the MDRD equation for patients that are not between the ages of 18 and 70, are , have extremes of body size, muscle mass, or nutritional status, or are non- or non-. According to the National [employer], irrespective of diagnosis, the stage of the disease is based on the level of kidney function: Stage Description GFR(mL/min/1.73 m(2)) 1 Kidney damage with normal or decreased GFR 90 2 Kidney damage with mild decrease in GFR 60-89 3 Moderate decrease in GFR 30-59 4 Severe decrease in GFR 15-29 5 Kidney failure <15 (or dialysis) 64 Because ethnic data is not always readily available, this report includes an eGFR for both -Americans and non- Americans. The National Kidney Disease Education Program (NKDEP) does not endorse the use of the MDRD equation for patients that are not between the ages of 18 and 70, are , have extremes of body size, muscle mass, or nutritional status, or are non- or non-. According to the National [employer], irrespective of diagnosis, the stage of the disease is based on the level of kidney function: Stage Description GFR(mL/min/1.73 m(2)) 1 Kidney damage with normal or decreased GFR 90 2 Kidney damage with mild decrease in GFR 60-89 3 Moderate decrease in GFR 30-59 4 Severe decrease in GFR 15-29 5 Kidney failure <15 (or dialysis) 65 Levels at the lower end of the range may be needed for symptomatic heart failure and levels at the higher end of the range for rate control. 66 Anion gap measurement may be of limited value in the presence of any alkalosis, especially in a combined acid base disorder. . 67 A metabolite of Naproxen, O-desmethylnaproxen, has been shown to interfere with the [place]cedes method for measuring total bilirubin. Samples from patients who have taken Naproxen have shown spurious elevation in total bilirubin levels. 68 Because ethnic data is not always readily available, this report includes an eGFR for both -Americans and non- Americans. The National Kidney Disease Education Program (NKDEP) does not endorse the use of the MDRD equation for patients that are not between the ages of 18 and 70, are , have extremes of body size, muscle mass, or nutritional status, or are non- or non-. According to the National [employer], irrespective of diagnosis, the stage of the disease is based on the level of kidney function: Stage Description GFR(mL/min/1.73 m(2)) 1 Kidney damage with normal or decreased GFR 90 2 Kidney damage with mild decrease in GFR 60-89 3 Moderate decrease in GFR 30-59 4 Severe decrease in GFR 15-29 5 Kidney failure <15 (or dialysis) 69 CHOLESTEROL INTERPRETATION: Desirable: Less than 200 MG/DL Borderline-High Risk: 200-239 MG/DL High-Risk: 240 MG/DL and over 70 HDL INTERPRETATION: Undesirable: High Risk: Less than 40 MG/DL Desirable: Low Risk: Greater than 60 MG/DL 71 LDL INTERPRETATION: Low Risk Optimal Level: LDL Less than 100 MG/DL Near or Above Optimal: LDL 100-129 MG/DL Borderline High Risk: LDL 130-159 MG/DL High Risk: LDL 160-189 MG/DL Very High Risk: LDL Greater than 189 MG/DL 72 Anion gap measurement may be of limited value in the presence of any alkalosis, especially in a combined acid base disorder. . 73 Because ethnic data is not always readily available, this report includes an eGFR for both -Americans and non- Americans. The National Kidney Disease Education Program (NKDEP) does not endorse the use of the MDRD equation for patients that are not between the ages of 18 and 70, are , have extremes of body size, muscle mass, or nutritional status, or are non- or non-. According to the National [employer], irrespective of diagnosis, the stage of the disease is based on the level of kidney function: Stage Description GFR(mL/min/1.73 m(2)) 1 Kidney damage with normal or decreased GFR 90 2 Kidney damage with mild decrease in GFR 60-89 3 Moderate decrease in GFR 30-59 4 Severe decrease in GFR 15-29 5 Kidney failure <15 (or dialysis) 74 *LEVELS AT THE LOWER END OF THE RANGE MAY BE NEEDED FOR SYMPTOMATIC HEART FAILURE AND LEVELS AT THE HIGHER END OF THE RANGE FOR RATE CONTROL.* 75 *LEVELS AT THE LOWER END OF THE RANGE MAY BE NEEDED FOR SYMPTOMATIC HEART FAILURE AND LEVELS AT THE HIGHER END OF THE RANGE FOR RATE CONTROL.* 76 New Reference Range and Interpretation effective 02/10/2002 TnI (ng/ml) INTERPRETATION Less Than 0.06 ng/mL NOT SUPPORTIVE OF DIAGNOSIS OF NM 0.06 - 0.50 ng/ml INDETERMINATE: SUGGEST SERIAL STUDIES IF CLINICALLY INDICATED. Greater than 0.5 ng/mL CONSISTENT WITH DIAGNOSIS OF NM . 77 Anion gap measurement may be of limited value in the presence of any alkalosis, especially in a combined acid base disorder. . 78 Because ethnic data is not always readily available, this report includes an eGFR for both -Americans and non- Americans. The National Kidney Disease Education Program (NKDEP) does not endorse the use of the MDRD equation for patients that are not between the ages of 18 and 70, are , have extremes of body size, muscle mass, or nutritional status, or are non- or non-. According to the National [employer], irrespective of diagnosis, the stage of the disease is based on the level of kidney function: Stage Description GFR(mL/min/1.73 m(2)) 1 Kidney damage with normal or decreased GFR 90 2 Kidney damage with mild decrease in GFR 60-89 3 Moderate decrease in GFR 30-59 4 Severe decrease in GFR 15-29 5 Kidney failure <15 (or dialysis) 79 *LEVELS AT THE LOWER END OF THE RANGE MAY BE NEEDED FOR SYMPTOMATIC HEART FAILURE AND LEVELS AT THE HIGHER END OF THE RANGE FOR RATE CONTROL.* 80 CHOLESTEROL INTERPRETATION: Desirable: Less than 200 MG/DL Borderline-High Risk: 200-239 MG/DL High-Risk: 240 MG/DL and over 81 HDL INTERPRETATION: Undesirable: High Risk: Less than 40 MG/DL Desirable: Low Risk: Greater than 60 MG/DL 82 LDL INTERPRETATION: Low Risk Optimal Level: LDL Less than 100 MG/DL Near or Above Optimal: LDL 100-129 MG/DL Borderline High Risk: LDL 130-159 MG/DL High Risk: LDL 160-189 MG/DL Very High Risk: LDL Greater than 189 MG/DL 83 CHOLESTEROL INTERPRETATION: Desirable: Less than 200 MG/DL Borderline-High Risk: 200-239 MG/DL High-Risk: 240 MG/DL and over 84 HDL INTERPRETATION: Undesirable: High Risk: Less than 40 MG/DL Desirable: Low Risk: Greater than 60 MG/DL 85 LDL INTERPRETATION: Low Risk Optimal Level: LDL Less than 100 MG/DL Near or Above Optimal: LDL 100-129 MG/DL Borderline High Risk: LDL 130-159 MG/DL High Risk: LDL 160-189 MG/DL Very High Risk: LDL Greater than 189 MG/DL 86 Anion gap measurement may be of limited value in the presence of any alkalosis, especially in a combined acid base disorder. . 87 A metabolite of Naproxen, O-desmethylnaproxen, has been shown to interfere with the [place] method for measuring total bilirubin. Samples from patients who have taken Naproxen have shown spurious elevation in total bilirubin levels. 88 Because ethnic data is not always readily available, this report includes an eGFR for both -Americans and non- Americans. The National Kidney Disease Education Program (NKDEP) does not endorse the use of the MDRD equation for patients that are not between the ages of 18 and 70, are , have extremes of body size, muscle mass, or nutritional status, or are non- or non-. According to the National [employer], irrespective of diagnosis, the stage of the disease is based on the level of kidney function: Stage Description GFR(mL/min/1.73 m(2)) 1 Kidney damage with normal or decreased GFR 90 2 Kidney damage with mild decrease in GFR 60-89 3 Moderate decrease in GFR 30-59 4 Severe decrease in GFR 15-29 5 Kidney failure <15 (or dialysis) 89 CHOLESTEROL INTERPRETATION: Desirable: Less than 200 MG/DL Borderline-High Risk: 200-239 MG/DL High-Risk: 240 MG/DL and over 90 HDL INTERPRETATION: Undesirable: High Risk: Less than 40 MG/DL Desirable: Low Risk: Greater than 60 MG/DL 91 LDL INTERPRETATION: Low Risk Optimal Level: LDL Less than 100 MG/DL Near or Above Optimal: LDL 100-129 MG/DL Borderline High Risk: LDL 130-159 MG/DL High Risk: LDL 160-189 MG/DL Very High Risk: LDL Greater than 189 MG/DL 92 Anion gap measurement may be of limited value in the presence of any alkalosis, especially in a combined acid base disorder. . 93 A metabolite of Naproxen, O-desmethylnaproxen, has been shown to interfere with the Jendrassik-Mercedes method for measuring total bilirubin. Samples from patients who have taken Naproxen have shown spurious elevation in total bilirubin levels. 94 Because ethnic data is not always readily available, this report includes an eGFR for both -Americans and non- Americans. The National Kidney Disease Education Program (NKDEP) does not endorse the use of the MDRD equation for patients that are not between the ages of 18 and 70, are , have extremes of body size, muscle mass, or nutritional status, or are non- or non-. According to the National Kid[employer], irrespective of diagnosis, the stage of the disease is based on the level of kidney function: Stage Description GFR(mL/min/1.73 m(2)) 1 Kidney damage with normal or decreased GFR 90 2 Kidney damage with mild decrease in GFR 60-89 3 Moderate decrease in GFR 30-59 4 Severe decrease in GFR 15-29 5 Kidney failure <15 (or dialysis) 95 FINAL: NO GROWTH DAY 2 (<1,000 CFU/mL) 96 CHOLESTEROL INTERPRETATION: Desirable: Less than 200 MG/DL Borderline-High Risk: 200-239 MG/DL High-Risk: 240 MG/DL and over 97 HDL INTERPRETATION: Undesirable: High Risk: Less than 40 MG/DL Desirable: Low Risk: Greater than 60 MG/DL 98 LDL INTERPRETATION: Low Risk Optimal Level: LDL Less than 100 MG/DL Near or Above Optimal: LDL 100-129 MG/DL Borderline High Risk: LDL 130-159 MG/DL High Risk: LDL 160-189 MG/DL Very High Risk: LDL Greater than 189 MG/DL 99 Anion gap measurement may be of limited value in the presence of any alkalosis, especially in a combined acid base disorder. . 100 Note change in reference range as of 12/29/07. The change was based on recommendations from the [place] [employer]. 101 Please note change in reference range effective 07 . 102 A metabolite of Naproxen, O-desmethylnaproxen, has been shown to interfere with the Jendrassik-Mercedes method for measuring total bilirubin. Samples from patients who have taken Naproxen have shown spurious elevation in total bilirubin levels. 103 Because ethnic data is not always readily available, this report includes an eGFR for both -Americans and non- Americans. The National Kid[employer] Disease Education Program (NKDEP) does not endorse the use of the MDRD equation for patients that are not between the ages of 18 and 70, are , have extremes of body size, muscle mass, or nutritional status, or are non- or non-. According to the National [employer], irrespective of diagnosis, the stage of the disease is based on the level of kidney function: Stage Description GFR(mL/min/1.73 m(2)) 1 Kidney damage with normal or decreased GFR 90 2 Kidney damage with mild decrease in GFR 60-89 3 Moderate decrease in GFR 30-59 4 Severe decrease in GFR 15-29 5 Kidney failure <15 (or dialysis) 104 Anion gap measurement may be of limited value in the presence of any alkalosis, especially in a combined acid base disorder. . 105 Note change in reference range as of 12/29/07. The change was based on recommendations from the [place] [employer]. 106 Please note change in reference range effective 07 . 107 A metabolite of Naproxen, O-desmethylnaproxen, has been shown to interfere with the [place] method for measuring total bilirubin. Samples from patients who have taken Naproxen have shown spurious elevation in total bilirubin levels. 108 Because ethnic data is not always readily available, this report includes an eGFR for both -Americans and non- Americans. The National Kid[employer] Disease Education Program (NKDEP) does not endorse the use of the MDRD equation for patients that are not between the ages of 18 and 70, are , have extremes of body size, muscle mass, or nutritional status, or are non- or non-. According to the National [employer], irrespective of diagnosis, the stage of the disease is based on the level of kidney function: Stage Description GFR(mL/min/1.73 m(2)) 1 Kidney damage with normal or decreased GFR 90 2 Kidney damage with mild decrease in GFR 60-89 3 Moderate decrease in GFR 30-59 4 Severe decrease in GFR 15-29 5 Kidney failure <15 (or dialysis) 109 CHOLESTEROL INTERPRETATION: Desirable: Less than 200 MG/DL Borderline-High Risk: 200-239 MG/DL High-Risk: 240 MG/DL and over 110 HDL INTERPRETATION: Undesirable: High Risk: Less than 40 MG/DL Desirable: Low Risk: Greater than 60 MG/DL 111 LDL INTERPRETATION: Low Risk Optimal Level: LDL Less than 100 MG/DL Near or Above Optimal: LDL 100-129 MG/DL Borderline High Risk: LDL 130-159 MG/DL High Risk: LDL 160-189 MG/DL Very High Risk: LDL Greater than 189 MG/DL 112 Anion gap measurement may be of limited value in the presence of any alkalosis, especially in a combined acid base disorder. . 113 Note change in reference range as of 12/29/07. The change was based on recommendations from the [place] [employer]. 114 Please note change in reference range effective 07 . 115 A metabolite of Naproxen, O-desmethylnaproxen, has been shown to interfere with the [place] method for measuring total bilirubin. Samples from patients who have taken Naproxen have shown spurious elevation in total bilirubin levels. 116 Because ethnic data is not always readily available, this report includes an eGFR for both -Americans and non- Americans. The National Kid[employer] Disease Education Program (NKDEP) does not endorse the use of the MDRD equation for patients that are not between the ages of 18 and 70, are , have extremes of body size, muscle mass, or nutritional status, or are non- or non-. According to the National [employer], irrespective of diagnosis, the stage of the disease is based on the level of kidney function: Stage Description GFR(mL/min/1.73 m(2)) 1 Kidney damage with normal or decreased GFR 90 2 Kidney damage with mild decrease in GFR 60-89 3 Moderate decrease in GFR 30-59 4 Severe decrease in GFR 15-29 5 Kidney failure <15 (or dialysis) 117 CHOLESTEROL INTERPRETATION: Desirable: Less than 200 MG/DL Borderline-High Risk: 200-239 MG/DL High-Risk: 240 MG/DL and over 118 HDL INTERPRETATION: Undesirable: High Risk: Less than 40 MG/DL Desirable: Low Risk: Greater than 60 MG/DL 119 LDL INTERPRETATION: Low Risk Optimal Level: LDL Less than 100 MG/DL Near or Above Optimal: LDL 100-129 MG/DL Borderline High Risk: LDL 130-159 MG/DL High Risk: LDL 160-189 MG/DL Very High Risk: LDL Greater than 189 MG/DL 120 FASTING PATIENT MAY HAVE RESULTS PER DOCTOR'S AUTHORIZATION. Questions regarding this report should be directed to your doctor. 121 Anion gap measurement may be of limited value in the presence of any alkalosis, especially in a combined acid base disorder. . 122 Note change in reference range as of 12/29/07. The change was based on recommendations from the [place] [employer]. 123 Please note change in reference range effective 07 . 124 A metabolite of Naproxen, O-desmethylnaproxen, has been shown to interfere with the [place] method for measuring total bilirubin. Samples from patients who have taken Naproxen have shown spurious elevation in total bilirubin levels. 125 Because ethnic data is not always readily available, this report includes an eGFR for both -Americans and non- Americans. The National Kid[employer] Disease Education Program (NKDEP) does not endorse the use of the MDRD equation for patients that are not between the ages of 18 and 70, are , have extremes of body size, muscle mass, or nutritional status, or are non- or non-. According to the National [employer], irrespective of diagnosis, the stage of the disease is based on the level of kidney function: Stage Description GFR(mL/min/1.73 m(2)) 1 Kidney damage with normal or decreased GFR 90 2 Kidney damage with mild decrease in GFR 60-89 3 Moderate decrease in GFR 30-59 4 Severe decrease in GFR 15-29 5 Kidney failure <15 (or dialysis) 126 CHOLESTEROL INTERPRETATION: Desirable: Less than 200 MG/DL Borderline-High Risk: 200-239 MG/DL High-Risk: 240 MG/DL and over 127 HDL INTERPRETATION: Undesirable: High Risk: Less than 40 MG/DL Desirable: Low Risk: Greater than 60 MG/DL 128 LDL INTERPRETATION: Low Risk Optimal Level: LDL Less than 100 MG/DL Near or Above Optimal: LDL 100-129 MG/DL Borderline High Risk: LDL 130-159 MG/DL High Risk: LDL 160-189 MG/DL Very High Risk: LDL Greater than 189 MG/DL 129 FASTING 130 CHOLESTEROL INTERPRETATION: Desirable: Less than 200 MG/DL Borderline-High Risk: 200-239 MG/DL High-Risk: 240 MG/DL and over 131 HDL INTERPRETATION: Undesirable: High Risk: Less than 40 MG/DL Desirable: Low Risk: Greater than 60 MG/DL 132 LDL INTERPRETATION: Low Risk Optimal Level: LDL Less than 100 MG/DL Near or Above Optimal: LDL 100-129 MG/DL Borderline High Risk: LDL 130-159 MG/DL High Risk: LDL 160-189 MG/DL Very High Risk: LDL Greater than 189 MG/DL 133 A metabolite of Naproxen, O-desmethylnaproxen, has been shown to interfere with the Jendrassik-Mercedes method for measuring total bilirubin. Samples from patients who have taken Naproxen have shown spurious elevation in total bilirubin levels. 134 UNABLE TO CALCULATE IND.BILI D.BILI IS <0.1 135 CHOLESTEROL INTERPRETATION: Desirable: Less than 200 MG/DL Borderline-High Risk: 200-239 MG/DL High-Risk: 240 MG/DL and over 136 HDL INTERPRETATION: Undesirable: High Risk: Less than 40 MG/DL Desirable: Low Risk: Greater than 60 MG/DL 137 LDL INTERPRETATION: Low Risk Optimal Level: LDL Less than 100 MG/DL Near or Above Optimal: LDL 100-129 MG/DL Borderline High Risk: LDL 130-159 MG/DL High Risk: LDL 160-189 MG/DL Very High Risk: LDL Greater than 189 MG/DL 138 Anion gap measurement may be of limited value in the presence of any alkalosis, especially in a combined acid base disorder. . 139 Note change in reference range as of 12/29/07. The change was based on recommendations from the [place] [employer]. 140 Please note change in reference range effective 07 . 141 Anion gap measurement may be of limited value in the presence of any alkalosis, especially in a combined acid base disorder. . 142 Note change in reference range as of 12/29/07. The change was based on recommendations from the [place] [employer]. 143 Please note change in reference range effective 07 . 144 CHOLESTEROL INTERPRETATION: Desirable: Less than 200 MG/DL Borderline-High Risk: 200-239 MG/DL High-Risk: 240 MG/DL and over 145 HDL INTERPRETATION: Undesirable: High Risk: Less than 40 MG/DL Desirable: Low Risk: Greater than 60 MG/DL 146 LDL INTERPRETATION: Low Risk Optimal Level: LDL Less than 100 MG/DL Near or Above Optimal: LDL 100-129 MG/DL Borderline High Risk: LDL 130-159 MG/DL High Risk: LDL 160-189 MG/DL Very High Risk: LDL Greater than 189 MG/DL 147 Anion gap measurement may be of limited value in the presence of any alkalosis, especially in a combined acid base disorder. . 148 Please note change in reference range effective 07 . 149 CHOLESTEROL INTERPRETATION: Desirable: Less than 200 MG/DL Borderline-High Risk: 200-239 MG/DL High-Risk: 240 MG/DL and over 150 HDL INTERPRETATION: Undesirable: High Risk: Less than 40 MG/DL Desirable: Low Risk: Greater than 60 MG/DL 151 LDL INTERPRETATION: Low Risk Optimal Level: LDL Less than 100 MG/DL Near or Above Optimal: LDL 100-129 MG/DL Borderline High Risk: LDL 130-159 MG/DL High Risk: LDL 160-189 MG/DL Very High Risk: LDL Greater than 189 MG/DL 152 Anion gap measurement may be of limited value in the presence of any alkalosis, especially in a combined acid base disorder. . 153 Classification: Desirable . 154 CALCULATED LDL APPROXIMATES THE VALUE OF A DIRECT LDL MEASUREMENT. Classification: Optimal Level . 155 FASTING CPK ORDERED BY DR NGUYEN PATIENT MAY HAVE RESULTS PER DOCTOR'S AUTHORIZATION. Questions regarding this report should be directed to your doctor. 156 PATIENT MAY HAVE RESULTS PER DOCTOR'S AUTHORIZATION. Questions regarding this report should be directed to your doctor. 157 FASTING CPK ORDERED BY DR NGUYEN PATIENT MAY HAVE RESULTS PER DOCTOR'S AUTHORIZATION. Questions regarding this report should be directed to your doctor. 158 Classification: Desirable . 159 Classification: Low . 160 CALCULATED LDL APPROXIMATES THE VALUE OF A DIRECT LDL MEASUREMENT. Classification: Optimal Level . 161 Anion gap measurement may be of limited value in the presence of any alkalosis, especially in a combined acid base disorder. . 162 Anion gap measurement may be of limited value in the presence of any alkalosis, especially in a combined acid base disorder. . 163 Classification: Desirable . 164 Classification: Low . 165 CALCULATED LDL APPROXIMATES THE VALUE OF A DIRECT LDL MEASUREMENT. Classification: Optimal Level . 166 FASTING PLEASE SEND COPY OF RESULTS TO PATIENT. 167 Classification: Desirable . 168 Classification: Low . 169 CALCULATED LDL APPROXIMATES THE VALUE OF A DIRECT LDL MEASUREMENT. Classification: Optimal Level . Procedures Date Code Description Status 06/23/2018 72605 Holter Monitor Review (24 hr)dr review & interp only Completed 06/22/2018 71557 ECG Monitor/Recording W/Visual Superimposition Scanning Completed 06/17/2018 89237 EKG Tracing & Interpretation Completed 12/07/2017 64965 EKG Tracing & Interpretation Completed 11/08/2017 36067 Treadmill Interp/Report Only Completed 11/08/2017 31738 Stress Test Supervsn W/Out I/R Completed 11/06/2017 01400 EKG, Interpretation Only Completed 11/05/2017 23222 ECHO Transthorasic Realtime 2D W Doppler & Color Flow Completed Hosp 09/28/2017 62303 EKG Tracing & Interpretation Completed 09/02/2017 13615 ECHO Transthoracic, Real-Time 2D With Doppler And Color Completed Flow 09/02/2017 68002 ECHO Transthoracic, Real-Time 2D With Doppler And Color Completed Flow 08/26/2017 46270 EKG Tracing & Interpretation Completed 04/05/2017 28088 EKG Tracing & Interpretation Completed 10/26/2016 34070 EKG Tracing & Interpretation Completed 03/31/2016 88544 EKG Tracing & Interpretation Completed 12/31/2015 33166 EKG Tracing & Interpretation Completed 06/11/2015 49462 EKG Tracing & Interpretation Completed 08/27/2014 20615 EKG Tracing & Interpretation Completed 04/04/2014 28902 ECHO Transthoracic, Real-Time 2D With Doppler And Color Completed Flow 02/26/2014 69760 EKG Tracing & Interpretation Completed 07/07/2013 60325 EKG Tracing & Interpretation Completed 12/30/2012 97193 EKG Tracing & Interpretation Completed 09/07/2012 02794 EKG Tracing & Interpretation Completed 09/01/2012 47394 EKG, Interpretation Only Completed 09/01/2012 05488 Stress Test Supervsn W/Out I/R Completed 09/01/2012 19059 Treadmill Interp/Report Only Completed 05/13/2012 00322 EKG Tracing & Interpretation Completed 04/04/2012 22930 EKG Tracing & Interpretation Completed 01/15/2012 53478 Rad Exam; Knee Comp Completed 01/15/2012 81071 Xray Knee 3 Views Completed 01/15/2012 73895 Rad Exam; Knee, Ap&L Completed 01/15/2012 79111 Rad Exam; Hip Unilat Completed 01/15/2012 61282 Rad Exam; Pelvis Completed 12/07/2011 74503 EKG Tracing & Interpretation Completed 09/22/2011 64786 Holter Monitoring 24 HR New Completed 09/09/2011 77659 EKG Tracing & Interpretation Completed 09/02/2011 09033 EKG Tracing & Interpretation Completed 08/31/2011 44466 EKG Tracing & Interpretation Completed 08/17/2011 30248 EKG Tracing & Interpretation Completed 07/24/2011 74655 Holter Monitoring 24 HR New Completed 07/16/2011 05619 EKG Tracing & Interpretation Completed 04/13/2011 70289 EKG Tracing & Interpretation Completed 01/16/2011 84914 ECHO Transthoracic, Real-Time 2D With Doppler And Color Completed Flow 01/01/2011 77618 Treadmill Interp/Report Only Completed 01/01/2011 10768 Stress Test Supervsn W/Out I/R Completed 12/11/2010 49110 EKG Tracing & Interpretation Completed 03/07/2010 46957669 Mammogram Completed 01/22/2010 47272 ECHO Stress Test Incl Perf Contiuous ekg Monitoring Completed W/Phys Superv 09/25/2009 23507 EKG Tracing & Interpretation Completed 03/07/2009 [id number] Mammogram Completed 01/03/2009 12975 EKG Tracing & Interpretation Completed 10/15/2008 45759 EKG Tracing & Interpretation Completed 01/18/2008 28222 Stress Test Completed 01/18/2008 17162 Stress Test Completed 01/18/2008 10867 ECHO/Stress Completed 01/18/2008 53821 ECHO/Stress Completed 01/18/2008 60789 ECHO/Stress Completed 06/06/2007 69085 EKG Tracing & Interpretation Completed 12/14/2006 33959 Amb.BP Monitor/Phys Interp&Report Completed 12/14/2006 57334 Amb.BP Monitor/Phys Interp&Report Completed 09/27/2006 45531 ECHO/Stress Completed 09/27/2006 94431 ECHO/Stress Completed 09/27/2006 43336 Stress Test Completed 05/31/2006 98055 EKG Tracing & Interpretation Completed 05/31/2006 21499 EKG Tracing & Interpretation Completed 06/15/2005 52184 ECHO/Stress Completed 06/15/2005 84503 Stress Test Completed 05/20/2005 24823 EKG Tracing & Interpretation Completed Encounters Type Date Location Provider Dx Diagnosis Office Visit 06/17/2018 [facility] Angel Shaw I47.1 Supraventricular 2:20p Jimi Nguyen tachycardia I25.10 Athscl heart disease of [place] coronary artery w/o ang pctrs E78.00 Pure hypercholesterolemia, unspecified I10 Essential (primary) hypertension I70.213 [place]scl [place] arteries of extrm w intrmt isaias, bi legs R00.1 Bradycardia, unspecified Office Visit 12/07/2017 8:20a [facility] Angel Shaw R07.9 Chest pain, Jimi Nguyen unspecified I47.1 Supraventricular tachycardia I25.10 Athscl heart disease of [place] coronary artery w/o ang pctrs E78.00 Pure hypercholesterolemia, unspecified I10 Essential (primary) hypertension Office Visit 11/09/2017 [facility] Renny K92.2 Gastrointestinal 8:30a Assoc,IZAIAH Van hemorrhage, Hospitalists unspecified R07.9 Chest pain, unspecified I47.1 Supraventricular tachycardia I25.10 Athscl heart disease of [place] coronary artery w/o ang pctrs Office Visit 11/08/2017 [facility] Demond Montanez R07.9 Chest pain, 4:09p Of Jonnie Clemente M.D. unspecified Office Visit 11/08/2017 [facility] Renny K92.2 Gastrointestinal 8:29a Assoc,omid Andre PA hemorrhage, Hospitalists unspecified I47.1 Supraventricular tachycardia R07.9 Chest pain, unspecified E03.9 Hypothyroidism, unspecified I25.10 Athscl heart disease of [place] coronary artery w/o ang pctrs Office Visit 11/07/2017 [facility] Nhan Delcid R07.9 Chest pain, 8:29a Assoc,omid Lockett MD unspecified Hospitalists I25.10 Athscl heart disease of [place] coronary artery w/o ang pctrs R10.11 Right upper quadrant pain D63.8 Anemia in other chronic diseases classified elsewhere Office Visit 11/06/2017 [facility] Demond Montanez I25.10 Athscl heart 4:21p Of Jonnie Clemente M.D. disease of [place] coronary artery w/o ang pctrs Office Visit 11/06/2017 [facility] Nhan Delcid R07.9 Chest pain, 8:28a Assoc,omid Lockett MD unspecified Hospitalists R10.11 Right upper quadrant pain I25.10 Athscl heart disease of [place] coronary artery w/o ang pctrs D63.8 Anemia in other chronic diseases classified elsewhere Office Visit 11/05/2017 3:27p [facility] Angel Shaw R07.9 Chest pain, Jimi Nguyen unspecified R10.11 Right upper quadrant pain I25.10 Athscl heart disease of [place] coronary artery w/o ang pctrs I10 Essential (primary) hypertension R94.31 Abnormal electrocardiogram [ECG] [EKG] Office Visit 11/05/2017 [facility] Sybil R07.9 Chest pain, 8:28a Assoc,omid Alamo NP unspecified Hospitalists I25.10 Athscl heart disease of [place] coronary artery w/o ang pctrs R10.11 Right upper quadrant pain I10 Essential (primary) hypertension Office Visit 09/28/2017 2:20p [facility] Angel Shaw I10 Essential (primary) Of [facility] Jimi Nguyen hypertension I47.1 Supraventricular tachycardia I25.10 Athscl heart disease of [place] coronary artery w/o ang pctrs E78.00 Pure hypercholesterolemia, unspecified I71.4 Abdominal aortic aneurysm, without rupture Office Visit 09/02/2017 1:30p [facility] Nurse Visit IC I10 Essential (primary) Of [facility] hypertension Office Visit 08/26/2017 8:20a [facility] Angel Shaw I10 Essential (primary) Jimi Nguyen hypertension E78.00 Pure hypercholesterolemia, unspecified I25.10 Athscl heart disease of [place] coronary artery w/o ang pctrs I47.1 Supraventricular tachycardia I34.0 Nonrheumatic mitral (valve) insufficiency I71.4 Abdominal aortic aneurysm, without rupture R01.1 Cardiac murmur, unspecified R94.31 Abnormal electrocardiogram [ECG] [EKG] Office Visit 04/05/2017 8:40a [facility] Angel Shaw I10 Essential (primary) Jimi Nguyen hypertension E78.00 Pure hypercholesterolemia, unspecified I25.10 Athscl heart disease of [place] coronary artery w/o ang pctrs I47.1 Supraventricular tachycardia I34.0 Nonrheumatic mitral (valve) insufficiency Office Visit 12/02/2016 11:00a [facility] Dunia Acevedois, I10 Essential (primary) PA hypertension E78.00 Pure hypercholesterolemia, unspecified I25.10 Athscl heart disease of [place] coronary artery w/o ang pctrs Office Visit 10/26/2016 [facility] I47.1 Supraventricular 9:20a Cardiology Jimi Nguyen tachycardia I34.0 Nonrheumatic mitral (valve) insufficiency I10 Essential (primary) hypertension E78.00 Pure hypercholesterolemia, unspecified I25.10 Athscl heart disease of [place] coronary artery w/o ang pctrs R53.83 Other fatigue Office Visit 03/31/2016 [facility] I47.1 Supraventricular 1:20p Cardiology Jimi Nguyen tachycardia I34.0 Nonrheumatic mitral (valve) insufficiency I10 Essential (primary) hypertension E78.00 Pure hypercholesterolemia, unspecified I25.10 Athscl heart disease of [place] coronary artery w/o ang pctrs Office Visit 12/31/2015 [facility] I47.1 Supraventricular 10:30a Cardiology Hernesto Nguyen M.D. 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 tachycardia Dental Laboratory Manager I34.0 Nonrheumatic mitral (valve) insufficiency I10 Essential (primary) hypertension E78.0 Pure hypercholesterolemia Office Visit 08/27/2014 [facility] 427.0 PSVT Paroxysmal 1:20p Cardiology Jimi Nguyen Supraventricular Tachycardia 785.1 Palpitations 401.1 Hypertension Benign 424.0 Mitral Valve Disorder 414.01 Coronary Atherosclerosis [place] Office Visit 04/10/2014 [facility] Dunia Tavares, 427.0 PSVT Paroxysmal 11:00a Cardiology Of [place] Supraventricular Dental Laboratory Manager Tachycardia 785.1 Palpitations 401.1 Hypertension Benign Office Visit 02/26/2014 [facility] Angel Shaw 414.01 Coronary 3:40p Cardiology Jimi Nguyen Atherosclerosis [place] 401.1 Hypertension Benign 424.0 Mitral Valve Disorder 785.1 Palpitations Office Visit 07/07/2013 2:40p [facility] Angel Shaw 401.0 Hypertension Jimi Nguyen Malignant 427.0 PSVT Paroxysmal Supraventricular Tachycardia 414.01 Coronary Atherosclerosis [place] Office Visit 12/30/2012 [facility] Angel Shaw 414.01 Coronary 12:20p Cardiology Jimi Nguyen Atherosclerosis [place] 401.1 Hypertension Benign 427.0 PSVT Paroxysmal Supraventricular Tachycardia Office Visit 09/07/2012 11:40a [facility] Angel Shaw 401.9 Hypertension Jimi Nguyen Unspec 414.01 Coronary Atherosclerosis [place] 786.50 Pain Chest Unspec 427.0 PSVT Paroxysmal Supraventricular Tachycardia Office Visit 09/02/2012 12:51p [facility] Goldy 786.51 Pain Precordial Assoc,omid Roy M.D. Hospitalists 401.9 Hypertension Unspec 414.01 Coronary Atherosclerosis [place] Office Visit 09/01/2012 1:11p [facility] Angel Shaw 786.50 Pain Chest Jimi Nguyen Unspec 414.01 Coronary Atherosclerosis [place] 427.0 PSVT Paroxysmal Supraventricular Tachycardia Office Visit 08/31/2012 12:50p [facility] Chiquita Campos 786.51 Pain Precordial Assoc,omid Solis Hospitalists 401.9 Hypertension Unspec 414.01 Coronary Atherosclerosis [place] Office Visit 07/14/2012 3:00p [facility] Nurse Visit cc 401.1 Hypertension Benign Office Visit 07/07/2012 11:40a [facility] Angel Shaw 424.0 Mitral Valve Jimi Nguyen Disorder 427.0 PSVT Paroxysmal Supraventricular Tachycardia 414.01 Coronary Atherosclerosis [place] Office Visit 06/10/2012 9:50a [facility] Angel Shaw 424.0 Mitral Valve Jimi Nguyen Disorder 427.0 PSVT Paroxysmal Supraventricular Tachycardia 272.4 Hyperlipidemia Other Unspec 414.01 Coronary Atherosclerosis [place] Office Visit 05/13/2012 11:00a [facility] Angel Shaw 424.0 Mitral Valve Jimi Nguyen Disorder 272.4 Hyperlipidemia Other Unspec 427.0 PSVT Paroxysmal Supraventricular Tachycardia 414.01 Coronary Atherosclerosis [place] Office Visit 04/04/2012 [facility] Shaw 427.0 PSVT Paroxysmal 3:40p Cardiology Jimi Nguyen Supraventricular Tachycardia 272.4 Hyperlipidemia Other Unspec 424.0 Mitral Valve Disorder 414.01 Coronary Atherosclerosis [place] Office Visit 01/15/2012 Orthopedic Dirk Shalini, 451.11 Phlebitis & 10:15a Services Of Jimi Thrombophlebitis C.M.A. Femoral Vein (Deep)(Superficial 716.96 Arthropathy Unspec Lower Leg 715.95 Osteoarthrosis Unspec Genlzd Or Localized Pelvic & Thigh Office Visit 01/13/2012 [facility] Cathie Zavala, 401.1 Hypertension 10:00a Cardiology N.P. Benign 427.0 PSVT Paroxysmal Supraventricular Tachycardia 272.4 Hyperlipidemia Other Unspec Office Visit 12/30/2011 2:00p [facility] Angel Shaw 424.[address] [facility] [place]i [place] Disorder 401.1 Hypertension Benign 785.1 Palpitations 427.0 PSVT Paroxysmal Supraventricular Tachycardia 786.2 Cough Office Visit 12/07/2011 1:20p [facility] Angel Shaw 424.0 Mitral Valve Jimi Nguyen Disorder 401.1 Hypertension Benign 785.1 Palpitations 427.0 PSVT Paroxysmal Supraventricular Tachycardia Office Visit 09/28/2011 10:30a [facility] Cathie Zavala, 785.1 Palpitations N.P. 401.1 Hypertension Benign Office Visit 09/09/2011 1:30p [facility] Angel Shaw 424.0 Mitral Valve Jimi Nguyen Disorder 785.0 Tachycardia Unspec 414.01 Coronary Atherosclerosis [place] 272.4 Hyperlipidemia Other Unspec Office Visit 09/02/2011 10:20a [facility] Angel Shaw 424.[address] [facility]i [place] Disorder 785.0 Tachycardia Unspec 786.50 Pain Chest Unspec 414.01 Coronary Atherosclerosis [place] Office Visit 08/31/2011 11:40a [facility] Angel Shaw 424.0 Mitral Valve Jimi Nguyen Disorder 785.0 Tachycardia Unspec 786.50 Pain Chest Unspec 785.1 Palpitations Office Visit 08/27/2011 2:30p [facility] Cathie Jesikaer, 785.0 Tachycardia Cardiology AT N.P. Unspec [facility] Office Visit 08/17/2011 3:00p [facility] Angel Shaw 424.0 Mitral Valve Cardiology Jimi Nguyen Disorder 414.01 Coronary Atherosclerosis [place] 785.1 Palpitations 785.0 Tachycardia Unspec Office Visit 07/16/2011 10:20a [facility] Angel Shaw 424.0 Mitral Valve Jimi Nguyen Disorder 414.01 Coronary Atherosclerosis [place] 401.1 Hypertension Benign Office Visit 04/13/2011 2:40p [facility] Angel Shaw 424.0 Mitral Valve Jimi Nguyen Disorder 414.01 Coronary Atherosclerosis [place] 401.1 Hypertension Benign 272.4 Hyperlipidemia Other Unspec Office 01/01/2011 [facility] Templetondav[facility] SKalli 794.31 Electrocardiogram Visit 9:04a Cardiology Jimi Shetty (ECG) (EKG) Abnormal 414.01 Coronary Atherosclerosis [place] 401.1 Hypertension Benign 786.50 Pain Chest Unspec 272.4 Hyperlipidemia Other Unspec V45.82 Percutaneous Transluminal Coronary Angioplas Postsurg Status Office Visit 12/11/2010 [facility] 414.01 Coronary 2:00p Cardiology Jimi Nguyen Atherosclerosis [place] 272.0 Hypercholesterolemia Pure 401.1 Hypertension Benign 785.2 Murmur Cardiac Undiagnosed Office Visit 08/13/2010 11:20a DO Not Use Dental Laboratory Manager Jose Angel King 599.0 UTI Urinary Tract AT Duncan Campbell M.D. Infection Site Not Spec Office Visit 01/06/2010 9:00a DO Not Use Dental Laboratory Manager Jose Angel King 401.1 Hypertension Benign AT Duncan Campbell M.D. 414.01 Coronary Atherosclerosis [place] 272.0 Hypercholesterolemia Pure 244.9 Hypothyroidism Other Unspec 530.81 Esophageal Reflux Office 09/25/2009 [facility] 272.0 Hypercholesterolemia Pure Visit 11:00a Pieter Nguyen M.D. 414.01 Coronary Atherosclerosis [place] 401.1 Hypertension Benign Office Visit 08/29/2009 2:00p DO Not Use Dental Laboratory Manager AT Jose Angel King 465.9 URI Upper Duncan Campbell M.D. Respiratory Infections Acute Unspec Sites Office Visit 01/16/2009 10:00a [facility] Pieter Shaw 401.1 Joy Nguyen M.D. Benign 414.01 Coronary Atherosclerosis [place] 272.0 Hypercholesterolemia Pure 425.4 Cardiomyopathy Other Prim Office Visit 01/03/2009 9:00a [facility] Jose Angel King 401.1 Hypertension Benign Assoc AT Jimi Campbell [facility] 414.01 Coronary Atherosclerosis [place] 244.9 Hypothyroidism Other Unspec 272.0 Hypercholesterolemia Pure 729.5 Pain In Limb Office Visit 11/20/2008 [facility] Nurse Visit cc 401.1 Hypertension Benign 9:30a Cardiology Office Visit 10/15/2008 [facility] Angel Shaw 414.01 Coronary 8:40a Cardiology Jimi Nguyen Atherosclerosis [place] 272.0 Hypercholesterolemia Pure 401.1 Hypertension Benign 425.4 Cardiomyopathy Other Prim Office Visit 10/20/2007 9:00a [facility] Jose Angel King 414.01 Coronary Assoc AT Jimi Campbell [facility] [place] 530.81 Esophageal Reflux 272.0 Hypercholesterolemia Pure 401.1 Hypertension Benign Office Visit 07/11/2007 10:00a [facility] Angel Shaw 401.1 Joy Nguyen M.D. Benign 414.01 Coronary Atherosclerosis [place] 272.0 Hypercholesterolemia Pure Office Visit 06/06/2007 2:00p [facility] Angel Shaw 401.1 Joy Nguyen M.D. Benign 414.01 Coronary Atherosclerosis [place] 272.0 Hypercholesterolemia Pure Office Visit 04/20/2007 3:15p [facility] Jose Angel King 414.01 Coronary Assoc AT Jimi Campbell [facility] [place] 272.0 Hypercholesterolemia Pure 401.1 Hypertension Benign 244.9 Hypothyroidism Other Unspec Office Visit 11/30/2006 9:00a [facility] Angel Shaw 401.0 Joy Nguyen M.D. Malignant 272.0 Hypercholesterolemia Pure 414.01 Coronary Atherosclerosis [place] 796.2 Blood Pressure Reading Elevated W/O Hypertension Office Visit 05/31/2006 [facility] 414.01 Coronary 3:20p Cardiology Jimi Nguyen Atherosclerosis [place] 272.0 Hypercholesterolemia Pure Office Visit 05/20/2005 [facility] Angel Shaw 414.01 Coronary 10:20a Cardiology Jimi Nguyen Atherosclerosis [place] 401.0 Hypertension Malignant Plan of Treatment Future Appointment(s):09/14/2018 10:00 am - Angel Nguyen M.D. at [facility]07/04/2018 - Christina Sorensen, NPE78.5 Hyperlipidemia, unspecifiedRecommendations:Increase Crestor to 5mg by mouth daily.I25.10 Atherosclerotic heart disease of [place] coronary artery withFollow up:in 4-[address] Lopez47.1 Supraventricular [id number] Essential (primary) hypertension
--- OUTSIDE RECORDS SUMMARY | 2018-07-06 09:44 | XMS REPORT | Continuity of Care Document ---
:1940 External Reference #:[id number] Author Name Montez, Kaur Care Team Providers Name Role Phone Nadya Zavala MD Primary Care Physician Unavailable Payers Date Identification Numbers Payment Provider Subscriber Effective: 2006 Policy Number: [id number] Medicare [place] PayID: [id number] [address] [place] [address] Policy [address]: [id number] [facility] [place] PayID: [id number] [address] [place] [address] Effective: 2006 Policy Number: [id number] Medicare Blue Ppo [place] Expires: 2007 PayID: [id number] [address] [address] [place] [address] Advance Directives Description No Information Available Problems [...] Essential hypertension Angel Nguyen M.D. Active Onset: 11/08/2017 Hypothyroidism IZAIAH Marino Active Onset: 11/08/2017 Gastrointestinal hemorrhage IZAIAH Marino Active Onset: 11/07/2017 Anemia of chronic disease Abhinav Blackburn MD Onset: 11/06/2017 Right upper quadrant pain Abhinav Blackburn MD Family History Date Family Member(s) Observation Comments [...] Use Denies Drug Use Smoking Status Reviewed: 06/17/18 Patient has never smoked Exercise Type/Frequency Exercises regularly Allergies, Adverse Reactions, Alerts Date Description Reaction Status Severity Comments 05/20/2005 DT vaccination Active 12/10/2011 Albuterol heart racing Active 04/04/2012 Zetia myalgias Active Medications Medication Date Status Form Strength Qnty SIG Indications Ordering Provider Rosuvastatin Calcium 12/02 Active Tablets 5mg 90tab 05/11 E78.00 s tablet F. by mouth Marie, every M.DKalli night Co Q10 Maximum 06/11 Active Capsules 200mg 200ca 1 by Angel ps mouth F. daily Jimi Nguyen Digoxin 06/19 Active Tablets 250mcg 100ta take 1 Angel bs tablet F. by mouth Marie, 3 times M.DKalli a week wed Diovan 09/07 Active Tablets 40mg 180ta 1 by Angel bs mouth F. daily Jimi Nguyen Levothyroxine Sodium Active Tablets 75mcg 1 po qd Diltiazem CD Active Caps ER 240mg 90cap 1 po qd 24HR s Valeria Nguyen M.D. Vitamin D3 Active Capsules 60cap 1 po qd s Meclizine HCL Active Tablets 12.5mg as needed Spironolactone 08/26 Hx Tablets 25mg 90tab 2 by s mouth F. - every Mauser, 09/19 day .D. Pravastatin Sodium 04/08 Hx Tablets 20mg 90tab 05/11 s tablet F. - by mouth user, 12/02 once M.D. every other day Atorvastatin Calcium 06/11 Hx Tablets 10mg 90tab 2 by s mouth F. - every user, 04/03 day at .D. bedtime (pt held for past 3 days due to myalgias ) Atorvastatin Calcium 10/23 Hx Tablets 10mg 90tab 1 by s mouth F. - every Mauser, 06/11 day .D Atorvastatin Calcium 08/26 Hx Tablets 20mg 60tab take 05/11 s tablet F. - at , 10/23 bedtime . Digoxin 02/28 Hx Tablets 125mcg 90tab Take 1 s tab by F. - mouth on , 06/19 odd days .D. and 2 tabs by mouth on even days. Klor-Con 10 02/28 Hx Tablets 10Meq 90tab 3 tabs ER s by mouth F. - every user, 03/30 day ( last taken 4 months ago) Atorvastatin Calcium 07/07 Hx Tablets 10mg 90tab 2 by s mouth F. - every Mauser, 08/27 day .D. Losartan Potassium 09/07 Hx Tablets 160mg 90tab 1 po qd s F. - Mauser, 09/07.D. Aspirin 09/07 Hx Tablets 81mg 1 po qd Ordering - Provider 12/06 Diovan 07/07 Hx Tablets 40mg 100ta 1 po qd bs F. - user, 09/05.D Lipitor 06/23 Hx Tablets 10mg 1 po qhs Valeria Nguyen, 09/05 M.D. Diovan 06/10 Hx Tablets 40mg 90tab 1 po qod s Valeria Nguyen, 07/07 M.D. Lipitor 04/04 Hx Tablets 20mg 90tab 1 po qhs s hold as Valeria Winkler, 06/23 2.1. M.D. Calan SR 12/20 Hx Tablets 120mg 30tab 1 po qd ER s Valeria Nguyen, 12/20 M.D. Calan SR 12/20 Hx Tablets 180mg 90tab 1 tab po ER s qatia Nguyen, 04/04 M.D. Micro-K 12/17 Hx Capsules 10Meq 60cap 2 po qd ER s Valeria Nguyen, 01/12 M.D. Diltiazem CD 12/06 Hx Caps ER 120mg 200ca 2 po qd 24HR ps Valeria Nguyen, 12/20 M.D. Levothyroxine Sodium 12/06 Hx Tablets 75mcg 1 po qd . Tonia Campbell M.D. 12/06 Atenolol 09/08 Hx Tablets 25mg 30tab 1/2 po s qd Valeria Nguyen, 12/06 M.D. Diltiazem CD 08/30 Hx Caps ER 120mg 100ca 1 po qd 24HR ps Valeria Nguyen, 12/06 M.D. Atenolol 08/30 Hx Tablets 25mg 100ta 1 po qd bs Valeria Nguyen, 09/08 M.D. Levoxyl 08/16 Hx Tablets 75mcg 1 po qd . Tonia Campbell M.D. 12/06 Atenolol 08/16 Hx Tablets 25mg 60tab 1 po qd s 08/18/11 F. - and Mauser, 08/3008/19/11 M.D. and then 1 / tablets qd Digoxin 08/16 Hx Tablets 0.125mg 90tab Take 1 s tab by F. - mouth on , 02/28 odd days M.D. and 2 tabs by mouth on even days. Atenolol 07/30 Hx Tablets 25mg 60tab 2 po qd s F. - Mauser, 08/16 M.D. Atenolol 07/15 Hx Tablets 25mg 100ta 1 po qd bs F. - Mauser, 07/30 M.D. Crestor 06/15 Hx Tablets 10mg 45tab 1 and s 05/11 F. - tablets Mauser, 04/04 po qd M.D. Crestor 06/12 Hx Tablets 5mg 1 05/11 tablets F. - po qd use, 06/15 M.D. Atenolol 04/13 Hx Tablets 50mg 100ta 05/11 po bs qd F. - Mauser, 07/15 M.D. Crestor 04/13 Hx Tablets 10mg 1 po qd F. - Mauser, 06/12 M.D. Isosorbide 02/27 Hx Tablets 30mg 30tab 1 po qd Angel Mononitrate ER 24HR s F. - Mauser, 04/13 M.D. Septra DS 08/13 Hx Tablets 800-160mg 6tabs 1 po bid 599.0 Jose Angel EKalli Shannan - M.D. 12/11 Amoxicillin 08/29 Hx Capsules 250mg 30cap tid po Jose Angel EKalli s for 10 Shannan, - days M.D. 01/06 Crestor 03/08 Hx Tablets 10mg 90tab 1 po qd s F. - Mauser, 04/13 M.D. Hydrochlorothiazide 01/16 Hx Tablets 12.5mg 1 po qam prn F. - Mauser, 01/06 M.D. Crestor 12/31 Hx Tablets 5mg 30tab 1 po qd Jose Angel E. Tonia Connor M.D. 03/08 Nexium 12/04 Hx Capsules 40mg 90cap [address] shaun Nguyen, 04/04 M.D. Hydrochlorothiazide 11/20 Hx Tablets 12.5mg 30tab 1 po qd s Valeria Nguyen, 01/16 M.D. Exforge 10/15 Hx Tablets 10-160mg 90tab 1 po qd s Valeria Nguyen, 08/30 M.D. Crestor 10/15 Hx Tablets 20mg / po qd Valeria Nguyen, 11/20 M.D. Allopurinol 07/09 Hx Tablets 100mg 90tab 1 po qd Jose Angel EKalli Tonia Connor M.D. 07/09 Aspirin 07/09 Hx Chewtabs 81mg 1 po qd . Tonia Campbell M.D. 09/01 Crestor 02/02 Hx Tablets 20mg 90tab 1 po qd shaun Nguyen, 10/15 M.D. Lotrel 07/05 Hx Capsules 5-10mg 90cap 1 po qd s Valeria Nguyen, 07/06 M.D. Exforge 06/06 Hx Tablets 5-160mg 90tab 1 po qd s Valeria Nguyen, 10/15 M.D. Cozaar 12/21 Hx Tablets 100mg 45tab 100 mg Jose Angel E. s in am Shannan, - and 50 M.D. 06/06 mg in Niaspan 12/09 Hx Tablets 1000mg 90tab 1 PO qd ER s pt Valeria Nguyen, 12/11 for now M.D. Avapro 09/27 Hx Tablets 150mg 30tab 1 po qd s Valeria Nguyen, 12/21 M.D. Norvasc 07/12 Hx Tablets 5mg 4tabs 1 po am 2 days and Mauser, 11/30 day M.D. before the stress teset and the day of stress test. Niaspan Extended 04/30 Hx Tablets 500mg 30tab 1 po qpm s FKalli - Felipeuseandrew, 12/09 M.D. Lipitor 07/27 Hx Tablets 80mg 90tab 1 po qd s FKalli - Marie, 02/02 M.D. Cozaar 05/20 Hx Tablets 50mg 30tab 1 PO qd s Valeria Nguyen, 09/27 M.D. Atenolol 05/20 Hx Tablets 50mg 90tab 1 po qd . Tonia Connor M.D. 04/13 Lipitor 05/20 Hx Tablets 20mg 30tab 1 po qd s FKalli Randall Mauser, 05/20 M.D. Zetia 05/20 Hx Tablets 10mg 90tab 1 PO qd s FKalli Nguyen, 06/01 M.D. Aspirin Enteric 05/20 Hx Tablets 81mg 1 po qD F. - Mauser, 07/09 M.D. Lipitor 05/20 Hx Tablets 40mg 90tab 1 po qpm s FKalli Nguyen, 07/27 M.D. Plavix Hx Tablets 75mg 90tab 1 PO qd Angel s FKalli Nguyen, 07/07 M.D. Nexium Hx Capsules 40mg 90cap 1 PO qd Jose Angel E. /0000 Tonia Connor M.D. 01/16 Levoxyl Hx Tablets 50mcg 90tab 1 PO qd Jose Angel E. /0000 Tonia Connor M.D. 08/16 Nexium Hx Packet 40mg 90uni 1 PO qd Jose Angel E. /0000 Tonia Trinidad M.D. 06/06 Klor-Con M20 Hx Tablets 20Meq 30tab 1 po qd Angel /0000 ER s . - Marie, 04/04 M.D. /2011 Aloa Hx OTC acid buffer - daily 04/04 Diovan Hx Tablets 160mg 90tab 1 po qd Angel /0000 s hold as F. - Marie, 06/13 2.1.13 M.D. Aspirin Hx Tablets 81mg 90tab 1 po qd Angel /0000 s F. - Felipeuser, 09/05 M.D. Famotidine Hx Tablets 40mg 30tab 1 po qd s - 06/10 Ondansetron HCL Hx Tablets 4mg 30tab one by Unknown / s mouth - every 8 06/10 hours needed for nausea Tums Hx Chewtabs 500mg prn - 06/10 [facility] Lutein Hx Capsules 40mg 1 by Unknown / mouth - every /2018 Amoxicillin Hx Tablets 875mg take one tablet - by mouth 09/27 twice a day (will be done in two days) Immunizations Description No Information Available Vital Signs Date Vital Result Comment 06/17/2018 2:16pm Height 63 inches 5'3" Weight [...] at Heart Rate 64 /min [facility] 05/19 150 lbs BP Systolic Sitting 170 mmHg left arm, right arm 180/90 BP Diastolic Sitting 90 mmHg left arm, right arm 180/90 BP Systolic Standing 170 mmHg BP Diastolic Standing 96 mmHg BMI (Body Mass Index) 27.4 kg/m2 Results Test Date Facility Test Result H/L Range Note BUN/Creat/GFR 06/14/2018 [facility] Poc Blood Urea 17 mg/dL N 8-[address] [place] [address] [phone] Poc Creatinine 0.8 mg/dL N 0.6-1.3 1 Poc BUN/Creatinine Ratio 21.3 High 8-20 Egfr Non- 69.2 >60 Egfr 83.7 >60 2 CBC Auto Diff 12/08/2017 [facility] White Blood 5.9 10^3/uL N 3.5-10.[address] [place] [address] [phone] Red Blood Count 3.81 10^6/uL Low 4.00-5.40 [...] Cells % 0 Lipid Panel - 12/08/2017 [facility] Creatine 49 U/L N 10-[address] Kinase(CK) [place] [address] [phone] Comp Metabolic 12/08/2017 [facility] Sodium 141 N 135-[address] mmol/[place] [address] [phone] Potassium 4.3 mmol/L N 3.5-5.0 Chloride 107 [...] Egfr Non- 64.7 >60 Egfr 78.3 >60 3 Lipid Profile 12/08/2017 [facility] Triglycerides 92 mg/dL 4 (Trig/Chol/HDL) [place] [address] [phone] Cholesterol 154 mg/dL 5 HDL Cholesterol 40.1 mg/dL 6 LDL Cholesterol 96 mg/dL 7 Laboratory test 12/08/2017 [facility] Magnesium 2.1 mg/dL N 1.9-2.7 finding 101 [place] [address] [phone] Digoxin 1.2 ng/ml N 0.8-2.0 Catecholamines Plasma 09/03/2017 [facility] Norepinephrine 682 pg/mL 8 [place] [address] [phone] Epinephrine <25 pg/mL 9 Dopamine <25 pg/mL 10 Lipid Profile 09/02/2017 [facility] Triglycerides 124 mg/dL 11, 12 (Trig/Chol/HDL) [place] [address] [phone] Cholesterol 187 mg/dL 13 HDL Cholesterol 35.8 mg/dL 14 LDL Cholesterol 126 mg/dL 15 Basic Metabolic Panel 09/02/2017 [facility] Sodium 141 mmol/L N 139-145 [place] [address] [phone] Potassium 4.6 mmol/L N 3.5-5.0 Chloride 107 mmol/L N 101-111 Co2 Carbon Dioxide 27 mmol/L N 22-32 Anion Gap 7 mmol/L N 2-11 Glucose 97 mg/dL N 70-100 Blood Urea Nitrogen 24 mg/dL N 6-24 Creatinine 0.82 mg/dL N 0.51-0.95 BUN/Creatinine Ratio 29.3 High 8-20 Calcium 9.2 mg/dL N 8.6-10.3 Egfr Non- 67.4 >60 Egfr 86.7 >60 16 Laboratory test 09/02/2017 [facility] Digoxin 0.9 ng/ml N 0.8- 2.0 17 finding 101 [place] [address] [phone] Cortisol 16.43 g/dL 18 Laboratory test 09/02/2017 [facility] TSH (Thyroid 2.60 mcIU/mL N 0.34-5.60 19 finding 101 [facility] Stim [place]orm) [place] [address] [phone] Free T4 (Free Thyroxine) 1.12 ng/dL N 0.61-1.12 20 Laboratory test 08/26/2017 [facility] Digoxin <pending> finding [address] [place] [address] [phone] Laboratory test 08/26/2017 [facility] Cortisol <pending> finding [address] [place] [address] [phone] Lipid Panel - JFM 05/05/2017 [facility] Creatine 73 U/L N 10- [address] Kinase(CK) [place] [address] [phone] Comp Metabolic 05/05/2017 [facility] Sodium 137 mmol/L N 133- [address] [place] [address] [phone] Potassium 4.5 mmol/L N 3.5-5.0 Chloride 103 [...] Egfr Non- 63.8 >60 Egfr 82.1 >60 21 Lipid Profile 05/05/2017 [facility] Triglycerides 122 mg/dL 22 (Trig/Chol/HDL) [address] [place] [address] [phone] Cholesterol 196 mg/dL 23 HDL Cholesterol 42.5 mg/dL 24 LDL Cholesterol 129 mg/dL 25 CBC Auto Diff 05/05/2017 [facility] White Blood 7.1 10^3/uL N 3.5-10.[address] [place] [address] [phone] Red Blood Count 4.29 10^6/uL N 4.0-5.4 [...] 0-2 Nucleated Red Blood Cells % 0 Basic Metabolic Panel 10/26/2016 [facility] Sodium 134 mmol/L N 133-145 [address] [place] [address] [phone] Potassium 5.1 mmol/L High 3.5-5.0 Chloride 105 mmol/L N 101-111 Co2 Carbon Dioxide 22 mmol/L N 22-32 Anion Gap 7 mmol/L N 2-11 Glucose 106 mg/dL High 70-100 Blood Urea Nitrogen 22 mg/dL N 6-24 Creatinine 0.86 mg/dL N 0.51-0.95 BUN/Creatinine Ratio 25.6 High 8-20 Calcium 8.8 mg/dL N 8.6-10.3 Egfr Non- 64.0 N >60 Egfr 82.3 N >60 26 Laboratory test 10/26/2016 [facility] Digoxin 0.8 ng/ml N 0.8- 2.[address] [place] [address] [phone] Lipid Panel - JFM 05/28/2016 [facility] Creatine 62 U/L N 10- [address] Kinase(CK) [place] [address] [phone] Comp Metabolic 05/28/2016 [facility] Sodium 140 mmol/L N 133- [address] [place] [address] [phone] Potassium 4.0 mmol/L N 3.5-5.0 Chloride 107 [...] 63.1 N >60 Egfr 81.2 N >60 27 Lipid Profile 05/28/2016 [facility] Triglycerides 70 mg/dL N 28 (Trig/Chol/HDL) [address] [place] [address] [phone] Cholesterol 150 mg/dL N 29 HDL Cholesterol 38.0 mg/dL N 30 LDL Cholesterol 98 mg/dL N 31 Laboratory test 05/28/2016 [facility] Digoxin 1.3 ng/ml N 0.8- 2.[address] [place] [address] [phone] Lipid Panel - 03/25/2016 [facility] Creatine 105 U/L N 10-223 [address] Kinase(CK) [place] [address] [phone] Comp Metabolic 03/25/2016 [facility] Sodium 139 mmol/L N 133- [address] [place] [address] [phone] Potassium 4.1 mmol/L N 3.5-5.0 Chloride 106 [...] 65.7 N >60 Egfr 84.6 N >60 33 Lipid Profile 03/25/2016 [facility] Triglycerides 87 mg/dL N 34 (Trig/Chol/HDL) [address] [place] [address] [phone] Cholesterol 173 mg/dL N 35 HDL Cholesterol 40.4 mg/dL N 36 LDL Cholesterol 115 mg/dL N 37 Laboratory test 03/25/2016 [facility] Magnesium 2.2 mg/dL N 1.9-2.[address] [place] [address] [phone] CBC Auto Diff 03/25/2016 [facility] White Blood 7.0 N 3.5- 10.[address] Count 10^3/[place] [address] [phone] Red Blood Count 4.24 10^6/uL N 4.0-5.4 [...] Cells % 0 N Laboratory test 03/25/2016 [facility] TSH (Thyroid 2.61 mcIU/mL N 0.34-5.60 [address] Stim [place]orm) [place] [address] [phone] Digoxin 0.9 ng/ml N 0.8-2.0 40 Lipid Panel - 07/02/2015 [facility] Creatine 58 U/L N 10-223 [address] Kinase(CK) [place] [address] [phone] Comp Metabolic 07/02/2015 [facility] Sodium 137 N 133-[address] mmol/[place] [address] [phone] Potassium 4.5 mmol/L N 3.5-5.0 Chloride 103 [...] 63.3 N >60 Egfr 81.4 N >60 42 Lipid Profile 07/02/2015 [facility] Triglycerides 115 mg/dL N 43 (Trig/Chol/HDL) [address] [place] [address] [phone] Cholesterol 171 mg/dL N 44 HDL Cholesterol 36.7 mg/dL N 45 LDL Cholesterol 111 mg/dL N 46 Laboratory test 07/02/2015 [facility] Digoxin 0.7 ng/ml Low 0.8-2.0 47 finding 101 [place] [address] [phone] Laboratory test 10/03/2014 [facility] Digoxin 0.8 ng/ml N 0.8- 2.0 finding 101 [place] [address] [phone] Basic Metabolic 09/21/2014 Sodium 137 mmol/L N [...] 74.2 N >60 Egfr 95.4 N >60 48 Vitamin B12 And Folate Serum 09/21/2014 Vitamin B12 321 pg/mL N 180-914 49 Folic Acid (Folate) 15.47 ng/mL N >3.99 [...] 68.9 N >60 Egfr 88.6 N >60 50 Laboratory test finding 07/19/2014 Digoxin 1.1 ng/ml [...] 77.7 N >60 Egfr 100.0 N >60 51 Basic Metabolic Panel 03/20/2014 Sodium 138 mmol/L N 133-145 Potassium 4.2 mmol/L N 3.5-5.0 52 Chloride 105 mmol/L N 101-111 Co2 Carbon Dioxide 26 mmol/L N 22-32 Anion Gap 7 mmol/L N 2-11 Glucose 92 mg/dL N 70-100 Blood Urea Nitrogen 16 mg/dL N 6-24 Creatinine 0.69 mg/dL N 0.51-0.95 BUN/Creatinine Ratio 23.2 High 8-20 Calcium 9.4 mg/dL N 8.6-10.3 Egfr Non- 82.9 N >60 Egfr 106.7 N >60 53 Laboratory test finding 03/20/2014 Digoxin 0.9 ng/ml [...] 74.4 N >60 Egfr 95.7 N >60 54 Laboratory test finding 02/27/2014 TSH (Thyroid 0.99 [...] ng/ml Low 0.8-2.0 Basic Metabolic Panel 12/06/2012 [facility] Sodium 139 mmol/L 133-[address] [place] [address] [phone] Potassium 3.9 mmol/L 3.5-5.0 Chloride 107 mmol/L 101-111 Co2 Carbon Dioxide 26.0 mmol/L 22-32 Anion Gap 6.0 mmol/L 2-11 Glucose 115 mg/dL High 70-100 Blood Urea Nitrogen 15 mg/dL 6-24 Creatinine 0.70 mg/dL 0.50-1.40 BUN/Creatinine Ratio 21.4 High 8-20 Calcium 9.0 mg/dL 8.1-9.9 Egfr Non- 82.0 >60 Egfr 105.5 >60 55 Comp Metabolic Panel 07/05/2012 [facility] Sodium 143 mmol/L 133-145 [address] [place] [address] [phone] Potassium 4.0 mmol/L 3.5-5.0 Chloride 110 mmol/L [...] Egfr Non- 82.0 >60 Egfr 105.5 >60 56 Lipid Profile 07/05/2012 [facility] Triglycerides 86 mg/dL 40 -200 (Trig/Chol/HDL) [address] [place] [address] [phone] Cholesterol 180 mg/dL Less than 200 HDL Cholesterol 42 mg/dL 40-60 57 Cholesterol/HDL Ratio 4.3 Average 1-4.44 LDL Cholesterol 120.8 mg/dL High Less Than 100 58 Laboratory test 07/05/2012 [facility] Creatine Kinase 41 U/L 0-200 finding [address] [place] [address] [phone] Basic Metabolic 02/10/2012 [facility] Sodium 138 133-[address] mmol/[place] [address] [phone] Potassium 4.0 mmol/L 3.5-5.0 Chloride 107 mmol/L 101-111 Co2 Carbon Dioxide 25.0 mmol/L 22-32 Anion Gap 6.0 mmol/L 2-11 Glucose 111 mg/dL High 70-100 Blood Urea Nitrogen 14 mg/dL 6-24 Creatinine 0.80 mg/dL 0.50-1.40 BUN/Creatinine Ratio 17.5 8-20 Calcium 8.9 mg/dL 8.1-9.9 Egfr Non- 70.5 >60 Egfr 90.7 >60 59 Laboratory test 02/10/2012 [facility] Digoxin < 0.1 Low 0.5- 1.5 [address] NG/[place] [address] [phone] Lipid Panel - 01/12/2012 [facility] CPK (Creatine 57 U/L 0- [address] Kinase) [place] [address] [phone] Comp Metabolic 01/12/2012 [facility] Sodium 140 mmol/L 135- [address] [place] [address] [phone] Potassium 4.2 mmol/L 3.5-5.0 Chloride 107 mmol/L 101-111 Co2 (Carbon Dioxide) 27.0 mmol/L 22-32 Anion Gap 6.0 mmol/L 2-11 61 Glucose 89 mg/dL 70-100 BUN 12 mg/dL 6-24 Creatinine 0.8 mg/dL 0.50-1.40 One Over Creatinine 1.25 BUN/Creatinine Ratio 15.0 8-20 Calcium 9.1 mg/dL 8.1-9.9 Total Protein 6.0 GM/DL Low 6.2-8.1 Albumin 3.6 GM/DL 3.2-5.2 Globulin 2.4 GM/DL 2-4 Albumin/Globulin Ratio 1.5 1-3 Bilirubin Total 0.6 mg/dL 0.4-1.5 62 Alkaline Phosphatase 62 U/L 30-110 Alt (SGPT) 14 U/L 14-54 Ast (Sgot) 17 U/L 12-42 eGFR Non- 70.5 > 60 eGFR 90.7 > 60 63 Lipid Profile 01/12/2012 [facility] Triglyceride 82 mg/dL 40- 200 (Trig/Chol/HDL) [address] [place] [address] [phone] Cholesterol 146 mg/dL Less Than 200 64 High Density Lipoprotein 35 mg/dL Low 40-60 65 Cholesterol/HDL Ratio 4.17 AVERAGE 1-4.44 Low Density Lipoprotein 95 mg/dL Less Than 100 66 Laboratory test 01/12/2012 [facility] Magnesium 2.2 mg/dL 1.7 -2.6 finding 101 [place] [address] [phone] Laboratory test 12/16/2011 [facility] Digoxin < 0.1 NG/ML Low 0.5-1.5 67 finding [address] [place] [address] [phone] Basic Metabolic 12/16/2011 [facility] Sodium 135 mmol/L 135- 145 Panel [address] [place] [address] [phone] Potassium 3.9 mmol/L 3.5-5.0 Chloride 105 mmol/L 101-111 Co2 (Carbon Dioxide) 24.0 mmol/L 22-32 Anion Gap 6.0 mmol/L 2-11 68 Glucose 118 mg/dL High 70-100 BUN 14 mg/dL 6-24 Creatinine 0.9 mg/dL 0.50-1.40 One Over Creatinine 1.11 BUN/Creatinine Ratio 15.6 8-20 Calcium 8.9 mg/dL 8.1-9.9 eGFR Non- 61.5 > 60 eGFR 79.2 > 60 69 Laboratory test 09/11/2011 [facility] Digoxin < 0.1 NG/ML Low 0.5-1.5 70 finding 101 [place] [address] [phone] Laboratory test 08/31/2011 [facility] TSH 0.84 MIU/ML 0.34- 5.60 finding 101 [place] [address] [phone] Digoxin 0.2 NG/ML Low 0.5-1.5 71 CBC Auto Diff 08/31/2011 [facility] White Blood 6.5 CUMM 4.8- 10.8 [address] [facility] [place] [address] [phone] Red Cell Count 3.98 CUMM Low 4.2-5.4 [...] Abs Basophils 0 0-0.2 Laboratory test 08/31/2011 [facility] Magnesium 2.1 mg/dL 1.7 -2.6 finding 101 [place] [address] [phone] Basic Metabolic 08/31/2011 [facility] Sodium 142 mmol/L 135- 145 Panel 101 [place] [address] [phone] Potassium 4.3 mmol/L 3.5-5.0 Chloride 107 mmol/L 101-111 Co2 (Carbon Dioxide) 26.0 mmol/L 22-32 Anion Gap 9.0 mmol/L 2-11 72 Glucose 87 mg/dL 70-100 BUN 19 mg/dL 6-24 Creatinine 0.8 mg/dL 0.50-1.40 One Over Creatinine 1.25 BUN/Creatinine Ratio 23.8 High 8-20 Calcium 9.6 mg/dL 8.1-9.9 eGFR Non- 70.5 > 60 eGFR 90.7 > 60 73 Laboratory test 08/31/2011 [facility] Troponin-I 0 NG/ML 0- 0.06 74 finding 101 [place] [address] [phone] Lipid Profile 07/24/2011 [facility] Triglyceride 106 mg/dL 40 -200 (Trig/Chol/HDL) [address] [place] [address] [phone] Cholesterol 150 mg/dL Less Than 200 75 High Density Lipoprotein 39 mg/dL Low 40-60 76 Cholesterol/HDL Ratio 3.85 AVERAGE 1-4.44 Low Density Lipoprotein 90 mg/dL Less Than 100 77 Comp Metabolic Panel 06/11/2011 [facility] Sodium 139 mmol/L 135-[address] [place] [address] [phone] Potassium 4.2 mmol/L 3.5-5.0 Chloride 104 mmol/L 101-111 Co2 (Carbon Dioxide) 27.0 mmol/L 22-32 Anion Gap 8.0 mmol/L 2-11 78 Glucose 90 mg/dL 70-100 BUN 16 mg/dL 6-24 Creatinine 0.8 mg/dL 0.50-1.40 One Over Creatinine 1.25 BUN/Creatinine Ratio 20.0 8-20 Calcium 8.7 mg/dL 8.1-9.9 Total Protein 6.4 GM/DL 6.2-8.1 Albumin 3.7 GM/DL 3.2-5.2 Globulin 2.7 GM/DL 2-4 Albumin/Globulin Ratio 1.4 1-3 Bilirubin Total 0.5 mg/dL 0.4-1.5 79 Alkaline Phosphatase 55 U/L 30-110 Alt (SGPT) 13 U/L Low 14-54 Ast (Sgot) 18 U/L 12-42 eGFR Non- 70.5 > 60 eGFR 90.7 > 60 80 Laboratory test 06/11/2011 [facility] CPK (Creatine 84 U/L 0- [address] Kinase) [place] [address] [phone] CBC Auto Diff 06/11/2011 [facility] White Blood 5.8 CUMM 4.8- 10.[address] [place] [address] [phone] Red Cell Count 4.00 CUMM Low 4.2-5.4 [...] Eosinophils 0.2 0-0.6 Abs Basophils 0 0-0.2 Lipid Profile 06/11/2011 [facility] Triglyceride 80 mg/dL 40- 200 (Trig/Chol/HDL) [address] [place] [address] [phone] Cholesterol 168 mg/dL Less Than 200 81 High Density Lipoprotein 41 mg/dL 40-60 82 Cholesterol/HDL Ratio 4.10 AVERAGE 1-4.44 Low Density Lipoprotein 111 mg/dL High Less Than 100 83 Laboratory test finding 06/11/2011 [facility] Alt (SGPT) 14 U/L 14-[address] [place] [address] [phone] Ast (Sgot) 18 U/L 12-42 CBC Auto Diff 12/05/2010 [facility] White Blood 6.5 CUMM 4.8- 10.[address] [place] [address] [phone] Red Cell Count 4.13 CUMM Low 4.2-5.4 [...] Basophils 0 0-0.2 Comp Metabolic Panel 12/05/2010 [facility] Sodium 140 mmol/L 135-145 [address] [place] [address] [phone] Potassium 3.9 mmol/L 3.5-5.0 Chloride 108 mmol/L 101-111 Co2 (Carbon Dioxide) 27.0 mmol/L 22-32 Anion Gap 5.0 mmol/L 2-11 84 Glucose 93 mg/dL 70-100 BUN 16 mg/dL 6-24 Creatinine 0.80 mg/dL 0.50-1.40 One Over Creatinine 1.20 BUN/Creatinine Ratio 20.0 8-20 Calcium 8.9 mg/dL 8.1-9.9 Total Protein 6.5 GM/DL 6.2-8.1 Albumin 3.9 GM/DL 3.2-5.2 Globulin 2.6 GM/DL 2-4 Albumin/Globulin Ratio 1.5 1-3 Bilirubin Total 0.6 mg/dL 0.4-1.5 85 Alkaline Phosphatase 67 U/L 30-110 Alt (SGPT) 15 U/L 14-54 Ast (Sgot) 21 U/L 12-42 eGFR Non- 70.7 > 60 eGFR 90.9 > 60 86 Lipid Profile 12/05/2010 [facility] Triglyceride 73 mg/dL 40- 200 (Trig/Chol/HDL) [address] [place] [address] [phone] Cholesterol 152 mg/dL Less Than 200 87 High Density Lipoprotein 40 mg/dL 40-60 88 Cholesterol/HDL Ratio 3.80 AVERAGE 1-4.44 Low Density Lipoprotein 97 mg/dL Less Than 100 89 Laboratory test 12/05/2010 [facility] CPK (Creatine 102 U/L 0 -[address] Kinase) [place] [address] [phone] Urine Culture & 08/13/2010 [facility] Urine Culture NG 90 Sensit[address] [facility] [place] [address] [phone] Urinalysis 08/13/2010 [facility] Ua Color ORANGE Yellow W/Microscopic [address] [place] [address] [phone] Appearance-Urine CLEAR Clear Specific [place]-Ur 1.005 Low 1.010-1.030 Esterase-Urine 3+ Abnormal Negative Nitrite POSITIVE Abnormal Negative [id number] NEGATIVE Negative Protein-Urine NEGATIVE Negative PH-Urine 7.0 5-9 Blood-Urine 2+ Abnormal Negative Ketones-Urine NEGATIVE Negative Bilirubin-Ur NEGATIVE Negative Glucose-Urine NEGATIVE Negative WBC-Urine TNTC Abnormal 0-5 RBC-Urine 5-10 Abnormal 0-2 Epith Cells-Ur RARE None Bacteria-Urine 1+ None Laboratory test 01/06/2010 [facility] Thyroxine Free 0.88 NG/ML 0.61-1.24 finding 101 [place] [address] [phone] TSH 1.48 MIU/ML 0.34-5.60 Laboratory test 10/10/2009 [facility] Alt (SGPT) 15 U/L 14- 54 finding 101 [place] [address] [phone] Lipid Profile 10/10/2009 [facility] Triglyceride 50 mg/dL 40- 200 (Trig/Chol/HDL) 101 [place] [address] [phone] Cholesterol 151 mg/dL Less Than 200 91 High Density Lipoprotein 47 mg/dL 40-60 92 Cholesterol/HDL Ratio 3.21 AVERAGE 1-4.44 Low Density Lipoprotein 94 mg/dL Less Than 100 93 Comp Metabolic Panel 10/10/2009 [facility] Sodium 138 mmol/L 135-145 [address] [place] [address] [phone] Potassium 4.0 mmol/L 3.5-5.0 Chloride 105 mmol/L 101-111 Co2 (Carbon Dioxide) 28.0 mmol/L 22-32 Anion Gap 5.0 mmol/L 2-11 94 Glucose 96 mg/dL 70-100 95 BUN 10 mg/dL 6-24 Creatinine 0.80 mg/dL 0.50-1.40 One Over Creatinine 1.20 BUN/Creatinine Ratio 12.5 8-20 Calcium 8.9 mg/dL 8.1-9.9 96 Total Protein 5.8 GM/DL Low 6.2-8.1 Albumin 3.9 GM/DL 3.2-5.2 Globulin 1.9 GM/DL Low 2-4 Albumin/Globulin Ratio 2.1 1-3 Bilirubin Total 0.5 mg/dL 0.4-1.5 97 Alkaline Phosphatase 55 U/L 30-110 Ast (Sgot) 23 U/L 12-42 eGFR Non- 75.4 > 60 eGFR 91.2 > 60 98 Lipid Panel - 10/10/2009 [facility] CPK (Creatine 125 U/L 0- [address] Kinase) [place] [address] [phone] Lipid Profile 06/12/2009 [facility] Triglyceride 60 mg/dL 40- 200 (Trig/Chol/HDL [address] ) [place] [address] [phone] Cholesterol 155 mg/dL Less Than 200 99 High Density Lipoprotein 51 mg/dL 40-60 100 Cholesterol/HDL Ratio 3.04 AVERAGE 1-4.44 Low Density Lipoprotein 92 mg/dL Less Than 100 101 Comp Metabolic Panel 06/12/2009 [facility] Sodium 136 mmol/L 135-[address] [place] [address] [phone] Potassium 4.5 mmol/L 3.5-5.0 Chloride 103 mmol/L 101-111 Co2 (Carbon Dioxide) 29.0 mmol/L 22-32 Anion Gap 4.0 mmol/L 2-11 102 Glucose 100 mg/dL 70-100 103 BUN 12 mg/dL 6-24 Creatinine 0.90 mg/dL 0.50-1.40 One Over Creatinine 1.10 BUN/Creatinine Ratio 13.3 8-20 Calcium 9.1 mg/dL 8.1-9.9 104 Total Protein 6.3 GM/DL 6.2-8.1 Albumin 3.8 GM/DL 3.2-5.2 Globulin 2.5 GM/DL 2-4 Albumin/Globulin Ratio 1.5 1-3 Bilirubin Total 0.8 mg/dL 0.4-1.5 105 Alkaline Phosphatase 56 U/L 30-110 Alt (SGPT) 20 U/L 14-54 Ast (Sgot) 27 U/L 12-42 eGFR Non- 65.8 > 60 eGFR 79.6 > 60 106 Lipid Panel - 06/12/2009 [facility] CPK (Creatine 145 U/L 0- [address] Kinase) [place] [address] [phone] Lipid Panel - 03/06/2009 [facility] CPK (Creatine 133 U/L 0- [address] Kinase) [place] [address] [phone] Comp Metabolic 03/06/2009 [facility] Sodium 141 135-[address] mmol/[place] [address] [phone] Potassium 4.4 mmol/L 3.5-5.0 Chloride 105 mmol/L 101-111 Co2 (Carbon Dioxide) 30.0 mmol/L 22-32 Anion Gap 6.0 mmol/L 2-11 107 Glucose 94 mg/dL 70-100 108 BUN 12 mg/dL 6-24 Creatinine 0.70 mg/dL 0.50-1.40 One Over Creatinine 1.40 BUN/Creatinine Ratio 17.1 8-20 Calcium 9.1 mg/dL 8.1-9.9 109 Total Protein 6.8 GM/DL 6.2-8.1 Albumin 4.0 GM/DL 3.2-5.2 Globulin 2.8 GM/DL 2-4 Albumin/Globulin Ratio 1.4 1-3 Bilirubin Total 0.9 mg/dL 0.4-1.5 110 Alkaline Phosphatase 66 U/L 30-110 Alt (SGPT) 21 U/L 14-54 Ast (Sgot) 25 U/L 12-42 eGFR Non- 88.2 > 60 eGFR 106.7 > 60 111 Lipid Profile 03/06/2009 [facility] Triglyceride 81 mg/dL 40- 200 (Trig/Chol/HDL) [address] [place] [address] [phone] Cholesterol 187 mg/dL Less Than 200 112 High Density Lipoprotein 54 mg/dL 40-60 113 Cholesterol/HDL Ratio 3.46 AVERAGE 1-4.44 Low Density Lipoprotein 117 mg/dL High Less Than 100 114 CBC With 12/26/2008 [facility] White Blood 5.9 CUMM 4.8-10.8 115 Electronic Diff [address] [place] [address] [phone] Red Cell Count 3.87 CUMM Low 4.2-5.4 [...] Basophils 0 0-0.2 Comp Metabolic Panel 12/26/2008 [facility] Sodium 138 mmol/L 135-145 [address] [place] [address] [phone] Potassium 4.7 mmol/L 3.5-5.0 Chloride 102 mmol/L 101-111 Co2 (Carbon Dioxide) 30.0 mmol/L 22-32 Anion Gap 6.0 mmol/L 2-11 116 Glucose 92 mg/dL 70-100 117 BUN 14 mg/dL 6-24 Creatinine 0.72 mg/dL 0.50-1.40 One Over Creatinine 1.30 BUN/Creatinine Ratio 19.4 8-20 Calcium 8.8 mg/dL 8.1-9.9 118 Total Protein 6.8 GM/DL 6.2-8.1 Albumin 3.7 GM/DL 3.2-5.2 Globulin 3.1 GM/DL 2-4 Albumin/Globulin Ratio 1.2 1-3 Bilirubin Total 0.9 mg/dL 0.4-1.5 119 Alkaline Phosphatase 62 U/L 30-110 Alt (SGPT) 20 U/L 14-54 Ast (Sgot) 24 U/L 12-42 eGFR Non- 85.4 > 60 eGFR 103.3 > 60 120 Lipid Profile 12/26/2008 [facility] Triglyceride 68 mg/dL 40- 200 (Trig/Chol/HDL) [address] [place] [address] [phone] Cholesterol 267 mg/dL High Less Than 200 121 High Density Lipoprotein 48 mg/dL 40-60 122 Cholesterol/HDL Ratio 5.56 AVERAGE High 1-4.44 Low Density Lipoprotein 205 mg/dL High Less Than 100 123 Laboratory test 12/26/2008 [facility] TSH 2.21 MIU/ML 0.34- 5.60 finding [address] [place] [address] [phone] Lipid Profile 10/10/2008 [facility] Triglyceride 65 mg/dL 40- 200 124 (Trig/Chol/HDL) [address] [place] [address] [phone] Cholesterol 149 mg/dL Less Than 200 125 High Density Lipoprotein 46 mg/dL 40-60 126 Cholesterol/HDL Ratio 3.24 AVERAGE 1-4.44 Low Density Lipoprotein 90 mg/dL Less Than 100 127 Liver Function 10/10/2008 [facility] Total Protein 6.1 GM/DL Low 6.2-8.1 Panel 101 [place] [address] [phone] Albumin 3.7 GM/DL 3.2-5.2 Globulin 2.4 GM/DL 2-4 Albumin/Globulin Ratio 1.5 1-3 Bilirubin Total 0.8 mg/dL 0.4-1.5 128 Bilirubin Direct < 0.1 mg/dL Low 0.1-0.5 Indirect Bilirubin (SEE NOTE) mg/dL 0.1-0.75 129 Alkaline Phosphatase 66 U/L 30-110 Alt (SGPT) 19 U/L 14-54 Ast (Sgot) 23 U/L 12-42 Lipid Profile 04/24/2008 [facility] Triglyceride 52 mg/dL 40- 200 (Trig/Chol/HDL) [address] [place] [address] [phone] Cholesterol 132 mg/dL Less Than 200 130 High Density Lipoprotein 43 mg/dL 40-60 131 Cholesterol/HDL Ratio 3.07 AVERAGE 1-4.44 Low Density Lipoprotein 79 mg/dL Less Than 100 132 Comp Metabolic Panel 04/24/2008 [facility] Sodium 136 mmol/L 135-145 [address] [place] [address] [phone] Potassium 4.7 mmol/L 3.5-5.0 Chloride 105 mmol/L 101-111 Co2 (Carbon Dioxide) 29.0 mmol/L 22-32 Anion Gap 2.0 mmol/L 2-11 133 Glucose 93 mg/dL 70-100 134 BUN 11 mg/dL 6-24 Creatinine 0.80 mg/dL 0.50-1.40 One Over Creatinine 1.20 BUN/Creatinine Ratio 13.8 8-20 Calcium 8.7 mg/dL 8.1-9.9 135 Total Protein 6.0 GM/DL Low 6.2-8.1 Albumin 3.4 GM/DL 3.2-5.2 Globulin 2.6 GM/DL 2-4 Albumin/Globulin Ratio 1.3 1-3 Bilirubin Total 0.7 mg/dL 0.4-1.5 Alkaline Phosphatase 62 U/L 30-110 Alt (SGPT) 19 U/L 14-54 Ast (Sgot) 23 U/L 12- Lipid Panel - 04/24/2008 [facility] CPK (Creatine 90 U/L 0- [address] Kinase) [place] [address] [phone] Lipid Profile 01/31/2008 [facility] Triglyceride 57 mg/dL 40- 200 (Trig/Chol/HDL [address] ) [place] [address] [phone] Cholesterol 142 mg/dL Less Than 200 136 High Density Lipoprotein 35 mg/dL Low 40-60 137 Cholesterol/HDL Ratio 4.06 AVERAGE 1-4.44 Low Density Lipoprotein 96 mg/dL Less Than 100 138 Comp Metabolic Panel 01/31/2008 [facility] Sodium 139 mmol/L 135-[address] [place] [address] [phone] Potassium 4.1 mmol/L 3.5-5.0 Chloride 105 mmol/L 101-111 Co2 (Carbon Dioxide) 29.0 mmol/L 22-32 Anion Gap 5.0 mmol/L 2-11 139 Glucose 92 mg/dL 70-100 140 BUN 12 mg/dL 6-24 Creatinine 0.8 mg/dL 0.5-1.4 One Over Creatinine 1.25 BUN/Creatinine Ratio 15.0 8-20 Calcium 8.6 mg/dL 8.1-9.9 141 Total Protein 6.4 GM/DL 6.2-8.1 Albumin 3.8 GM/DL 3.2-5.2 Globulin 2.6 GM/DL 2-4 Albumin/Globulin Ratio 1.5 1-3 Bilirubin Total 0.8 mg/dL 0.4-1.5 Alkaline Phosphatase 64 U/L 30-110 Alt (SGPT) 21 U/L 14-54 Ast (Sgot) 24 U/L 12- Lipid Panel - 01/31/2008 [facility] CPK (Creatine 93 U/L 0- [address]) [place] [address] [phone] Comp Metabolic 10/13/2007 [facility] Sodium 136 135-[address] mmol/[place] [address] [phone] Potassium 4.1 mmol/L 3.5-5.0 Chloride 109 mmol/L 101-111 Co2 (Carbon Dioxide) 31.0 mmol/L 22-32 Anion Gap -4.0 mmol/L Low 2-11 142 Glucose 97 mg/dL 70-105 BUN 13 mg/dL 6-24 Creatinine 0.9 mg/dL 0.5-1.4 One Over Creatinine 1.11 BUN/Creatinine Ratio 14.4 8-20 Calcium 8.4 mg/dL 8.1-9.9 143 Total Protein 6.7 GM/DL 6.2-8.1 Albumin 3.8 GM/DL 3.2-5.2 Globulin 2.9 GM/DL 2-4 Albumin/Globulin Ratio 1.3 1-3 Bilirubin Total 0.7 mg/dL 0.4-1.5 Alkaline Phosphatase 63 U/L 30-110 Alt (SGPT) 24 U/L 14-54 Ast (Sgot) 30 U/L 12-42 Lipid Profile 10/13/2007 [facility] Triglyceride 56 mg/dL 40- 200 (Trig/Chol/HDL) [address] [place] [address] [phone] Cholesterol 120 mg/dL Less Than 200 144 High Density Lipoprotein 40 mg/dL 40-60 145 Cholesterol/HDL Ratio 3.00 AVERAGE 1-4.44 Low Density Lipoprotein 69 mg/dL Less Than 100 146 Laboratory test 10/13/2007 [facility] TSH 2.97 MIU/ML 0.34- 5.[address] [place] [address] [phone] CBC With 10/13/2007 [facility] White Blood 5.2 CUMM 4.8-10.[address] [place] [address] [phone] Red Cell Count 4.06 CUMM Low 4.2-5.4 [...] Eosinophils 0.2 0-0.6 Abs Basophils 0 0-0.2 Lipid Panel - [facility] 08/01/2007 [facility] CPK (Creatine 114 U/L 0-[address] Kinase) [place] [address] [phone] Comp Metabolic 08/01/2007 [facility] One Over 1.[address] [place] [address] [phone] Anion Gap 3.0 mmol/L 2-11 147 Albumin/Globulin Ratio 1.2 1-3 Albumin 3.6 GM/DL [...] Creatinine 0.9 mg/dL 0.5-1.4 Lipid Profile 08/01/2007 [facility] Cholesterol/HDL 3.40 1- 4.44 (Trig/Chol/HDL) [address] [place] [address] [phone] Cholesterol 136 mg/dL Less Than 200 148 Triglyceride 66 mg/dL 40-200 High Density Lipoprotein 40 mg/dL 40-60 Low Density Lipoprotein 83 mg/dL Less Than 100 149 Lipid Panel - 03/09/2007 [facility] CPK (Creatine 122 U/L 0- 170 [address] Kinase) [place] [address] [phone] Comp Metabolic 03/09/2007 [facility] One Over 1.[address] [place] [address] [phone] Anion Gap 4.0 mmol/L 2-11 151 Albumin/Globulin Ratio 1.2 1-3 Albumin 3.9 GM/DL [...] High 8-20 Creatinine 1.0 mg/dL 0.5-1.4 Lipid Profile 03/09/2007 [facility] Cholesterol/HDL 3.00 1- 4.44 (Trig/Chol/HDL) [address] [place] [address] [phone] Cholesterol 114 mg/dL Less Than 200 152 Triglyceride 61 mg/dL 40-200 High Density Lipoprotein 38 mg/dL Low 40-60 153 Low Density Lipoprotein 64 mg/dL Less Than 100 154 Laboratory test 03/09/2007 [facility] TSH 3.17 MIU/ML 0.34- 5.[address] [place] [address] [phone] CBC W/ 03/09/2007 [facility] White Blood 6.0 CUMM 4.8-10.8 155 Electronic Diff [address] [place] [address] [phone] Abs Basophils 0 0-0.2 Abs Eosinophils 0.1 [...] Redcell Distribution WDTH 13 % 10.5-15 Lipid Panel - JFM 12/08/2006 [facility] CPK (Creatine 90 U/L 0-[address] Kinase) [place] [address] [phone] Comp Metabolic 12/08/2006 [facility] One Over 1.[address] [place] [address] [phone] Anion Gap 6.0 mmol/L 2-11 156 Albumin/Globulin Ratio 1.2 1-3 Albumin 3.8 GM/DL [...] Creatinine 1.0 mg/dL 0.5-1.4 Lipid Profile 12/08/2006 [facility] Cholesterol/HDL 3.46 1- 4.44 (Trig/Chol/HDL) [address] [place] [address] [phone] Cholesterol 135 mg/dL Less Than 200 157 Triglyceride 72 mg/dL 40-200 High Density Lipoprotein 39 mg/dL Low 40-60 158 Low Density Lipoprotein 82 mg/dL Less Than 100 159 Lipid Profile 10/07/2005 [facility] Cholesterol 124 mg/dL Less 160, (Trig/Chol/HDL) [address] Than [address] [place] [address] 200 [phone] Triglyceride 62 mg/dL 40-200 High Density Lipoprotein 38 mg/dL Low 40-60 162 Low Density Lipoprotein 74 mg/dL Less Than 100 163 Cholesterol/HDL Ratio 3.26 AVERAGE 1-4.44 Liver Function 10/07/2005 [facility] Albumin/Globulin Ratio 1.4 1-[address] [place], [place] [id number] [phone] Albumin 3.9 GM/DL 3.2-5.2 Alkaline Phosphatase 69 U/L 30-110 Alt (SGPT) 23 U/L 14-54 Ast (Sgot) 25 U/L 12-42 Bilirubin Direct 0.1 mg/dL 0.1-0.5 Globulin 2.7 GM/DL 2-4 Indirect Bilirubin 0.6 mg/dL 0.1-0.75 Bilirubin Total 0.7 mg/dL 0.4-1.5 Total Protein 6.6 GM/DL 6.2-8.1 1 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 Vehicle 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 2 Because ethnic data is not always readily [...] 15-29 5 Kidney failure <15 (or dialysis) 3 Because ethnic data is not always readily [...] 15-29 5 Kidney failure <15 (or dialysis) 4 Desirable: <150 Borderline High: 150-199 High: 200-499 Very High: >500 5 Desirable: <200 Borderline High: 200-239 High: >239 6 Low: <40 Desirable: 40-60 High: >60 7 Desirable: <100 Near Optimal: 100-129 Borderline High: 130-159 High: 160-189 Very High: >189 8 REFERENCE VALUE 70-750 (Supine) 200-1700 (Standing) 9 REFERENCE VALUE <111 (Supine) <141 (Standing) 10 REFERENCE VALUE <30 (no postural change) ADDITIONAL INFORMATION PLEASE NOTE: High/Low flagging is based on supine normal values. This test was developed and its performance characteristics determined by [facility] in a manner consistent with CLIA requirements. This test has not been cleared or approved by the U.S. Food and Drug Administration. Test Performed by: [facility] [address] [place] [address] 11 FASTING 12 Desirable: <150 Borderline High: 150-199 High: 200-499 Very High: >500 13 Desirable: <200 Borderline High: 200-239 High: >239 14 Low: <40 Desirable: 40-60 High: >60 15 Desirable: <100 Near Optimal: 100-129 Borderline High: 130-159 High: 160-189 Very High: >189 16 Because ethnic data is not always readily [...] 15-29 5 Kidney failure <15 (or dialysis) 17 FASTING 18 AM 8.7-22.4 PM <10 19 FASTING 20 FASTING 21 Because ethnic data is not always [...] 130-159 High: 160-189 Very High: >189 26 Because ethnic data is not always readily [...] 15-29 5 Kidney failure <15 (or dialysis) 27 Because ethnic data is not always readily [...] 15-29 5 Kidney failure <15 (or dialysis) 28 Desirable <150 Borderline high 150-199 High 200-499 Very High >500 29 Desirable <200 Borderline high 200-239 High >239 30 Low <40 Desirable: 40-60 High: >60 31 Desirable: <100 mg/dL Near Optimal: 100-129 mg/dL Borderline High: 130-159 mg/dL High: 160-189 mg/dL Very High: >189 mg/dL 32 FASTING cc pmd 33 Because ethnic data is not always readily [...] 15-29 5 Kidney failure <15 (or dialysis) 34 Desirable <150 Borderline high 150-199 High 200-499 Very High >500 35 Desirable <200 Borderline high 200-239 High >239 36 Low <40 Desirable: 40-60 High: >60 37 Desirable: <100 mg/dL Near Optimal: 100-129 mg/dL Borderline High: 130-159 mg/dL High: 160-189 mg/dL Very High: >189 mg/dL 38 FASTING cc pmd 39 FASTING cc pmd 40 FASTING cc pmd 41 cc pmd in 3-4 weeks cc pmd 42 Because ethnic data is not always readily [...] 15-29 5 Kidney failure <15 (or dialysis) 43 Desirable <150 Borderline high 150-199 High 200-499 Very High >500 44 Desirable <200 Borderline high 200-239 High >239 45 Low <40 Desirable: 40-60 High: >60 46 Desirable: <100 mg/dL Near Optimal: 100-129 mg/dL Borderline High: 130-159 mg/dL High: 160-189 mg/dL Very High: >189 mg/dL 47 cc pmd in 3-4 weeks cc pmd 48 Because ethnic data is not always readily [...] 15-29 5 Kidney failure <15 (or dialysis) 49 Normal Range 180 to 914 Indeterminate Range 145 to 180 Deficient Range <145 50 Because ethnic data is not always readily [...] 15-29 5 Kidney failure <15 (or dialysis) 51 Because ethnic data is not always readily [...] 15-29 5 Kidney failure <15 (or dialysis) 52 Potassium reference range changed effective 03/11/14 53 Because ethnic data is not always [...] 5 Kidney failure <15 (or dialysis) 54 Because ethnic data is not always readily [...] 15-29 5 Kidney failure <15 (or dialysis) 55 Because ethnic data is not always [...] 5 Kidney failure <15 (or dialysis) 57 HDL Interpretation: Undesirable: High Risk: Less than 40 MG/DL Desirable: Low Risk: Greater than 60 MG/DL 58 LDL Interpretation: Low Risk Optimal Level: LDL Less than 100 MG/DL Near or Above Optimal: LDL 100-129 MG/DL Borderline High Risk: LDL 130-159 MG/DL High Risk: LDL 160-189 MG/DL Very High Risk: LDL Greater than 189 MG/DL 59 Because ethnic data is not always [...] 5 Kidney failure <15 (or dialysis) 60 Levels at the lower end of the range may be needed for symptomatic heart failure and levels at the higher end of the range for rate control. 61 Anion gap measurement may be of limited value in the presence of any alkalosis, especially in a combined acid base disorder. . 62 A metabolite of Naproxen, O-desmethylnaproxen, has been shown to interfere with the Jendrassik-[place] method for measuring total bilirubin. Samples from patients who have taken Naproxen have shown spurious elevation in total bilirubin levels. 63 Because ethnic data is not always [...] 5 Kidney failure <15 (or dialysis) 64 CHOLESTEROL INTERPRETATION: Desirable: Less than 200 MG/DL Borderline-High Risk: 200-239 MG/DL High-Risk: 240 MG/DL and over 65 HDL INTERPRETATION: Undesirable: High Risk: Less than 40 MG/DL Desirable: Low Risk: Greater than 60 MG/DL 66 LDL INTERPRETATION: Low Risk Optimal Level: LDL Less than 100 MG/DL Near or Above Optimal: LDL 100-129 MG/DL Borderline High Risk: LDL 130-159 MG/DL High Risk: LDL 160-189 MG/DL Very High Risk: LDL Greater than 189 MG/DL 67 *LEVELS AT THE LOWER END OF THE RANGE MAY BE NEEDED FOR SYMPTOMATIC HEART FAILURE AND LEVELS AT THE HIGHER END OF THE RANGE FOR RATE CONTROL.* 68 Anion gap measurement may be of limited value in the presence of any alkalosis, especially in a combined acid base disorder. . 69 Because ethnic data is not always readily [...] 15-29 5 Kidney failure <15 (or dialysis) 70 *LEVELS AT THE LOWER END OF THE RANGE MAY BE NEEDED FOR SYMPTOMATIC HEART FAILURE AND LEVELS AT THE HIGHER END OF THE RANGE FOR RATE CONTROL.* 71 *LEVELS AT THE LOWER END OF THE RANGE MAY BE NEEDED FOR SYMPTOMATIC HEART FAILURE AND LEVELS AT THE HIGHER END OF THE RANGE FOR RATE CONTROL.* 72 Anion gap measurement may be of [...] 5 Kidney failure <15 (or dialysis) 74 New Reference Range and Interpretation effective 02/10/2002 TnI (ng/ml) INTERPRETATION Less Than 0.06 ng/mL NOT SUPPORTIVE OF DIAGNOSIS OF [place] 0.06 - 0.50 ng/ml INDETERMINATE: SUGGEST SERIAL STUDIES IF CLINICALLY INDICATED. Greater than 0.5 ng/mL CONSISTENT WITH DIAGNOSIS OF [place] . 75 CHOLESTEROL INTERPRETATION: Desirable: Less than 200 MG/DL Borderline-High Risk: 200-239 MG/DL High-Risk: 240 MG/DL and over 76 HDL INTERPRETATION: Undesirable: High Risk: Less than 40 MG/DL Desirable: Low Risk: Greater than 60 MG/DL 77 LDL INTERPRETATION: Low Risk Optimal Level: LDL Less than 100 MG/DL Near or Above Optimal: LDL 100-129 MG/DL Borderline High Risk: LDL 130-159 MG/DL High Risk: LDL 160-189 MG/DL Very High Risk: LDL Greater than 189 MG/DL 78 Anion gap measurement may be of limited value in the presence of any alkalosis, especially in a combined acid base disorder. . 79 A metabolite of Naproxen, O-desmethylnaproxen, has been shown to interfere with the Jendrassik-[place] method for measuring total bilirubin. Samples from patients who have taken Naproxen have shown spurious elevation in total bilirubin levels. 80 Because ethnic data is not always readily [...] 15-29 5 Kidney failure <15 (or dialysis) 81 CHOLESTEROL INTERPRETATION: Desirable: Less than 200 MG/DL Borderline-High Risk: 200-239 MG/DL High-Risk: 240 MG/DL and over 82 HDL INTERPRETATION: Undesirable: High Risk: Less than 40 MG/DL Desirable: Low Risk: Greater than 60 MG/DL 83 LDL INTERPRETATION: Low Risk Optimal Level: LDL Less than 100 MG/DL Near or Above Optimal: LDL 100-129 MG/DL Borderline High Risk: LDL 130-159 MG/DL High Risk: LDL 160-189 MG/DL Very High Risk: LDL Greater than 189 MG/DL 84 Anion gap measurement may be of limited value in the presence of any alkalosis, especially in a combined acid base disorder. . 85 A metabolite of Naproxen, O-desmethylnaproxen, has been shown to interfere with the Jendrassik-[place] method for measuring total bilirubin. Samples from patients who have taken Naproxen have shown spurious elevation in total bilirubin levels. 86 Because ethnic data is not always readily [...] 15-29 5 Kidney failure <15 (or dialysis) 87 CHOLESTEROL INTERPRETATION: Desirable: Less than 200 MG/DL Borderline-High Risk: 200-239 MG/DL High-Risk: 240 MG/DL and over 88 HDL INTERPRETATION: Undesirable: High Risk: Less than 40 MG/DL Desirable: Low Risk: Greater than 60 MG/DL 89 LDL INTERPRETATION: Low Risk Optimal Level: LDL Less than 100 MG/DL Near or Above Optimal: LDL 100-129 MG/DL Borderline High Risk: LDL 130-159 MG/DL High Risk: LDL 160-189 MG/DL Very High Risk: LDL Greater than 189 MG/DL 90 FINAL: NO GROWTH DAY 2 (<1,000 CFU/mL) 91 CHOLESTEROL INTERPRETATION: Desirable: Less than 200 MG/DL Borderline-High Risk: 200-239 MG/DL High-Risk: 240 MG/DL and over 92 HDL INTERPRETATION: Undesirable: High Risk: Less than 40 MG/DL Desirable: Low Risk: Greater than 60 MG/DL 93 LDL INTERPRETATION: Low Risk Optimal Level: LDL Less than 100 MG/DL Near or Above Optimal: LDL 100-129 MG/DL Borderline High Risk: LDL 130-159 MG/DL High Risk: LDL 160-189 MG/DL Very High Risk: LDL Greater than 189 MG/DL 94 Anion gap measurement may be of limited value in the presence of any alkalosis, especially in a combined acid base disorder. . 95 Note change in reference range as of 12/29/07. The change was based on recommendations from the [place] [employer]. 96 Please note change in reference range effective 07 . 97 A metabolite of Naproxen, O-desmethylnaproxen, has been shown to interfere with the Jendrassik-[place]entworth method for measuring total bilirubin. Samples from patients who have taken Naproxen have shown spurious elevation in total bilirubin levels. 98 Because ethnic data is not always readily [...] 15-29 5 Kidney failure <15 (or dialysis) 99 CHOLESTEROL INTERPRETATION: Desirable: Less than 200 MG/DL Borderline-High Risk: 200-239 MG/DL High-Risk: 240 MG/DL and over 100 HDL INTERPRETATION: Undesirable: High Risk: Less than 40 MG/DL Desirable: Low Risk: Greater than 60 MG/DL 101 LDL INTERPRETATION: Low Risk Optimal Level: LDL Less than 100 MG/DL Near or Above Optimal: LDL 100-129 MG/DL Borderline High Risk: LDL 130-159 MG/DL High Risk: LDL 160-189 MG/DL Very High Risk: LDL Greater than 189 MG/DL 102 Anion gap measurement may be of limited value in the presence of any alkalosis, especially in a combined acid base disorder. . 103 Note change in reference range as of 12/29/07. The change was based on recommendations from the [place] [employer]. 104 Please note change in reference range effective 07 . 105 A metabolite of Naproxen, O-desmethylnaproxen, has been shown to interfere with the Jendrassik-Wentworth method for measuring total bilirubin. Samples from patients who have taken Naproxen have shown spurious elevation in total bilirubin levels. 106 Because ethnic data is not always readily [...] 15-29 5 Kidney failure <15 (or dialysis) 107 Anion gap measurement may be of limited value in the presence of any alkalosis, especially in a combined acid base disorder. . 108 Note change in reference range as of 12/29/07. The change was based on recommendations from the [place] [employer]. 109 Please note change in reference range effective 07 . 110 A metabolite of Naproxen, O-desmethylnaproxen, has been shown to interfere with the Jendrassik-Mercedes method for measuring total bilirubin. Samples from patients who have taken Naproxen have shown spurious elevation in total bilirubin levels. 111 Because ethnic data is not always readily [...] 15-29 5 Kidney failure <15 (or dialysis) 112 CHOLESTEROL INTERPRETATION: Desirable: Less than 200 MG/DL Borderline-High Risk: 200-239 MG/DL High-Risk: 240 MG/DL and over 113 HDL INTERPRETATION: Undesirable: High Risk: Less than 40 MG/DL Desirable: Low Risk: Greater than 60 MG/DL 114 LDL INTERPRETATION: Low Risk Optimal Level: LDL Less than 100 MG/DL Near or Above Optimal: LDL 100-129 MG/DL Borderline High Risk: LDL 130-159 MG/DL High Risk: LDL 160-189 MG/DL Very High Risk: LDL Greater than 189 MG/DL 115 FASTING PATIENT MAY HAVE RESULTS PER DOCTOR'S AUTHORIZATION. Questions regarding this report should be directed to your doctor. 116 Anion gap measurement may be of limited value in the presence of any alkalosis, especially in a combined acid base disorder. . 117 Note change in reference range as of 12/29/07. The change was based on recommendations from the [place] [employer]. 118 Please note change in reference range effective 07 . 119 A metabolite of Naproxen, O-desmethylnaproxen, has been shown to interfere with the Jendrassik-Mercedes method for measuring total bilirubin. Samples from patients who have taken Naproxen have shown spurious elevation in total bilirubin levels. 120 Because ethnic data is not always readily [...] 15-29 5 Kidney failure <15 (or dialysis) 121 CHOLESTEROL INTERPRETATION: Desirable: Less than 200 MG/DL Borderline-High Risk: 200-239 MG/DL High-Risk: 240 MG/DL and over 122 HDL INTERPRETATION: Undesirable: High Risk: Less than 40 MG/DL Desirable: Low Risk: Greater than 60 MG/DL 123 LDL INTERPRETATION: Low Risk Optimal Level: LDL Less than 100 MG/DL Near or Above Optimal: LDL 100-129 MG/DL Borderline High Risk: LDL 130-159 MG/DL High Risk: LDL 160-189 MG/DL Very High Risk: LDL Greater than 189 MG/DL 124 FASTING 125 CHOLESTEROL INTERPRETATION: Desirable: Less than 200 MG/DL Borderline-High Risk: 200-239 MG/DL High-Risk: 240 MG/DL and over 126 HDL INTERPRETATION: Undesirable: High Risk: Less than 40 MG/DL Desirable: Low Risk: Greater than 60 MG/DL 127 LDL INTERPRETATION: Low Risk Optimal Level: LDL Less than 100 MG/DL Near or Above Optimal: LDL 100-129 MG/DL Borderline High Risk: LDL 130-159 MG/DL High Risk: LDL 160-189 MG/DL Very High Risk: LDL Greater than 189 MG/DL 128 A metabolite of Naproxen, O-desmethylnaproxen, has been shown to interfere with the Jendrassik-Mercedes method for measuring total bilirubin. Samples from patients who have taken Naproxen have shown spurious elevation in total bilirubin levels. 129 UNABLE TO CALCULATE IND.BILI D.BILI IS <0.1 130 CHOLESTEROL INTERPRETATION: Desirable: Less than 200 [...] Risk: LDL Greater than 189 MG/DL 133 Anion gap measurement may be of limited value in the presence of any alkalosis, especially in a combined acid base disorder. . 134 Note change in reference range as of 12/29/07. The change was based on recommendations from the [place] [employer]. 135 Please note change in reference range effective 07 . 136 CHOLESTEROL INTERPRETATION: Desirable: Less than 200 MG/DL Borderline-High Risk: 200-239 MG/DL High-Risk: 240 MG/DL and over 137 HDL INTERPRETATION: Undesirable: High Risk: Less than 40 MG/DL Desirable: Low Risk: Greater than 60 MG/DL 138 LDL INTERPRETATION: Low Risk Optimal Level: LDL Less than 100 MG/DL Near or Above Optimal: LDL 100-129 MG/DL Borderline High Risk: LDL 130-159 MG/DL High Risk: LDL 160-189 MG/DL Very High Risk: LDL Greater than 189 MG/DL 139 Anion gap measurement may be of limited value in the presence of any alkalosis, especially in a combined acid base disorder. . 140 Note change in reference range as of 12/29/07. The change was based on recommendations from the [place] [employer]. 141 Please note change in reference range effective 07 . 142 Anion gap measurement may be of limited value in the presence of any alkalosis, especially in a combined acid base disorder. . 143 Please note change in reference range [...] a combined acid base disorder. . 148 Classification: Desirable . 149 CALCULATED LDL APPROXIMATES THE VALUE OF A DIRECT LDL MEASUREMENT. Classification: Optimal Level . 150 FASTING CPK ORDERED BY DR NGUYEN PATIENT MAY HAVE RESULTS PER DOCTOR'S AUTHORIZATION. Questions regarding this report should be directed to your doctor. 151 Anion gap measurement may be of limited value in the presence of any alkalosis, especially in a combined acid base disorder. . 152 Classification: Desirable . 153 Classification: Low . 154 CALCULATED LDL APPROXIMATES THE VALUE OF A DIRECT LDL MEASUREMENT. Classification: Optimal Level . 155 PATIENT MAY HAVE RESULTS PER DOCTOR'S AUTHORIZATION. Questions regarding this report should be directed to your doctor. 156 Anion gap measurement may be of limited value in the presence of any alkalosis, especially in a combined acid base disorder. . 157 Classification: Desirable . 158 Classification: Low . 159 CALCULATED LDL APPROXIMATES THE VALUE OF A DIRECT LDL MEASUREMENT. Classification: Optimal Level . 160 FASTING PLEASE SEND COPY OF RESULTS TO PATIENT. 161 Classification: Desirable . 162 Classification: Low . 163 CALCULATED LDL APPROXIMATES THE VALUE OF A DIRECT LDL MEASUREMENT. Classification: Optimal Level . Procedures Date Code Description Status 06/17/2018 03340 EKG Tracing & Interpretation Completed 12/07/2017 55143 EKG Tracing & Interpretation Completed 11/08/2017 13508 Treadmill Interp/Report Only Completed 11/08/2017 61309 Stress Test Supervsn W/Out I/R Completed 11/06/2017 70953 EKG, Interpretation Only Completed 11/05/2017 08569 ECHO Transthorasic Realtime 2D W Doppler & Color Flow Completed Hosp 09/28/2017 80259 EKG Tracing & Interpretation Completed 09/02/2017 50284 ECHO Transthoracic, Real-Time 2D With Doppler And Color Completed Flow 09/02/2017 54864 ECHO Transthoracic, Real-Time 2D With Doppler And Color Completed Flow 08/26/2017 39891 EKG Tracing & Interpretation Completed 04/05/2017 48611 EKG Tracing & Interpretation Completed 10/26/2016 21754 EKG Tracing & Interpretation Completed 03/31/2016 28199 EKG Tracing & Interpretation Completed 12/31/2015 12509 EKG Tracing & Interpretation Completed 06/11/2015 31094 EKG Tracing & Interpretation Completed 08/27/2014 84393 EKG Tracing & Interpretation Completed 04/04/2014 73303 ECHO Transthoracic, Real-Time 2D With Doppler And Color Completed Flow 02/26/2014 61969 EKG Tracing & Interpretation Completed 07/07/2013 41359 EKG Tracing & Interpretation Completed 12/30/2012 84412 EKG Tracing & Interpretation Completed 09/07/2012 99918 EKG Tracing & Interpretation Completed 09/01/2012 81546 Treadmill Interp/Report Only Completed 09/01/2012 98507 Stress Test Supervsn W/Out I/R Completed 09/01/2012 98721 EKG, Interpretation Only Completed 05/13/2012 67829 EKG Tracing & Interpretation Completed 04/04/2012 76818 EKG Tracing & Interpretation Completed 01/15/2012 04665 Rad Exam; Knee Comp Completed 01/15/2012 24252 Xray Knee 3 Views Completed 01/15/2012 30733 Rad Exam; Knee, Ap&L Completed 01/15/2012 31225 Rad Exam; Hip Unilat Completed 01/15/2012 82467 Rad Exam; Pelvis Completed 12/07/2011 95989 EKG Tracing & Interpretation Completed 09/22/2011 18860 Holter Monitoring 24 HR New Completed 09/09/2011 29305 EKG Tracing & Interpretation Completed 09/02/2011 44041 EKG Tracing & Interpretation Completed 08/31/2011 71748 EKG Tracing & Interpretation Completed 08/17/2011 82660 EKG Tracing & Interpretation Completed 07/24/2011 43747 Holter Monitoring 24 HR New Completed 07/16/2011 12299 EKG Tracing & Interpretation Completed 04/13/2011 86866 EKG Tracing & Interpretation Completed 01/16/2011 36802 ECHO Transthoracic, Real-Time 2D With Doppler And Color Completed Flow 01/01/2011 22033 Treadmill Interp/Report Only Completed 01/01/2011 66002 Stress Test Supervsn W/Out I/R Completed 12/11/2010 07765 EKG Tracing & Interpretation Completed 03/07/2010 [id number] Mammogram Completed 01/22/2010 58005 ECHO Stress Test Incl Perf Contiuous ekg Monitoring Completed W/Phys Superv 09/25/2009 30885 EKG Tracing & Interpretation Completed 03/07/2009 [id number] Mammogram Completed 01/03/2009 50200 EKG Tracing & Interpretation Completed 10/15/2008 40224 EKG Tracing & Interpretation Completed 01/18/2008 33486 Stress Test Completed 01/18/2008 10137 Stress Test Completed 01/18/2008 35108 ECHO/Stress Completed 01/18/2008 00440 ECHO/Stress Completed 01/18/2008 37434 ECHO/Stress Completed 06/06/2007 21007 EKG Tracing & Interpretation Completed 12/14/2006 95225 Amb.BP Monitor/Phys Interp&Report Completed 12/14/2006 41776 Amb.BP Monitor/Phys Interp&Report Completed 09/27/2006 34827 ECHO/Stress Completed 09/27/2006 27098 ECHO/Stress Completed 09/27/2006 98701 Stress Test Completed 05/31/2006 89935 EKG Tracing & Interpretation Completed 05/31/2006 82915 EKG Tracing & Interpretation Completed 06/15/2005 61522 ECHO/Stress Completed 06/15/2005 46608 Stress Test Completed 05/20/2005 71777 EKG Tracing & Interpretation Completed Encounters Type Date Location Provider Dx Diagnosis Office Visit 12/07/2017 [facility] Angel Shaw R07.9 Chest pain, 8:20a Jimi Nguyen unspecified I47.1 Supraventricular tachycardia I25.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 w/o ang pctrs E78.00 Pure hypercholesterolemia, unspecified I10 Essential (primary) hypertension Office Visit 11/09/2017 [facility] Renny K92.2 Gastrointestinal 8:30a Assoc,IZAIAH Van hemorrhage, Hospitalists unspecified R07.9 Chest pain, unspecified I47.1 Supraventricular tachycardia I25.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 w/o ang pctrs Office Visit 11/08/2017 [facility] Demond Montanez R07.9 Chest pain, 4:09p Of Jonnie Clemente M.D. unspecified Office Visit 11/08/2017 [facility] Renny K92.2 Gastrointestinal 8:29a Assoc,omid Andre, IZAIAH hemorrhage, Hospitalists unspecified I47.1 Supraventricular tachycardia R07.9 Chest pain, unspecified E03.9 Hypothyroidism, unspecified I25.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 w/o ang pctrs Office Visit 11/07/2017 [facility] Nhan Delcid R07.9 Chest pain, 8:29a Assoc,omid Lockett MD unspecified Hospitalists I25.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 w/o ang pctrs R10.11 Right upper quadrant pain D63.8 Anemia in other chronic diseases classified elsewhere Office Visit 11/06/2017 [facility] Demond Montanez I25.10 Athscl heart 4:21p Of Jonnie Clemente M.D. disease of [place] coronary artery w/o ang pctrs Office Visit 11/06/2017 [facility] Nhan Delcid R07.9 Chest pain, 8:28a Assoc,omid Lockett MD unspecified Hospitalists R10.11 Right upper quadrant pain I25.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 w/o ang pctrs D63.8 Anemia in other chronic diseases classified elsewhere Office Visit 11/05/2017 3:27p [facility] Angel Shaw R07.9 Chest pain, Jimi Nguyen unspecified R10.11 Right upper quadrant pain I25.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 w/o ang pctrs I10 Essential (primary) hypertension R94.31 Abnormal electrocardiogram [ECG] [EKG] Office Visit 11/05/2017 [facility] Sybil R07.9 Chest pain, 8:28a Assoc,omid Alamo NP unspecified Hospitalists I25.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 w/o ang pctrs R10.11 Right upper quadrant pain I10 Essential (primary) hypertension Office Visit 09/28/2017 2:20p [facility] Angel Shaw I10 Essential (primary) Of Jonnie Nguyen M.D. hypertension I47.1 Supraventricular tachycardia I25.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 w/o ang pctrs E78.00 Pure hypercholesterolemia, unspecified I71.4 Abdominal aortic aneurysm, without rupture Office Visit 09/02/2017 1:30p [facility] Nurse Visit IC I10 Essential (primary) Of [employer] hypertension Office Visit 08/26/2017 8:20a [facility] Angel FKalli I10 Essential (primary) Jimi Nguyen hypertension E78.00 Pure hypercholesterolemia, unspecified I25.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 w/o ang pctrs I47.1 Supraventricular tachycardia I34.0 Nonrheumatic mitral (valve) insufficiency I71.4 Abdominal aortic aneurysm, without rupture R01.1 Cardiac murmur, unspecified R94.31 Abnormal electrocardiogram [ECG] [EKG] Office Visit 04/05/2017 8:40a [facility] Angel Shaw I10 Essential (primary) Jimi Nguyen hypertension E78.00 Pure hypercholesterolemia, unspecified I25.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 w/o [facility] pctrs I47.1 Supraventricular tachycardia I34.0 Nonrheumatic mitral (valve) insufficiency Office Visit 12/02/2016 11:00a [facility] Dunia Tavares, I10 Essential (primary) [place] hypertension E78.00 Pure hypercholesterolemia, unspecified I25.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 w/o ang pctrs Office Visit 10/26/2016 [facility] I47.1 Supraventricular 9:20a Cardiology Jimi Nguyen tachycardia I34.0 Nonrheumatic mitral (valve) insufficiency I10 Essential (primary) hypertension E78.00 Pure hypercholesterolemia, unspecified I25.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 w/o ang pctrs R53.83 Other fatigue Office Visit 03/31/2016 [facility] I47.1 Supraventricular 1:20p Cardiology Jimi Nguyen tachycardia I34.0 Nonrheumatic mitral (valve) insufficiency I10 Essential (primary) hypertension E78.00 Pure hypercholesterolemia, unspecified I25.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 w/o ang pctrs Office Visit 12/31/2015 [facility] Angel Shaw I47.1 Supraventricular 10:30a Cardiology Hernesto Nguyen M.D. tachycardia [employer] I34.0 Nonrheumatic mitral (valve) insufficiency I10 Essential (primary) hypertension E78.0 Pure hypercholesterolemia I25.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 w/o ang pctrs I44.0 Atrioventricular block, first degree Office Visit 06/11/2015 [facility] Angel Shaw I47.1 Supraventricular 1:00p Cardiology Hernesto Nguyen M.D. tachycardia [employer] I34.0 Nonrheumatic mitral (valve) insufficiency I10 Essential (primary) hypertension E78.0 Pure hypercholesterolemia Office Visit 08/27/2014 [facility] 427.0 PSVT Paroxysmal 1:20p Cardiology Jimi Nguyen Supraventricular Tachycardia 785.1 Palpitations 401.1 Hypertension Benign 424.0 Mitral Valve Disorder 414.01 Coronary Atherosclerosis [place] Office Visit 04/10/2014 [facility] Dunia Tavares, 427.0 PSVT Paroxysmal 11:00a [facility] Supraventricular [facility] [employer] Tachycardia 785.1 Palpitations 401.1 Hypertension Benign Office Visit 02/26/2014 [facility] Shaw 414.01 Coronary 3:40p Cardiology Jimi Nguyen Atherosclerosis [place] 401.1 Hypertension Benign 424.0 Mitral Valve Disorder 785.1 Palpitations Office Visit 07/07/2013 2:40p [facility] Angel Shaw 401.0 Joy Nguyen M.D. Malignant 427.0 PSVT Paroxysmal Supraventricular Tachycardia 414.01 Coronary Atherosclerosis [place] Office Visit 12/30/2012 [facility] Shaw 414.01 Coronary 12:20p Cardiology Jimi Nguyen Atherosclerosis [place] 401.1 Hypertension Benign 427.0 PSVT Paroxysmal Supraventricular Tachycardia Office Visit 09/07/2012 11:40a [facility] Angel Shaw 401.9 Joy Nguyen M.D. Unspec 414.01 Coronary Atherosclerosis [place] 786.50 Pain Chest Unspec 427.0 PSVT Paroxysmal Supraventricular Tachycardia Office Visit 09/02/2012 12:51p [facility] Goldy 786.51 Pain Precordial Assoc,omid Roy M.D. Hospitalists 401.9 Hypertension Unspec 414.01 Coronary Atherosclerosis [place] Office Visit 09/01/2012 1:11p [facility] Angel Shaw 786.50 Pain Chest Jimi Nguyen Unspec 414.01 Coronary Atherosclerosis [place] 427.0 PSVT Paroxysmal Supraventricular Tachycardia Office Visit 08/31/2012 12:50p [facility] Chiquita Campos, 786.51 Pain Precordial Assoc,pc N.P. Hospitalists 401.9 Hypertension Unspec 414.01 Coronary Atherosclerosis [place] Office Visit 07/14/2012 3:00p [facility] Nurse Visit cc 401.1 Hypertension Benign Office Visit 07/07/2012 11:40a [facility] Angel Shaw 424.0 Mitral Valve Jimi Nguyen Disorder 427.0 PSVT Paroxysmal Supraventricular Tachycardia 414.01 Coronary Atherosclerosis [place] Office Visit 06/10/2012 9:50a [facility] Angel Shaw 424.0 Mitral Valve Jimi Nguyen Disorder 427.0 PSVT Paroxysmal Supraventricular Tachycardia 272.4 Hyperlipidemia Other Unspec 414.01 Coronary Atherosclerosis [place] Office Visit 05/13/2012 11:00a [facility] Angel Shaw 424.0 Mitral Valve Jimi Nguyen Disorder 272.4 Hyperlipidemia Other Unspec 427.0 PSVT Paroxysmal Supraventricular Tachycardia 414.01 Coronary Atherosclerosis [place] Office Visit 04/04/2012 [facility] Shaw 427.0 PSVT Paroxysmal 3:40p Cardiology Jimi Nguyen Supraventricular Tachycardia 272.4 Hyperlipidemia Other Unspec 424.0 Mitral Valve Disorder 414.01 Coronary Atherosclerosis [place] Office Visit 01/15/2012 Orthopedic Kai Loya, 451.11 Phlebitis & 10:15a Services Of Jimi Thrombophlebitis C.M.A. Femoral Vein (Deep)(Superficial 716.96 Arthropathy Unspec Lower Leg 715.95 Osteoarthrosis Unspec Genlzd Or Localized Pelvic & Thigh Office Visit 01/13/2012 [facility] Cathie Zavala, 401.1 Hypertension 10:00a Cardiology N.P. Benign 427.0 PSVT Paroxysmal Supraventricular Tachycardia 272.4 Hyperlipidemia Other Unspec Office Visit 12/30/2011 2:00p [facility] Angel Shaw 424.0 Mitral Valve AT [facility] [place] Jimi Nguyen Disorder 401.1 Hypertension Benign 785.1 Palpitations 427.0 PSVT Paroxysmal Supraventricular Tachycardia 786.2 Cough Office Visit 12/07/2011 1:20p [facility] Angel Shaw 424.0 Mitral Valve Jimi Nguyen Disorder 401.1 Hypertension Benign 785.1 Palpitations 427.0 PSVT Paroxysmal Supraventricular Tachycardia Office Visit 09/28/2011 10:30a [facility] Cathie Zavala, 785.1 Palpitations N.P. 401.1 Hypertension Benign Office Visit 09/09/2011 1:30p [facility] Angel Shaw 424.0 Mitral Valve Jimi Nguyen Disorder 785.0 Tachycardia Unspec 414.01 Coronary Atherosclerosis [place] 272.4 Hyperlipidemia Other Unspec Office Visit 09/02/2011 10:20a [facility] Angel Shaw 424.0 Mitral Valve AT [facility] [place] Jimi Nguyen Disorder 785.0 Tachycardia Unspec 786.50 Pain Chest Unspec 414.01 Coronary Atherosclerosis [place] Office Visit 08/31/2011 11:40a [facility] Angel Shaw 424.0 Mitral Valve Jimi Nguyen Disorder 785.0 Tachycardia Unspec 786.50 Pain Chest Unspec 785.1 Palpitations Office Visit 08/27/2011 2:30p [facility] Cathie Zavala, 785.0 Tachycardia Cardiology AT N.P. Unspec [facility] [place] Office Visit 08/17/2011 3:00p [facility] Shaw 424.0 Mitral Valve Cardiology Jimi Nguyen Disorder 414.01 Coronary Atherosclerosis [place] 785.1 Palpitations 785.0 Tachycardia Unspec Office Visit 07/16/2011 10:20a [facility] Angel Shaw 424.0 Mitral Valve Jimi Nguyen Disorder 414.01 Coronary Atherosclerosis [place] 401.1 Hypertension Benign Office Visit 04/13/2011 2:40p [facility] Angel Shaw 424.0 Mitral Valve Jimi Nguyen Disorder 414.01 Coronary Atherosclerosis [place] 401.1 Hypertension Benign 272.4 Hyperlipidemia Other Unspec Office 01/01/2011 [facility] Dilma S. 794.31 Electrocardiogram Visit 9:04a Pieter Shetty M.D. (ECG) (EKG) Abnormal 414.01 Coronary Atherosclerosis [place] 401.1 Hypertension Benign 786.50 Pain Chest Unspec 272.4 Hyperlipidemia Other Unspec V45.82 Percutaneous Transluminal Coronary [place] Postsurg Status Office Visit 12/11/2010 Tyra Shaw 414.01 Coronary 2:00p Pieter Nguyen M.D. Atherosclerosis [place] 272.0 Hypercholesterolemia Pure 401.1 Hypertension Benign 785.2 Murmur Cardiac Undiagnosed Office Visit 08/13/2010 11:20a DO Not Use [employer] Jose Angel King 599.0 UTI Urinary Tract AT Duncan Campbell M.D. Infection Site Not Spec Office Visit 01/06/2010 9:00a DO Not Use [employer] Jose Angel King 401.1 Hypertension Benign AT Duncan Campbell M.D. 414.01 Coronary Atherosclerosis [place] 272.0 Hypercholesterolemia Pure 244.9 Hypothyroidism Other Unspec 530.81 Esophageal Reflux Office 09/25/2009 [facility] Angel Shaw 272.0 Hypercholesterolemia Pure Visit 11:00a Cardiology Jimi Nguyen 414.01 Coronary Atherosclerosis [place] 401.1 Hypertension Benign Office Visit 08/29/2009 2:00p DO Not Use [employer] AT Jose Angel King 465.9 URI Upper Duncan Campbell M.D. Respiratory Infections Acute Unspec Sites Office Visit 01/16/2009 10:00a [facility] Angel Shaw 401.1 Joy Nguyen M.D. Benign 414.01 Coronary Atherosclerosis [place] 272.0 Hypercholesterolemia Pure 425.4 Cardiomyopathy Other Prim Office Visit 01/03/2009 9:00a [facility] Jose Angel King 401.1 Hypertension Benign Assoc AT Jimi Campbell [facility] 414.01 Coronary Atherosclerosis [place] 244.9 Hypothyroidism Other Unspec 272.0 Hypercholesterolemia Pure 729.5 Pain In Limb Office Visit 11/20/2008 [facility] Nurse Visit cc 401.1 Hypertension Benign 9:30a Cardiology Office Visit 10/15/2008 [facility] 414.01 Coronary 8:40a Cardiology Jimi Nguyen Atherosclerosis [place] 272.0 Hypercholesterolemia Pure 401.1 Hypertension Benign 425.4 Cardiomyopathy Other Prim Office Visit 10/20/2007 9:00a [facility] Jose Angel King 414.01 Coronary Assoc AT Jimi Campbell Atherosclerosis [facility] [place] 530.81 Esophageal Reflux 272.0 Hypercholesterolemia Pure 401.1 Hypertension Benign Office Visit 07/11/2007 10:00a [facility] Angel Shaw 401.1 Joy Nguyen M.D. Benign 414.01 Coronary Atherosclerosis [place] 272.0 Hypercholesterolemia Pure Office Visit 06/06/2007 2:00p [facility] Angel Shaw 401.1 Joy Nguyen M.D. Benign 414.01 Coronary Atherosclerosis [place] 272.0 Hypercholesterolemia Pure Office Visit 04/20/2007 3:15p [facility] Rogelio King 414.01 Coronary Assoc AT Jimi Campbell Atherosclerosis [facility] [place] 272.0 Hypercholesterolemia Pure 401.1 Hypertension Benign 244.9 Hypothyroidism Other Unspec Office Visit 11/30/2006 9:00a [facility] Angel Shaw 401.0 Hypertension Jimi Nguyen Malignant 272.0 Hypercholesterolemia Pure 414.01 Coronary Atherosclerosis [place] 796.2 Blood Pressure Reading Elevated W/O Hypertension Office Visit 05/31/2006 [facility] Angel Sahw 414.01 Coronary 3:20p Cardiology Jimi Nguyen Atherosclerosis [place] 272.0 Hypercholesterolemia Pure Office Visit 05/20/2005 [facility] 414.01 Coronary 10:20a Cardiology Jimi Nguyen Atherosclerosis [place] 401.0 Hypertension Malignant Plan of Treatment Future Appointment(s):09/14/2018 10:00 am - Angel Nguyen M.D. at [facility]07/04/2018 3:00 pm - Christina Sorensen NP at [facility]2018 10:30 am - Nurse Visit cc at [facility]06/22/2018 12:00 pm - Nurse Visit cc at [facility]06/17/2018 - Angel Nguyen M.D.I47.1 Supraventricular [id number] Atherosclerotic heart disease of [place] coronary artery withE78.00 Pure hypercholesterolemia, [id number] Essential ( primary) [id number] Atherosclerosis of [place] arteries of extremities with cpiroS24.1 Bradycardia, unspecifiedNew Orders:Holter Monitor, Scheduled: Follow up:ov chaperone 2 weeks ov JFM 3 M
[2018-07-06 11:06] VITALS: BP 192/78
--- NOTE | 2018-07-06 12:04 | UC ---
Throat Pain/Nasal Larry HPI - HPI Summary HPI Summary: 78 y/o female presents to the urgent care c/o sinus congestion, pressure and pain w/ yellowish nasal discharge for the past month. Pt reports Hx of sinusitis specially in the winter. She also states Hx of HTN and she saw her PCP last week and he changed her BP medication that she is expecting to arrive soon. However she also states Hx white coat HTN. Her sinus symptoms have been worsening the past week despite taking OTC medications and using the flonase Nasal spray. Sinus pain is 4/10 w/ moderate yellowish PND. Pt denies ANDRADE , dizziness, palpitations, SOB, chest pain, abdominal pain, N/V/D. - History of Current Complaint Chief Complaint: UCRespiratory Stated Complaint: SINUS ISSUE Time Seen by Provider: 07/06/18 11:54 Hx Obtained From: Patient Hx Last Menstrual Period: Years ago. Onset/Duration: Gradual Onset, Lasting Weeks - 4 weeks, Still Present, Worse Since - 1 week Severity: Moderate Pain Intensity: 5 Pain Scale Used: 0-10 Numeric Cough: Nonproductive Associated Signs & Symptoms: Positive: Sinus Discomfort, Nasal Discharge - yellowish and green. Negative: Fever Related History: Other (Noted In Comments) - Hx of chronic sinusitis - Epiglottits Risk Factors Epiglottis Risk Factors: Negative - Allergies/Home Medications Allergies/Adverse Reactions: Allergies Allergy/AdvReac Type Severity Reaction Status Date / Time albuterol Allergy Intermediate Hives Verified 07/06/18 09:49 tetanus toxoid, adsorbed Allergy Intermediate Rash Verified 07/06/18 09:49 PMH/Surg Hx/FS Hx/Imm Hx Previously Healthy: Yes Endocrine History: Dyslipidemia Other Endocrine History: vitaming D defficiency Cardiovascular History: Hypertension GI/ History: Gastroesophageal Reflux Other History Of: Anticoagulant Therapy - Asa 81 mg a day. Negative For: HIV, Hepatitis B, Hepatitis C - Surgical History Surgical History: Yes Surgery Procedure, Year, and Place: Right total hip. ACS MULTILINK - cardiac stent - 2003. carotid artery surgery. hiatal hernia repair-. cataract - Family History Known Family History: Positive: Cardiac Disease - Mother, Hypertension Family History: Father: CVA - Social History Occupation: Retired Lives: With Family Alcohol Use: Occasionally Substance Use Type: None Smoking Status (MU): Never Smoked Tobacco Have You Smoked in the Last Year: No - Immunization History Most Recent Influenza Vaccination: none Most Recent Tetanus Shot: allergic Most Recent Pneumonia Vaccination: within 10 years Review of Systems All Other Systems Reviewed And Are Negative: Yes Constitutional: Positive: Negative Skin: Positive: Negative Eyes: Positive: Negative ENT: Positive: Nasal Discharge - yellowish and green, Sinus Congestion, Sinus Pain/Tenderness, Other - +PND Respiratory: Positive: Cough - dry cough at times Cardiovascular: Positive: Negative Gastrointestinal: Positive: Negative Genitourinary: Positive: Negative Motor: Positive: Negative Neurovascular: Positive: Negative Musculoskeletal: Positive: Negative Neurological: Positive: Negative Psychological: Positive: Negative Is Patient Immunocompromised?: No Physical Exam - Summary Physical Exam Summary: Vitals: reviewed General: Well developed, well-nourished old female patient with NAD. Head and face: Normocephalic and atraumatic, Positive tenderness over the frontal and maxillary sinuses.. Eyes: Conjunctiva clear - Visual acuity: WNL,Visual cooper. PERRLA, EOMI intact w/out limitation or complaint of pain. eyelashes clear. mild tearing and clear drainage observed. No ciliary flush. No chemosis, No photophobia. Normal fundoscopic exam; no proptosis, exophthalmos, nystagmus. ENT: Ears and TM with normal limits. Nose: edematous and erythematous nasal mucosa with with yellowish discharge and erythematous mucosa. Pharynx with erythema, no exudate. Moderate yeelosih PND Neck: Supple, no JVD, no carotid bruits and no lymphadenopathy. Lungs: clear, no rales, no rhonchi, no wheezes. CVS: RRR, S1 and S2 present no murmurs or gallops appreciated. Abdomen: soft nontender with positive bowel sounds. Extremities: no edema noted. Neuro: WNL. Skin: warm and dry Triage Information Reviewed: Yes Vital Signs: Initial Vital Signs Temp 98 F 07/06/18 09:46 Pulse 76 07/06/18 09:46 Resp 16 07/06/18 09:46 BP 220/107 07/06/18 09:46 Pulse Ox 98 07/06/18 09:46 Throat Pain/Nasal Course/Dx - Course Course Of Treatment: 78 y/o female presents to the urgent care c/o sinus congestion, pressure and pain w/ yellowish nasal discharge for the past month. Pt reports Hx of sinusitis specially in the winter. She also states Hx of HTN and she saw her PCP last week and he changed her BP medication that she is expecting to arrive soon. However she also states Hx white coat HTN. Her sinus symptoms have been worsening the past week despite taking OTC medications and using the flonase Nasal spray. Sinus pain is 4/10 w/ moderate yellowish PND. Pt denies ANDRADE, dizziness, palpitations, SOB, chest pain, abdominal pain, N/V /D.Hx obtained. Pt with 1 month of symptoms getting worse. Pt Rx Augmentin PO and advised to continue using flonase nasal spray and taking Claritin D. Pt's BP was retaken after 1 hr and decrease 192/79. Pt is asymptoamtic at this momement and was strongly advised to take her BP medications until the new one arrives, also to monitor her BP and decrease salt in her diet. Strongly advised if she develops ANDRADE, visual changes, SOB, chest pain to inmediately go to the ER. Pt given ENT referral w/ Dr Coppola if not improvment of her symptoms since Hx of chronic sinusitis.Discharge instructions explained to Pt. Pt understood and agreed with plan of care. Left clinic ambulating, A&Ox3 and hemodynamically stable - Differential Dx/Diagnosis Differential Diagnosis/HQI/PQRI: Influenza, Otitis Media, Pharyngitis, Sinusitis , Tonsillitis, URI Provider Diagnosis: Acute bacterial sinusitis, Uncontrolled hypertension Discharge - Sign-Out/Discharge Documenting (check all that apply): Patient Departure - D/C home All imaging exams completed and their final reports reviewed: No Studies - Discharge Plan Condition: Stable Disposition: HOME Prescriptions: Amoxicillin/Clavulanate TAB* [Augmentin TAB 875*] 875 mg PO BID #20 tab Patient Education Materials: Sinusitis (ED), Low-Sodium Diet (ED) Referrals: Nadya Martinez MD [Primary Care Provider] - 2 Days Angel Coppola MD [Medical Doctor] - 1 Week Additional Instructions: 1- Please increase fluid intake and rest. Take Augmentin PO as directed take full course of antibiotic to avoid resistance. Please take yogurt w/ probiotics or Culturelle to protect you GI system 2-Continue Using Flonase nasal spray as directed to help drain fluid. Also buy saline drops to clear sinuses as directed 3-Continue taking Claritin PO to alleviates sinus congestion 4-Please f/u w/ ENT DR Coppola if symptoms do not improve for further management and treatment. 5-Your BP is elevated today. Please take your BP medications and decrease salt in your diet, monitor BP and if it continues to be elevated please f/u with your PCP for further management. If you develop chest pain, dizziness, visual disturbances, SOB, or severe ANDRADE please go immediately to the ER for further management. - Billing Disposition and Condition Condition: STABLE Disposition: Home
== END 2018-07-06 12:33 | disposition home or self-care (01) ==
LOC: UCEAST 09:35
DX: J01.80 Other acute sinusitis (principal); I10 Essential (primary) hypertension; Z88.8 Allergy status to other drugs, medicaments and biological substances; Z88.7 Allergy status to serum and vaccine
CPT/HCPCS: 99212; G0463

== ENCOUNTER 2018-08-28 11:38 | Observation (INO) | payer MEDICARE ==
[2018-08-28] MEDS ORDERED: Metoprolol Tartrate IV* 1 MG/ML 5 ML VIAL ONE (11:51)
[2018-08-28] MEDS ORDERED: Metoprolol Tartrate IV* 1 MG/ML 5 ML VIAL IV ONE (11:53)
--- NOTE | 2018-08-28 11:53 | ED ---
HPI Chest Pain - HPI Summary HPI Summary: This patient is a 78 year old F brought in by ambulance to [facility] with a chief complaint of sudden onset sharp shooting chest pain since 10:30. The patient notes that the pain radiates to her right shoulder and right jaw. The patient reports that her symptoms began after she bent over to brain picker a scanlon. Per EMS, the patients BP was elevated. 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 The patient rates the pain 3/10 in severity. Symptoms aggravated by nothing. Symptoms alleviated by nothing. Patient reports ANDRADE. Patient denies weakness in extremities. The patient has hx of cardiac stent placement and descending AAA. The patient sees Dr. Salazar as her building analyst/supervisor. Patient takes Diltiazem daily, Diovan daily, and Digoxin x3 weekly. - History of Current Complaint Chief Complaint: EDChestPainROMI Hx Obtained From: Patient, EMS Hx Last Menstrual Period: Years ago. Onset/Duration: Started Minutes Ago, Atraumatic, Still Present Time of Onset: 10:30 Timing: Constant Initial Severity: Severe Current Severity: Mild Pain Intensity: 3 Pain Scale Used: 0-10 Numeric - Additional Pertinent History Primary Care Physician: [id number] - Allergy/Home Medications Allergies/Adverse Reactions: Allergies Allergy/AdvReac Type Severity Reaction Status Date / Time albuterol Allergy Intermediate Hives Verified 08/28/18 12:33 tetanus toxoid, adsorbed Allergy Intermediate Rash Verified 08/28/18 12:33 Home Medications: Home Medications Aspirin EC TAB* [Ecotrin EC Low Dose 81 MG*] 81 mg PO DAILY 08/28/18 [History Confirmed 08/28/18] Valsartan TAB* [Diovan TAB*] 80 mg PO DAILY 08/28/18 [History Confirmed 08/28/18 ] guaiFENesin ER TAB [Mucinex*] 1,200 mg PO BID PRN 08/28/18 [History Confirmed ] PMH/Surg Hx/FS Hx/Imm Hx Endocrine/Hematology History: Reports: Hx Anticoagulant Therapy - Asa 81 mg a day. , Hx Thyroid Disease Denies: Hx Diabetes Cardiovascular History: Reports: Hx Angina, Hx Coronary Artery Disease - Stent LAD,2003, Hx Hypercholesterolemia, Hx Hypertension - on meds, Other Cardiovascular Problems/Disorders - AORTIC ANEURYSM, HIATAL HERNIA Denies: Hx Congestive Heart Failure, Hx Deep Vein Thrombosis, Hx Myocardial Infarction, Hx Pacemaker/ICD Respiratory History: Denies: Hx Asthma, Hx Chronic Obstructive Pulmonary Disease (COPD), Hx Lung Cancer GI History: Reports: Other GI Disorders - hiatal hernia Denies: Hx Gall Bladder Disease, Hx Gastrointestinal Bleed, Hx Ulcer, Hx Urosepsis History: Denies: Hx Kidney Stones, Hx Renal Disease Musculoskeletal History: Reports: Hx Arthritis Sensory History: Reports: Hx Contacts or Glasses Denies: Hx Hearing Aid Opthamlomology History: Reports: Hx Contacts or Glasses Neurological History: Denies: Hx Dementia, Hx Migraine, Hx Seizures, Hx Transient Ischemic Attacks (TIA) Psychiatric History: Denies: Hx Anxiety, Hx Depression, Hx Panic Disorder, Hx Schizophrenia, Hx Bipolar Disorder - Cancer History Hx Chemotherapy: No Hx Radiation Therapy: No - Surgical History Surgery Procedure, Year, and Place: Right total hip. ACS MULTILINK - cardiac stent - 2004. carotid artery surgery. hiatal hernia repair-. cataract Infectious Disease History: No Infectious Disease History: Denies: Hx Clostridium Difficile, Hx Hepatitis, Hx Human Immunodeficiency Virus (HIV), Hx of Known/Suspected MRSA, Hx Shingles, Hx Tuberculosis, Hx Known/ Suspected VRE, Hx Known/Suspected VRSA, History Other Infectious Disease, Traveled Outside the [place] in Last 30 Days - Family History Known Family History: Positive: None, Cardiac Disease - Mother, Hypertension Family History: Father: CVA - Social History Alcohol Use: Occasionally Substance Use Type: Reports: None Smoking Status (MU): Never Smoked Tobacco Have You Smoked in the Last Year: No Review of Systems Negative: Fever Positive: Chest Pain Negative: Cough Negative: Vomiting Positive: Headache All Other Systems Reviewed And Are Negative: Yes Physical Exam - Summary Physical Exam Summary: Appearance: The patient is well-nourished in no acute distress and in no acute pain. Skin: The skin is warm and dry and skin color reflects adequate perfusion. HEENT: The head is normocephalic and atraumatic. The pupils are equal and reactive. The conjunctivae are clear and without drainage. Nares are patent and without drainage. Mouth reveals moist mucous membranes and the throat is without erythema and exudate. The external ears are intact. The ear canals are patent and without drainage. The tympanic membranes are intact. Neck: The neck is supple with full range of motion and non-tender. There are no carotid bruits. There is no neck vein distension. Respiratory: Chest is non-tender. Lungs are clear to auscultation and breath sounds are symmetrical and equal. Cardiovascular: Heart is regular rate and rhythm. There is no murmur or rub auscultated. There is no peripheral edema and pulses are symmetrical and equal. Abdomen: The abdomen is soft and non-tender. There are normal bowel sounds heard in all four quadrants and there is no organomegaly palpated. Musculoskeletal: There is no back tenderness noted. Extremities are non-tender with full range of motion. There is good capillary refill. There is no peripheral edema or calf tenderness elicited. Good pulses in bilateral radial and right dorsalis pedis. Cannot get left dorsalis pedis pulse. Neurological: Patient is alert and oriented to person, place and time. The patient has symmetrical motor strength in all four extremities. Cranial nerves are grossly intact. Deep tendon reflexes are symmetrical and equal in all four extremities. Psychiatric: The patient has an appropriate affect and does not exhibit any anxiety or depression. Triage Information Reviewed: Yes Vital Signs On Initial Exam: Initial Vitals Temp Pulse Resp BP Pulse Ox 99.5 F 111 17 241/127 93 08/28/18 11:39 08/28/18 11:39 08/28/18 11:39 08/28/18 11:39 08/28/18 11:39 Vital Signs Reviewed: Yes Diagnostics - Vital Signs Vital Signs Temp Pulse Resp BP Pulse Ox 08/28/18 11:39 99.5 F 111 17 241/127 93 - Laboratory Result Diagrams: 08/28/18 12:07 08/28/18 12:07 Lab Statement: Any lab studies that have been ordered have been reviewed, and results considered in the medical decision making process. - Radiology CXR Radiology Interpretation Completed By: Radiologist Summary of Radiographic Findings: No active cardiopulmonary disease. Dr. Gutierrez has reviewed this report. - CT CTA Chest/Abd/Pelvis CT Interpretation Completed By: Radiologist Summary of CT Findings: IMPRESSION: Atherosclerotic aortic arch without aneurysmal dilatation or aortic dissection. Fusiform dilatation of the abdominal aorta at the diaphragmatic hiatus measuring up to 3.8 x 4.3 cm with peripheral thrombus and irregularity. The infrarenal abdominal aorta demonstrates no definite aneurysmal dilatation. Right hip replacement. Left hepatic cyst is noted. Dr. Gutierrez has reviewed this report. - EKG 11:40 Cardiac Rate: Tachycardia - at 107 bpm EKG Rhythm: Sinus Tachycardia Summary of EKG Findings: sinus tachycardia at 107 bpm. Chest Pain Course/Dx - Course Course Of Treatment: Ms. Araiza presented after a sudden episode of chest pain into her back after she was bending over. She has been vascular disease including a AAA. She was found by EMS to be quite hypertensive which she still present on arrival here. She was given 3 doses of Lopressor which brought her blood pressure into a manageable range. She was also mildly tachycardic on arrival. She was nontoxic in appearance and therefore I waited for creatinine to return and when her GFR allowed it, a CTA was obtained. CTA showed no acute pathology and the hospitalist service was contacted and consulted for admission after I spoke with Dr. Figueroa. - Diagnoses Provider Diagnoses: Chest pain - Provider Notifications Discussed Care Of Patient With: Capo Gamez Time Discussed With Above Provider: 14:07 Instructed by Provider To: Other - Discussed patient care with Dr. Gamez, building analyst/supervisor, and informed him of the patient's presentation. Discussed patient care with Dr. Richards, hospitalist, who agreed to admit the patient to [facility]. Discharge - Sign-Out/Discharge Documenting (check all that apply): Patient Departure - admit to [facility] Patient Received Moderate/Deep Sedation with Procedure: No - Discharge Plan Condition: Stable Disposition: ADMITTED TO [facility] - Billing Disposition and Condition Condition: STABLE Disposition: Admitted to [facility] - Attestation Statements Document Initiated by Demarco: Yes Documenting Scribe: Justyna Vo Provider For Whom Demarco is Documenting (Include Credential): Wyatt Gutierrez MD Scribe Attestation: Justyna Nino, scribed for Wyatt Gutierrez MD on 08/28/18 at 1821. Scribe Documentation Reviewed: Yes Provider Attestation: The documentation as recorded by the Justyna chavez accurately reflects the service I personally performed and the decisions made by me, Wyatt Gutierrez MD Status of Scribe Document: Viewed
--- OUTSIDE RECORDS SUMMARY | 2018-08-28 12:12 | XMS REPORT | Continuity of Care Document ---
:1940 External Reference #:[id number] Author Name Angel Coppola MD Address [address] [place] [address] Care Team Providers Name Role Phone Nadya Zavala M.D. 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 Primary Care Physician Unavailable Payers Date Identification Numbers Payment Provider Subscriber Policy Number: [id number] [place] [employer] [employer] [place] Ara[place] PayID: [id number] [address] [place] [address] Policy Number: [id number] [facility] [place] Araiza PayID: [id number] [address] [place] [address] Advance Directives Description No Information Available Problems Date Description Provider Status Onset: 12/15/2011 Musculoskeletal symptom Brenden Aguilera M.D. Active Onset: 12/15/2011 Posterior rhinorrhea Brenden Aguilera M.D. Active Onset: 08/02/2018 Essential hypertension Brenden Aguilera M.D. Active Family History Date Family Member(s) Observation Comments General Heart Disease General Thyroid Disease Social History Type Date Description Comments Sex Unknown Occupation Retired Tobacco Use Start: Unknown Never Smoked Cigarettes Tobacco Use Start: Unknown Never Smoked Cigars Tobacco Use Start: Unknown Never Smoked A Pipe Smokeless Tobacco Never Used Smokeless Tobacco ETOH Use Currently consumes alcohol Tobacco Use Start: Unknown Patient has never smoked Allergies, Adverse Reactions, Alerts Date Description Reaction Status Severity Comments 12/01/2011 Tetanus Rash Active Moderate Pt self reports red rash in streak like form after injection 12/15/2011 Albuterol HIVES Active Medications Medication Date Status Form Strength Qnty SIG Indications Ordering Provider Levothyroxine Active Tablets 75mcg 1 by Unknown Sodium 000 mouth every day Diltiazem HCL ER Active Caps ER 240mg Unknown 000 24HR Diovan Active Tablets 80mg 1 by Unknown 000 mouth every day Digoxin Active Tablets 250mcg 1 tab Unknown 000 twice weekly wed/wed Coq10 Active Capsules 200mg 1 by Unknown 000 mouth every day Aspirin 81 Low Active Chewtabs 81mg daily Unknown Dose 000 Rosuvastatin Active Tablets 5mg Unknown Calcium 000 D3 High Potency Active Capsules 1000Unit Unknown 000 Diltiazem Hx Brenden Pimentel 012 - Tequilainger Jimi 019 Plavix Hx Unknown 000 - 019 Digoxin Hx Unknown 000 - 019 Crestor Hx Unknown 000 - 019 Nexium Hx Unknown 000 - 019 Aspirin Ec Hx Unknown Lo-Dose 000 - 019 Levothroid Hx Unknown 000 - 019 Immunizations Description No Information Available Vital Signs Date Vital Result Comment 08/05/2018 11:26am Weight 123.00 lb Weight 55.793 kg Height 61 inches 5'1" Height in cm's 154.9 cm BMI (Body Mass Index) 23.2 kg/m2 12/15/2011 9:10am BP Systolic 188 mmHg Fu with keyliner for BP BP Diastolic 90 mmHg Fu with keyliner for BP Heart Rate 70 /min Respiratory Rate 16 /min Weight 149.00 lb Weight 67.586 kg Height 63 inches 5'3" Height in cm's 160.0 cm BMI (Body Mass Index) 26.4 kg/m2 Results Description No Information Available Procedures Date Code Description Status 08/05/2018 98480 Nasal Endoscopy, Diagnostic Completed 12/15/2011 79909 Fiberoptic Laryngoscopy Completed Encounters Type Date Location Provider Dx Diagnosis Office Visit 08/05/2018 Matt,Nicolasa Novoa32.9 Chronic sinusitis, 11:15a 05/10/07 MD Anat unspecified G50.1 Atypical facial pain Office Visit 12/15/2011 Matt,After Brenden Pimentel [phone] Postnasal Drip 9:15a 05/10/07 Jimi Aguilera 729.89 Musculoskeletal Symptoms Limbs Other Plan of Treatment No Information Available
[2018-08-28 12:23] LABS: ABS Basophils 0 10^3/ul (0-0.2); ABS Eosinophils 0.2 10^3/ul (0-0.6); ABS Lymphocytes 1.8 10^3/ul (1.0-4.8); ABS Monocytes 0.6 10^3/ul (0-0.8); ABS Neutrophils 3.9 10^3/ul (1.5-7.7); ABS Nucleated RBC 0 10^3/ul; Eosinophil % 2.8 %; Hematocrit 41 % (33-41); Hemoglobin 13.6 g/dL (12.0-16.0); Lymphocyte % 27.5 %; Mean Corpuscular HGB Conc 34 g/dL (31-36); Mean Corpuscular Hemoglobin 32 pg (27-31); Mean Corpuscular Volume 94 fL (80-97); Mean Platelet Volume 9.4 fL (7.4-10.4); Nucleated Red Blood Cells % 0.1; Platelet Count 177 10^3/uL (150-450); Red Blood Count 4.31 10^6 /uL (3.70-4.87); Red Cell Distribution Width 14 % (10.5-15); White Blood Count 6.4 10^3/uL (3.5-10.8)
[2018-08-28 12:36] LABS: INR 0.94 (0.77-1.02)
[2018-08-28 12:41] LABS: Albumin 4.2 g/dL (3.2-5.2); Albumin/Globulin Ratio 1.3 (1-3); BUN/Creatinine Ratio 25.3 (8-20); Calcium 9.3 mg/dL (8.6-10.3); EGFR African American 68.7 (>60); EGFR Non-African American 56.7 (>60); Globulin 3.3 g/dL (2-4); Potassium 4.3 mmol/L (3.5-5.0); Total Bilirubin 0.5 mg/dL (0.2-1.0); Total Protein 7.5 g/dL (6.4-8.9)
[2018-08-28 12:43] LABS: Troponin I 0.01 ng/mL (<0.04)
[2018-08-28] MEDS ORDERED: Iodixanol* (CONTRAST) 320 MG/ML 100 ML SDV IV ONE (13:00)
[2018-08-28 13:03] LABS: Digoxin 0.5 ng/ml (0.8-2.0)
[2018-08-28 13:09] LABS: Urine Appearance Clear; Urine Bilirubin Negative (Negative); Urine Blood Negative (Negative); Urine Color Straw; Urine Glucose Negative (Negative); Urine Ketones Negative (Negative); Urine Nitrite Negative (Negative); Urine Protein Negative (Negative); Urine Specific Gravity 1.005 (1.010-1.030); Urine Urobilinogen Negative (Negative)
[2018-08-28 13:19] LABS: TSH (Thyroid Stimulating Horm) 1.49 mcIU/mL (0.34-5.60)
[2018-08-28] MEDS ORDERED: Aspirin TAB* 325 MG PO ONE (14:29)
[2018-08-28] MEDS ORDERED: Ondansetron INJ* 2 MG/ML VIAL IV PRN (15:12)
[2018-08-28] MEDS ORDERED: Acetaminophen TAB* 325 MG PO PRN (15:12)
[2018-08-28] MEDS ORDERED: guaiFENesin ER TAB 600 MG PO PRN (15:15)
[2018-08-28] MEDS: Valsartan TAB* 80 MG PO SCH ×2 (15:50→20:52)
[2018-08-28] MEDS ORDERED: Enoxaparin(*) 40 MG/0.4 ML SYR SUBCUT SCH (16:00)
--- NOTE | 2018-08-28 16:22 | CONSULT ---
Subjective Date of Service: 08/28/18 Interval History: Date of admission and consult 08/28/2018 PMD: Dr. Zavala Textile Conservator: Dr. 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 At the bottom of the bend she felt sudden sharp pain across her right chest and back at the mid thorax level in a singular rib distribution. It was very severe and sharp for 30+ continuous minutes. She also felt right neck pain. She had never felt anything like that before so she was concerned and called 911. She says it felt nothing like her angina that prompted the 2011 PCI. She states this symptom was indigestion in her chest but this was not reproduced on a treadmill prior to PCI. Dr. Salazar's notes from around that time period state that back pain alone was her anginal symptom. Her initial BP was severely elevated at 241 /127 mmHg. She has a known history of both hypertension and white coat hypertension. She was given IV doses of IV lopressor. Her BP is now 159/84 mmHg. She is asymptomatic now. She is usually quite active and is asymptomatic with this except for leg claudication. She had a lower extremity angiogram with Dr. Emery last week and it was decided on conservative management of her leg claudication. PmHX CAD s/p PCI (stable angina) PAD AAA SVT HTN. Ambulatory BP monitor - (09/16/2017) normal average blood pressures which was fairly low in the 90's and low 100's much of the day and occasional brief excursions to the 140's Dyslipidemia GI Bleed - (10/2017) Evaluated at [facility] and [facility]. Transfused. Hiatal hernia Allergies: DT vaccination; Albuterol, Reaction: heart racing; Zetia, Reaction: myalgias allergy list reviewed on 07/04/2018 Surgical Hx: Carotid Endarterectomy Left - (03/2004) Dr. Emery FH: due to Stroke; Heart Disease - (age 82 Years). Mother: due to Heart Disease; Vascular Disease - (age 77 Years) htn of Abdominal Aneurysm. . (M Siblings:2. 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 Alcohol: Rarely consumes alcohol .Drug Use: Denies Drug Use. Medications Active Medications: Acetaminophen (Tylenol Tab*) 650 mg PO Q6H PRN PRN Reason: FEVER/PAIN Aspirin (Aspirin Ec Tab*) 81 mg PO DAILY [facility] Cholecalciferol (Vitamin D Tab*) 1,000 units PO DAILY [facility] Coenzyme Q10 (Coenzyme Q10 (Nf)) cap PO DAILY [facility] Digoxin (Lanoxin Tab*) 0.25 mg PO .// [facility] Diltiazem HCl (Cardizem Cd Cap*) 240 mg PO DAILY [facility] Enoxaparin Sodium (Lovenox(*)) 40 mg SUBCUT Q24H [facility] Last Admin: 08/28/18 15:50 Dose: Not Given Guaifenesin (Mucinex*) 1,200 mg PO BID PRN PRN Reason: CONGESTION Levothyroxine Sodium (Synthroid Tab*) 75 mcg PO DAILY [facility] Loratadine (Claritin Tab(Nf)) 10 mg PO DAILY [facility] Ondansetron HCl (Zofran Inj*) 4 mg IV Q6H PRN PRN Reason: NAUSEA Rosuvastatin Calcium (Crestor (Nf)) 2.5 mg PO QPM [facility]; Protocol Valsartan (Diovan Tab*) 80 mg PO BID [facility] Last Admin: 08/28/18 15:50 Dose: 80 mg Home Medications: Cholecalciferol TAB* [Vitamin D TAB*] 1,000 unit PO DAILY 11/05/17 [History Confirmed 08/28/18] Digoxin TAB* [Lanoxin TAB*] 0.25 mg PO ./11/05/17 [History Confirmed ] Levothyroxine TAB* [Synthroid 75 MCG TAB*] 75 mcg PO DAILY 11/05/17 [History Confirmed 08/28/18] LoraTADine TAB(NF) [Claritin 10 MG TAB(NF)] 10 mg PO DAILY 11/05/17 [History Confirmed 08/28/18] Rosuvastatin (NF) [Crestor (NF)] 2.5 mg PO QPM 11/05/17 [History Confirmed 08/28] Ubidecarenone [Co Q-10] 100 mg PO DAILY 11/05/17 [History Confirmed 08/28/18] Diltiazem CD CAP* [Cardizem CD CAP*] 240 mg PO DAILY cap.cd 11/09/17 [Rx Confirmed 08/28/18] Aspirin EC TAB* [Ecotrin EC Low Dose 81 MG*] 81 mg PO DAILY 08/28/18 [History Confirmed 08/28/18] Valsartan TAB* [Diovan TAB*] 80 mg PO DAILY 08/28/18 [History Confirmed 08/28/18 ] guaiFENesin ER TAB [Mucinex*] 1,200 mg PO BID PRN 08/28/18 [History Confirmed ] Review of Systems - Measurements Intake and Output: Intake and Output Last 24 Hours 08/26/18 08/27/18 08/28/18 08/29/18 06:59 06:59 06:59 06:59 Weight 123 lb - Review of Systems Constitutional Symptoms: Positive: Fatigue Negative: Weight Gain, Weight Loss, Weakness, Night Sweats Dermatology: Negative: Rash, Skin Lesions HEENT: Negative: Change in Hearing, Vertigo Eyes: Negative: Change in Vision, Double Vision Thyroid: Negative: Cold Intolerance, Heat Intolerance Pulmonary: Negative: Wheezing, Respiratory Distress, Shortness of Breath, Exercise Intolerance Cardiology: Positive: Chest Pain Negative: Shortness of Breath, Palpitations, Swelling of Ankles, Peripheral Vascular Dis, Edema, Faintness, Syncope, Claudication, Paroxysmal Nocturnal Dyspnea, Orthopnea Gastroenterology: Negative: Abdominal Pain, Nausea, Vomiting, Anorexia, Indigestion, Difficulty Swallowing, Constipation, Diarrhea, Blood in Stools, Change in Bowel Habits, Haematemesis, Melena Genital - Urinary: Negative: Dysuria, Hematuria, Polyuria Musculoskeletal: Negative: Joint Pain, Joint Stiffness Endocrinology: Negative: Obesity, Diabetes Hematologic/Lymphatic: Positive: Use of Antiplatelet Drugs Negative: Use of Anticoagulant Neurology: Negative: Change in Speech, Change in Sphincter Function, Change in Walking Psychiatry: Negative: Sexual Dysfunction, Weight Change, Guilt Feelings, Tearfulness, Unusual Fatigue, Unusual Anxiety, Suicidal Ideation, Hypomania, Eating Disorders , Other Review of Systems Statement: All other review of systems negative, unless stated above. Objective Vital Signs: Temp Pulse Resp BP Pulse Ox 99.5 F 65 20 159/84 98 08/28/18 11:39 08/28/18 15:46 08/28/18 15:46 08/28/18 15:46 08/28/18 15:46 Oxygen Devices in Use Now: None Appearance: nad, pleasant Ears/Nose/Mouth/Throat: Clear Oropharnyx, Mucous Membranes Moist Neck: Trachea Midline, - - nml jvp Respiratory: Symmetrical Chest Expansion and Respiratory Effort, Clear to Auscultation Cardiovascular: RRR, No Edema, - - 1/6 murmur Abdominal: NL Sounds; No Tenderness; No Distention Extremities: No Edema Skin: No Rash or Ulcers Neurological: Alert and Oriented x 3 Laboratory Results: 08/28/18 12:07 08/28/18 12:07 INR (Anticoag Therapy) 0.94 (0.77-1.02) 08/28/18 12:07 Total Bilirubin 0.50 mg/dL (0.2-1.0) 08/28/18 12:07 AST 17 U/L (13-39) 08/28/18 12:07 ALT 12 U/L (7-52) 08/28/18 12:07 Alkaline Phosphatase 56 U/L (34-104) 08/28/18 12:07 Total Protein 7.5 g/dL (6.4-8.9) 08/28/18 12:07 Albumin 4.2 g/dL (3.2-5.2) 08/28/18 12:07 Globulin 3.3 g/dL (2-4) 08/28/18 12:07 Albumin/Globulin Ratio 1.3 (1-3) 08/28/18 12:07 TSH 1.49 mcIU/mL (0.34-5.60) 08/28/18 12:07 08/28/18 08/28/18 12:07 14:44 Troponin I 0.01 0.02 Diagnostic Imaging: Chest Pain - (12/2010) 12/18 pharmacologic stress: negative for ischemia, 08/06/11 pharmacologic stress : no evidence of ischemia or infarct. 08/10/11 cardiac catheterization. Anginal chest pain. patent stent in the LAD at the level of the diagonal branch which was widely patent; take off of the diagonal branch which arises from the middle of the stent was widely patent. LCX, tortuous large caliber OM, entire system was normal. RCA: large posterior descending without significant obstruction. Chest Pain - (09/02/2012) Myoview 09/02/12 No fixed or reversible perfusion defect is identified / NSR with NS ST changes consider Dig effect APC's resting hypertension Stress Test - (11/08/2017) nuclear stress test negative for ischemia or infarct. Cta - (06/14/2018) CTA : high-grade lesions of her renal arteries, as well as stable abdominal aortic aneurysm and high-grade lesions of the left tibial artery and mid level lower leg. There was also atherosclerosis of the infrapopliteal arteries, as well as potentially reduced flow from the fem-pop stenosis superiorly. Likely high-grade severe foci of at least 50% degree involving the superficial femoral artery and popliteal artery. Echocardiogram - (11/05/2017) sigmoid septum up to 16mm, mild concentric LVH, EF greater than 65%, aortic sclerosis, trace to mild MR, trace to mild TR, trace PI Echocardiogram - (09/01/2017) mild LVH, EF 65-70%, abnormal diastolic function, sigmoid septum with a mild increase in LVOT velocity with valsalva, trace MR, mild TR, similar to March 2014 except for mild increase in LVOT velocity. CTA chest Indication: Chest pain, back pain. Atherosclerotic aorta is noted. No evidence of aortic dissection is noted although there is some peripheral thrombus noted. The pulmonary arteries are well opacified with no evidence of filling defects. T The abdominal aorta and straight mild ectasia at the thoracic inlet with peripheral thrombus noted. There is ectasia measuring 3.8 x 4.3 cm. Celiac axis and superior mesenteric artery are patent. Renal artery appears patent. The infrarenal abdominal aorta demonstrates atherosclerosis with mild ectasia measuring up to 2.3 cm. Common iliac arteries and external iliac arteries are unremarkable. Lung cooper demonstrate dependent changes. No evidence of alveolar consolidation is noted. EKG Data: ekg today 1: Sinus tachycardia with minimal rate related st changes, limb lead artifact, otherwise unremarkable ekg 2: NSR, nonspecific st changes unchanged from 11/06/2017 ekg Assessment/Plan At this point, my suspicion is that patient had a musculoskeletal muscle pull while bending over and picking up her keys and that the severely elevated BP was secondary to pain and the stress of an ambulance transfer and ER visit. She is now asymptomatic. She has no evidence of myocardial ischemia. I would not be overly aggressive with BP management given her ambulatory BP monitor last year. We can increase the valsartan from 80 mg po daily to bid. Her BP may be better controlled outside of a hospital setting. We will check an echocardiogram tomorrow to ensure there is no acute pericardial process instead of musculoskeletal issues. Given her history I would use tylenol for pain control. Would check 1 more troponin tomorrow morning given her CAD history ( ordered) I anticipate discharge tomorrow after the echocardiogram if she otherwise remains stable.
[2018-08-28] MEDS ORDERED: Atorvastatin* 10 MG TAB PO SCH (18:00)
--- NOTE | 2018-08-28 19:22 | HP ---
CC: Dr. Nadya Zavala; Dr. Angel Salazar * ADMISSION HISTORY AND PHYSICAL: DATE OF ADMISSION: 08/28/18 PRIMARY CARE PROVIDER: Dr. Nadya Zavala. MY ATTENDING WHILE IN THE HOSPITAL: Dr. Tracie Gómez.* (DICTATED BY IZAIAH KNOWLES) OUTPATIENT RESAWYER: Dr. Angel Salazar. CHIEF COMPLAINT: Chest pain x4 hours. HISTORY OF PRESENT ILLNESS: Ms. Araiza is a 78-year-old female with a past medical history significant for coronary artery disease; history of abdominal aortic aneurysm, status post repair; peripheral arterial disease, claudication level; carotid artery disease; sxet-hy-gqmepak hypertension, who presents to the emergency department after approximately 11 a.m. on 08/28/18 she was in her normal state of health, she was not exerting herself and she leaned down and then had a stabbing pain under her right breast radiating into the right side of her neck, which was severe and not associated with any nausea, vomiting, diaphoresis, or shortness of breath. The patient activated EMS and was given aspirin in the ambulance. The patient came to the emergency department and was found to have a blood pressure of systolic greater than 200 and tachycardia. The patient was given nitroglycerin, which worked mainly to control her chest pain and then was given metoprolol tartrate IV 5 mg x3 doses, which brought the patient's blood pressure down to the normal range. The patient had 2 negative troponins. The patient's laboratory data was otherwise unremarkable. The patient's digoxin level was therapeutic. The patient complained of only slight residual cramping pain in her back. The patient denies fevers, chills, abdominal pain, diarrhea, dysuria, hematuria. The patient has recently been evaluated by her vascular surgeon, Dr. Emery, for angiogram of her lower extremity for claudication-level PVD. The patient also has known renal artery stenosis, which has been progressing based on an aorta with runoff from June of this year. The patient had a CTA of her chest, abdomen and pelvis, which showed no aortic dissection and stable aneurysm. The patient had a chest x- ray, which showed no active cardiopulmonary disease. The patient had an EKG , which after review with the orderly, Dr. Capo Gamez, had no concerning ST-segment features. Due to concern for chest pain in a patient with significant risk factors, we were asked to evaluate the patient for admission to the hospital. PAST MEDICAL HISTORY: Coronary artery disease; renal artery stenosis; peripheral arterial disease, claudication level; AAA; carotid artery stenosis; hypertension; hyperlipidemia; paroxysmal SVT; history of diverticular GI bleed. PAST SURGICAL HISTORY: Right hip replacement, AAA repair, hiatal hernia repair in 2013. MEDICATIONS: 1. CoQ10 100 mg p.o. daily. 2. Vitamin D 1000 units p.o. daily. 3. Synthroid 75 mcg p.o. daily. 4. Crestor 2.5 mg p.o. daily. 5. Claritin 10 mg p.o. daily. 6. Digoxin 0.25 mg p.o. Wednesday, Wednesday, Wednesday. 7. Aspirin 81 mg p.o. daily. 8. Valsartan 80 mg p.o. daily. 9. Diltiazem 240 mg p.o. daily. ALLERGIES: ALBUTEROL, TETANUS TOXOID. FAMILY HISTORY: The patient's mother of heart disease. The patient's father of stroke. The patient has a brother, who has heart disease and another brother who has COPD. SOCIAL HISTORY: The patient never smoked. Drinks occasional alcohol. Never used illicit drugs. 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 The patient's surrogate decision maker will be her son , Rhett Araiza. REVIEW OF SYSTEMS: A 14-point review of systems was reviewed and is negative except as above in the HPI. PHYSICAL EXAMINATION GENERAL: The patient is a 78-year-old female, who appears stated age and sitting comfortably in bed, in no acute distress. VITAL SIGNS: At the time of evaluation, temperature 99.5, pulse rate 59, respiratory rate 18, oxygen saturation 97% on room air, blood pressure 151/67. HEENT: Head: Normocephalic, atraumatic. Sclerae anicteric. No conjunctival injection. Nasal mucosa moist. Oral mucosa moist. No pharyngeal erythema, discharge, or exudate. NECK: Supple, nontender. No lymphadenopathy. No carotid bruits auscultated. No JVD. RESPIRATORY: Clear to auscultation bilaterally. No wheezes, rales, or rhonchi. Good air exchange bilaterally. CARDIAC: Regular rate and rhythm. No clicks, murmurs, gallops, or rubs. Pulses are 1+ in the right lower extremity, trace in left lower extremity. No bilateral lower extremity edema noted. ABDOMEN: Soft, nontender, nondistended. Bowel sounds present and normoactive in all 4 quadrants. No hepatosplenomegaly. No abdominal bruits auscultated. No hepatojugular reflux. GENITOURINARY: No suprapubic or CVA tenderness. NEURO: Cranial nerves II through XII intact. No focal deficits. Alert and oriented x3. PSYCHIATRIC: Pleasant and cooperative. SKIN: Clean, dry, and intact. No rash. DIAGNOSTIC STUDIES/LAB DATA: White blood cell count 6.4, hemoglobin 13.6, platelet count 177. INR 0.97. Sodium 139, potassium 4.3, chloride 105, carbon dioxide 26, anion gap 8, BUN 24, creatinine 0.95, glucose 96, lactic acid 1.7, calcium 9.3. Bilirubin 0.5, AST 17, ALT 12, alkaline phosphatase 56. Troponin I 0.01, repeat 0.02. Protein 7.5, albumin 4.2, globulin 3.3. TSH 1.49. Urine : Clear, specific gravity 1.005. Digoxin 1.5. Studies: EKG shows normal sinus rhythm; left axis deviation; T-wave inversions in I, aVL; borderline ST depression in V2, V3, V4, V5; T-wave flattening in V6. Repeat EKG shows no significant changes except for resolution of possible ST- segment depression. Chest x-ray read as no acute cardiopulmonary disease. Chest, abdomen, and pelvis CTA read as atherosclerotic aortic arch without aneurysmal dilatation or aortic dissection, fusiform dilatation of the abdominal aorta with diaphragmatic hiatus measuring up to 3.8 to 4.3 cm with no peripheral thrombus and irregularity, infrarenal abdominal aorta demonstrates no definitive aneurysmal dilatation, right hip replacement, left hepatic cyst noted. ASSESSMENT AND PLAN: Impression: Ms. Araiza is a 78-year-old female with past medical history significant for coronary artery disease, renal artery stenosis, abdominal aortic aneurysm, peripheral arterial disease, hypertension, paroxysmal supraventricular tachycardia, who presents to the emergency department with hypertensive urgency and chest pain, who will be admitted to the hospital for chest pain rule out and control of her blood pressure. 1. Chest pain. The patient's chest pain and presentation have been discussed with Dr. Capo Gamez of Cardiology, who believes that it sounds noncardiac in origin, recommended better control of the patient's blood pressure, serial troponins, and an echocardiogram in the morning. Dr. Gamez recommended against a stress test as she had a low risk stress test in November of 2017. The patient will be continued on her aspirin. The patient is currently chest pain- free. The patient's troponin is not elevated. We will check a lipid profile and hemoglobin A1c. 2. Hypertension. The patient was markedly hypertensive on arrival. The patient's initial blood pressure was 241/127. Manual was confirmed with a systolic blood pressure of 202. The patient's blood pressure in the ED responded to nitroglycerin x1 dose as well as metoprolol tartrate 5 mg IV x3. The patient's blood pressure control has been discussed with Dr. Gamez and her Diovan will be doubled. The patient has known renal artery stenosis, but her kidney function is normal and it needs to be watched closely. Intervention for her renal artery stenosis through her vascular surgeon may be indicated based on her [id number] hypertension. Further renin-angiotensin- aldosterone inhibition may be indicated for control of her blood pressure. We will continue the patient's diltiazem at this time. 3. History of abdominal aortic aneurysm. The patient is not currently dissecting based on CTA results. Continue outpatient followup. 4. Peripheral arterial disease with claudication level. Continue the patient' s Crestor. She is moderately statin intolerant and has refused PCSK9 inhibitors in the past. We will check the patient's lipid profile and hemoglobin A1c for risk factor determination. 5. Paroxysmal supraventricular tachycardia. It is not a current issue for the patient. The patient will be monitored on telemetry. 6. DVT prophylaxis: The patient will have Lovenox subcu. 7. FEN: The patient will have a heart-healthy diet without caffeine. The patient has no fluids indicated at this time. 8. Code status: The patient would like to be a full code. The patient's surrogate decision maker will be her son as above. 9. Disposition: The patient is admitted to observation to the hospital. TIME SPENT: Approximately 75 minutes was spent on the admission of this patient , 45 of which was spent [id number] with the patient obtaining history and physical and discussing treatment plan. This plan was discussed with my attending, Dr. Tracie Gómez, and she is in agreement. IZAIAH KNOWLES [id number]/[facility] #: [id number] [facility] CENTERKathy
[2018-08-28] MEDS ORDERED: Valsartan TAB* 80 MG PO SCH (21:00)
[2018-08-29] MEDS ORDERED: Furosemide IV* 10 MG/ML 2 ML VIAL (20 MG) IV ONE (00:25)
[2018-08-29] MEDS ORDERED: Levothyroxine TAB* 75 MCG TAB PO SCH (06:00)
[2018-08-29 06:52] LABS: ABS Basophils 0.1 10^3/ul (0-0.2); ABS Eosinophils 0.2 10^3/ul (0-0.6); ABS Lymphocytes 1.5 10^3/ul (1.0-4.8); ABS Monocytes 0.5 10^3/ul (0-0.8); ABS Neutrophils 4.4 10^3/ul (1.5-7.7); ABS Nucleated RBC 0 10^3/ul; Eosinophil % 2.8 %; Hematocrit 40 % (33-41); Hemoglobin 13.4 g/dL (12.0-16.0); Lymphocyte % 22.5 %; Mean Corpuscular HGB Conc 33 g/dL (31-36); Mean Corpuscular Hemoglobin 31 pg (27-31); Mean Corpuscular Volume 94 fL (80-97); Mean Platelet Volume 9.3 fL (7.4-10.4); Nucleated Red Blood Cells % 0; Platelet Count 182 10^3/uL (150-450); Red Blood Count 4.28 10^6 /uL (3.70-4.87); Red Cell Distribution Width 15 % (10.5-15); White Blood Count 6.7 10^3/uL (3.5-10.8)
[2018-08-29 07:11] LABS: Troponin I 0.02 ng/mL (<0.04)
[2018-08-29 07:13] LABS: BUN/Creatinine Ratio 21.3 (8-20); Calcium 8.9 mg/dL (8.6-10.3); EGFR African American 83.7 (>60); EGFR Non-African American 69.2 (>60); HDL Cholesterol 44.6 mg/dL; Potassium 3.9 mmol/L (3.5-5.0)
[2018-08-29] MEDS: Valsartan TAB* 80 MG PO SCH (08:14)
[2018-08-29] MEDS ORDERED: Diltiazem CD CAP* 240 MG PO SCH (09:00)
[2018-08-29] MEDS ORDERED: Aspirin EC TAB* 81 MG TAB.EC PO SCH (09:00)
[2018-08-29] MEDS ORDERED: COENZYME Q10 100 MG PO SCH (09:00)
[2018-08-29] MEDS ORDERED: Cholecalciferol TAB* 1000 UNITS PO SCH (09:00)
[2018-08-29] MEDS ORDERED: Digoxin TAB* 0.25 MG PO SCH (09:00)
[2018-08-29] MEDS ORDERED: Cetirizine* 10 MG TAB PO SCH (09:00)
[2018-08-29 13:07] VITALS: BP 150/57
--- NOTE | 2018-08-29 13:55 | ECHO ---
Patient: DELMA SERNA [facility] Rec#: [id number] : 1940 Date: 08/29/2018 Age: 78y Height: 155 cm / 61.0 in Weight: 56 kg / 123.4 lbs Sex: F BSA: 1.54 Room#: 453 Admit Date#: 08/28/2018 Type: Inpatient Referring: MILTON RIVERA Reading: Demond Clemente MD Police Inspector: Cathie Daniels RDCS CC: Angel Salazar MD CC: Nadya Zavala MD Transthoracic Echocardiogram Indication: CP BP: 146/70 HR: 67 Rhythm: NSR Findings History: CAD with prior PCI,PAD,AAA,SVT,HTN,HLD. Technical Comments: The study quality is fair. Completed at 0946. Left Ventricle: The left ventricular chamber size is decreased. There is increased basal septal hypertrophy noted without evidence of an increased gradient across the left ventricular outflow tract. Global left ventricular wall motion and contractility are within normal limits. There is normal left ventricular systolic function. The estimated ejection fraction is 55-60%. Abnormal left ventricular diastolic function is observed. Left Atrium: The left atrial chamber size is normal. Right Ventricle: The right ventricular cavity size is normal. The right ventricular global systolic function is normal. Right Atrium: The right atrium is mildly dilated. Aortic Valve: The aortic valve structure is not well visualized. There is no evidence of aortic regurgitation. There is no evidence of aortic stenosis. Mitral Valve: The mitral valve leaflets are mildly thickened. There is no evidence of mitral regurgitation. There is no evidence of mitral stenosis. Systolic anterior motion is visualized without left ventricular outflow tract obstruction. Tricuspid Valve: The tricuspid valve leaflets are normal. There is no evidence of tricuspid valve regurgitation. Unable to estimate the right ventricular systolic pressure. There is no tricuspid stenosis. Pulmonic Valve: The pulmonic valve appears normal. There is no evidence of pulmonic regurgitation. There is no pulmonic stenosis. Pericardium: The pericardium appears normal. Aorta: There is no dilatation of the ascending aorta. There is no dilatation of the aortic arch. There is no dilation of the aortic root. Pulmonary Artery: The main pulmonary artery is not well visualized. Venous: The venous system is not well visualized. Summary: There are no significant changes when compared to the previous study done on 02/02/18 Conclusions There is increased basal septal hypertrophy noted without evidence of an increased gradient across the left ventricular outflow tract. Global left ventricular wall motion and contractility are within normal limits. There is normal left ventricular systolic function. The estimated ejection fraction is 55-60%. The right ventricular global systolic function is normal. The aortic valve structure is not well visualized. There is no evidence of aortic stenosis. There is no evidence of mitral regurgitation. Systolic anterior motion is visualized without left ventricular outflow tract obstruction. There is no evidence of tricuspid valve regurgitation. Unable to estimate the right ventricular systolic pressure. The pericardium appears normal. There are no significant changes when compared to the previous study done on 02/02/18 Measurements Name Value Normal Range RVIDd (AP) 2D 3.1 cm (0.9 - 2.6) RVDdMajor (2D) 2.5 cm (2.2 - 4.4) RAd ISD 4CH 5 cm (3.4 - 4.9) RA (A4C)W 2.7 cm (2.9 - 4.6) IVSd (2D) 0.8 cm (0.6 - 1) LVPWd (2D) 0.9 cm (0.6 - 1) LVIDd (2D) 3.4 cm (3.6 - 5.4) LVIDs (2D) 2.1 cm - LV FS (2D) 38 % (25 - 45) Aortic Annulus 1.9 cm (1.4 - 2.6) Ao root diameter (2D) 2.7 cm (2.1 - 3.5) Ascending Ao 3.1 cm (2.1 - 3.4) Aortic arch 2.3 cm (1.8 - 3.4) Descending Ao 0.5 cm - LA dimension (AP) 2D 3.3 cm (2.3 - 3.8) LAd ISD 4CH 4.4 cm (2.9 - 5.3) LA ISD 4CH W 3.6 cm (2.5 - 4.5) Name Value Normal Range LA ESV SP 4CH (A/L) 18 ml - LA ESV SP 2CH (A/L) 13 ml - LA ESV BP (A/L) index 18 ml/m2 - Name Value Normal Range MV E-wave Vmax 0.6 m/sec - MV deceleration time 352 msec - MV A-wave Vmax 1.1 m/sec - LV septal e' Vmax 0.08 m/sec - LV lateral e' Vmax 0.06 m/sec - LV E:e' septal ratio 7.5 ratio - LV E:e' lateral ratio 10 ratio - Name Value Normal Range AV Vmax 1.1 m/sec - AV VTI 25.5 cm - AV peak gradient 4 mmHg - AV mean gradient 3 mmHg - LVOT Vmax 1 m/sec - LVOT VTI 18.8 cm - LVOT peak gradient 4 mmHg - LVOT mean gradient 2 mmHg - MARK Vmax 0.49 m/sec - MARK peak gradient 0.95 mmHg - Name Value Normal Range PV Vmax 0.7 m/sec - PV peak gradient 2 mmHg -
--- NOTE | 2018-08-30 01:03 | DS ---
CC: Dr. Zavala; Dr. Salazar * DISCHARGE SUMMARY: DATE OF ADMISSION: DATE OF DISCHARGE: 08/29/18 HISTORY OF PRESENT ILLNESS/HOSPITAL COURSE: This 78-year-old woman presented with 4 hours' duration of chest pain. This is detailed in the admission note. Dr. Gamez came and saw the patient, I believe, in the evening in the emergency room or shortly after admission. The patient's blood pressure in the emergency room initially, I believe, was rather high, systolic was greater than 200. She was given 3 doses of IV metoprolol. At the time of the initial hospital admission exam, her blood pressure was 151/67. I think she complained of some shortness of breath in the middle of the night and was given intravenous furosemide. On the day of discharge, she had no chest pain, no shortness of breath. She really felt quite well. Her blood pressure was 150/57 at 11:30 a.m. At 8 a.m. it was 154/75. Heart rate was 62. The patient was given extra doses of valsartan. She received in the hospital a total of three doses of valsartan before discharge, two on 08/28/18, in addition to the one she took at home and one on the morning of discharge. She will continue on 80 mg b.i.d. at home and a prescription was phoned in. FINAL DIAGNOSES: 1. Chest pain, uncertain etiology. 2. History of coronary artery disease. 3. Abdominal aortic aneurysm. 4. Carotid artery stenosis. 5. Hyperlipidemia. 6. Paroxysmal supraventricular tachycardia. 7. Peripheral arterial disease. 8. Renal artery stenosis. MEDICATIONS ON DISCHARGE: 1. Valsartan 80 mg b.i.d. 2. Co-Q10 100 mg daily. 3. Vitamin D 1000 units daily. 4. Levothyroxine 75 mcg daily. 5. Rosuvastatin 2.5 mg in the evening. 6. Loratadine 10 mg daily. 7. Digoxin 0.25 mg daily. 8. Diltiazem CD 240 mg daily. 9. Aspirin 81 mg daily. 10. Guaifenesin 1200 mg daily p.r.n. CONDITION ON DISCHARGE: Improved. DISPOSITION ON DISCHARGE: Discharged home. [id number]/[facility] #: [id number] [facility]
== END 2018-08-29 14:50 | disposition home or self-care (01) ==
LOC: ED 11:38 → MEDTELE 15:12
PROVIDERS: ADMIT Internal Medicine; ATTEND Internal Medicine
DX: R07.9 Chest pain, unspecified (principal); I25.10 Atherosclerotic heart disease of native coronary artery without angina pectoris; I71.4 Abdominal aortic aneurysm, without rupture; E78.5 Hyperlipidemia, unspecified; I47.1 Supraventricular tachycardia; I73.9 Peripheral vascular disease, unspecified; I70.1 Atherosclerosis of renal artery; Z79.82 Long term (current) use of aspirin; Z87.19 Personal history of other diseases of the digestive system; Z79.01 Long term (current) use of anticoagulants; Z95.5 Presence of coronary angioplasty implant and graft; R51 Headache; Z96.641 Presence of right artificial hip joint
CPT/HCPCS: 36415; 71045; 71275; 74174; 80048; 80053; 80061; 80162; 81003; 83036; 83605; 83735; 84443; 84484; 85025; 85610; 93005; 93306; 96372; 96374; 96375; 99285; A9270-GY; G0378; J1940; J3490; Q9967